=== PATIENT | female | born 1945 | race Caucasian/White ===

== ENCOUNTER 2017-10-03 12:34 | Observation (INO) | payer MEDICARE, BC ==
[2017-10-03 14:29] LABS: Basophils # (A) 0.1 k/uL (0-0.2); Basophils % (A) 1 %; Eosinophils # (A) 0.3 k/uL (0-0.7); Eosinophils % (A) 3 %; HCT 47.6 % (34.0-46.0); HGB 15.5 gm/dL (11.4-16.0); Lymphocytes # (A) 1.7 k/uL (1.0-4.8); Lymphocytes % (A) 23 %; MCHC 32.5 g/dL (31.0-37.0); MCV 92.3 fL (80.0-100.0); Mean Platelet Volume 8.2; Monocytes # (A) 0.3 k/uL (0-1.0); Monocytes % (A) 4 %; Neutrophils % (A) 67 %; Platelet Count 227 k/uL (150-450); RBC 5.16 m/uL (3.80-5.40); RDW 14.6 % (11.5-15.5); WBC 7.5 k/uL (3.8-10.6)
[2017-10-03 14:33] LABS: Partial Thromboplastin Time 23.4 sec (22.0-30.0); Prothrombin Time 9.9 sec (9.0-12.0)
[2017-10-03 14:35] LABS: Appearance,Urine Clear (Clear); Bacteria,Urine Moderate /hpf; Bilirubin,Urine Negative (Negative); Blood,Urine Negative (Negative); Color,Urine Yellow; Glucose,Urine (UA) Negative (Negative); Ketones,Urine Negative (Negative); Leukocyte Esterase,Urine Large (Negative); Mucus,Urine Rare /hpf; Nitrite,Urine Negative (Negative); PH, Urine 6.5 (5.0-8.0); Protein,Urine Negative (Negative); RBC,Urine 5 /hpf (0-5); Urobilinogen,Urine <2.0 mg/dL (<2.0); WBC,Urine 22 /hpf (0-5)
[2017-10-03 14:38] LABS: ALT 31 U/L (9-52); AST 33 U/L (14-36); Albumin 4.5 g/dL (3.5-5.0); Alkaline Phosphatase 73 U/L (38-126); Anion Gap 10 mmol/L; Blood Urea Nitrogen 18 mg/dL (7-17); Calcium 9.7 mg/dL (8.4-10.2); Carbon Dioxide 26 mmol/L (22-30); Chloride 103 mmol/L (98-107); Glucose 93 mg/dL (74-99); Magnesium 1.9 mg/dL (1.6-2.3); Sodium 139 mmol/L (137-145); Total Bilirubin 0.7 mg/dL (0.2-1.3); Total Protein 7.3 g/dL (6.3-8.2)
[2017-10-03 14:42] LABS: Potassium 4.9 mmol/L (3.5-5.1)
[2017-10-03 14:45] LABS: Creatine Kinase 116 U/L (30-135)
--- NOTE | 2017-10-03 14:51 | ED ---
Neuro HPI - General Chief Complaint: Neuro Symptoms/Deficit Stated Complaint: Numbness in side of face and arm Time Seen by Provider: 10/03/17 14:30 Source: patient, RN notes reviewed Mode of arrival: wheelchair Limitations: no limitations - History of Present Illness Is the patient presenting with stroke symptoms?: No Initial Comments: This is a 71-year-old female who states she had an episode of numbness her left leg left arm and left side of her face starting about 11 AM this morning. Lasted about 15 minutes and resolve she has similar episode one or 2 weeks ago which lasted about the same period time. She has no prior history of strokes or TIAs she does states she had not her neck from washing her dog earlier in the week. She denies any blurry vision headache loss of function to her upper or lower extremities at this time no other complaints - Related Data Home Medications: Home Medications Medication Instructions Recorded Confirmed Flurbiprofen [Ansaid] 100 mg PO HS 10/06/15 10/03/17 Fluticasone/Salmeterol [Advair 1 inhalation PO RT-BID 10/06/15 10/03/17 500-50 Diskus] Venlafaxine HCl ER [Effexor Xr] 37.5 mg PO HS 10/06/15 10/03/17 Albuterol Inhaler [Ventolin Hfa 2 puff INHALATION RT-Q6H PRN 10/03/17 10/03/17 Inhaler] Albuterol Nebulized [Ventolin 2.5 mg INHALATION RT-Q6H PRN 10/03/17 10/03/17 Nebulized] Ascorbic Acid [Vitamin C] 250 mg PO DAILY 10/03/17 10/03/17 Cholecalciferol [Vitamin D3] 5,000 unit PO DAILY 10/03/17 10/03/17 Multivitamin/Iron/Folic Acid 1 tab PO DAILY 10/03/17 10/03/17 [Centrum Complete Multivit Tab] Tiotropium 18 Mcg/Puff [Spiriva] 1 cap INHALATION RT-DAILY 10/03/17 10/03/17 Allergies/Adverse Reactions: Allergies Allergy/AdvReac Type Severity Reaction Status Date / Time sulfamethoxazole Allergy Unknown Unknown Verified 10/03/17 14:05 [From Bactrim] trimethoprim [From Bactrim] Allergy Unknown Unknown Verified 10/03/17 14:05 Review of Systems ROS Statement: Those systems with pertinent positive or pertinent negative responses have been documented in the HPI. ROS Other: All systems not noted in ROS Statement are negative. General Exam - General Exam Comments Initial Comments: This is a well-developed well-nourished awake alert oriented 3 female Limitations: no limitations General appearance: alert, in no apparent distress Head exam: Present: atraumatic, normocephalic, normal inspection Eye exam: Present: normal appearance, PERRL, EOMI. Absent: scleral icterus, conjunctival injection, periorbital swelling ENT exam: Present: normal exam, mucous membranes moist Neck exam: Present: normal inspection. Absent: tenderness, meningismus, lymphadenopathy Respiratory exam: Present: normal lung sounds bilaterally. Absent: respiratory distress, wheezes, rales, rhonchi, stridor Cardiovascular Exam: Present: regular rate, normal rhythm, normal heart sounds. Absent: systolic murmur, diastolic murmur, rubs, gallop, clicks GI/Abdominal exam: Present: soft, normal bowel sounds. Absent: distended, tenderness, guarding, rebound, rigid Extremities exam: Present: normal inspection, full ROM, normal capillary refill. Absent: tenderness, pedal edema, joint swelling, calf tenderness Back exam: Present: normal inspection Neurological exam: Present: alert, oriented X3, CN II-XII intact Psychiatric exam: Present: normal affect, normal mood Skin exam: Present: warm, dry, intact, normal color. Absent: rash Stroke [facility] - Lab Data Result diagrams: 10/03/17 14:13 10/03/17 14:13 Lab Results 10/03/17 10/03/17 10/03/17 Range/Units 14:13 14:13 14:13 WBC 7.5 (3.8-10.6) k/uL RBC 5.16 (3.80-5.40) m/uL Hgb 15.5 (11.4-16.0) gm/dL Hct 47.6 H (34.0-46.0) % MCV 92.3 (80.0-100.0) fL MCH 30.0 (25.0-35.0) pg MCHC 32.5 (31.0-37.0) g/dL RDW 14.6 (11.5-15.5) % Plt Count 227 (150-450) k/uL Neutrophils % 67 % Lymphocytes % 23 % Monocytes % 4 % Eosinophils % 3 % Basophils % 1 % Neutrophils # 5.0 (1.3-7.7) k/uL Lymphocytes # 1.7 (1.0-4.8) k/uL Monocytes # 0.3 (0-1.0) k/uL Eosinophils # 0.3 (0-0.7) k/uL Basophils # 0.1 (0-0.2) k/uL PT (9.0-12.0) sec INR (<1.2) APTT (22.0-30.0) sec Sodium 139 (137-145) mmol/L Potassium 4.9 (3.5-5.1) mmol/L Chloride 103 (98-107) mmol/L Carbon Dioxide 26 (22-30) mmol/L Anion Gap 10 mmol/L BUN 18 H (7-17) mg/dL Creatinine 0.64 (0.52-1.04) mg/dL Est GFR (MDRD) Af Amer >60 (>60 ml/min/1.73 sqM) Est GFR (MDRD) Non-Af >60 (>60 ml/min/1.73 sqM) Glucose 93 (74-99) mg/dL Calcium 9.7 (8.4-10.2) mg/dL Magnesium 1.9 (1.6-2.3) mg/dL Total Bilirubin 0.7 (0.2-1.3) mg/dL AST 33 (14-36) U/L ALT 31 (9-52) U/L Alkaline Phosphatase 73 (38-126) U/L Total Creatine Kinase 116 (30-135) U/L CK-MB (CK-2) 1.8 (0.0-2.4) ng/mL CK-MB (CK-2) Rel Index 1.6 Troponin I <0.012 (0.000-0.034) ng/mL Total Protein 7.3 (6.3-8.2) g/dL Albumin 4.5 (3.5-5.0) g/dL Urine Color Urine Appearance (Clear) Urine pH (5.0-8.0) Ur Specific Engelhard (1.001-1.035) Urine Protein (Negative) Urine Glucose (UA) (Negative) Urine Ketones (Negative) Urine Blood (Negative) Urine Nitrite (Negative) Urine Bilirubin (Negative) Urine Urobilinogen (<2.0) mg/dL Ur Leukocyte Esterase (Negative) Urine RBC (0-5) /hpf Urine WBC (0-5) /hpf Urine Bacteria (None) /hpf Urine Mucus (None) /hpf 10/03/17 10/03/17 Range/Units 14:13 14:13 WBC (3.8-10.6) k/uL RBC (3.80-5.40) m/uL Hgb (11.4-16.0) gm/dL Hct (34.0-46.0) % MCV (80.0-100.0) fL MCH (25.0-35.0) pg MCHC (31.0-37.0) g/dL RDW (11.5-15.5) % Plt Count (150-450) k/uL Neutrophils % % Lymphocytes % % Monocytes % % Eosinophils % % Basophils % % Neutrophils # (1.3-7.7) k/uL Lymphocytes # (1.0-4.8) k/uL Monocytes # (0-1.0) k/uL Eosinophils # (0-0.7) k/uL Basophils # (0-0.2) k/uL PT 9.9 (9.0-12.0) sec INR 1.0 (<1.2) APTT 23.4 (22.0-30.0) sec Sodium (137-145) mmol/L Potassium (3.5-5.1) mmol/L Chloride (98-107) mmol/L Carbon Dioxide (22-30) mmol/L Anion Gap mmol/L BUN (7-17) mg/dL Creatinine (0.52-1.04) mg/dL Est GFR (MDRD) Af Amer (>60 ml/min/1.73 sqM) Est GFR (MDRD) Non-Af (>60 ml/min/1.73 sqM) Glucose (74-99) mg/dL Calcium (8.4-10.2) mg/dL Magnesium (1.6-2.3) mg/dL Total Bilirubin (0.2-1.3) mg/dL AST (14-36) U/L ALT (9-52) U/L Alkaline Phosphatase (38-126) U/L Total Creatine Kinase (30-135) U/L CK-MB (CK-2) (0.0-2.4) ng/mL CK-MB (CK-2) Rel Index Troponin I (0.000-0.034) ng/mL Total Protein (6.3-8.2) g/dL Albumin (3.5-5.0) g/dL Urine Color Yellow Urine Appearance Clear (Clear) Urine pH 6.5 (5.0-8.0) Ur Specific Engelhard 1.010 (1.001-1.035) Urine Protein Negative (Negative) Urine Glucose (UA) Negative (Negative) Urine Ketones Negative (Negative) Urine Blood Negative (Negative) Urine Nitrite Negative (Negative) Urine Bilirubin Negative (Negative) Urine Urobilinogen <2.0 (<2.0) mg/dL Ur Leukocyte Esterase Large H (Negative) Urine RBC 5 (0-5) /hpf Urine WBC 22 H (0-5) /hpf Urine Bacteria Moderate H (None) /hpf Urine Mucus Rare H (None) /hpf - NIH Stroke Scale 1a. Level of Consciousness: (0) alert 1b. LOC Questions: (0) answers correctly 1c. LOC Commands: (0) performs tasks correctly 2. Best Gaze: (0) normal 3. Visual: (0) no visual loss 4. Facial Palsy: (0) normal symmetrical movement 5a. Motor Arm Left: (0) no drift 5b. Motor Arm Right: (0) no drift 6a. Motor Leg Left: (0) no drift 6b. Motor Leg Right: (0) no drift 7. Limb Ataxia: (0) absent 8. Sensory: (0) normal 9. Best Language: (0) no aphasia 10. Dysarthria: (0) normal 11. Extinction/Inattention: (0) no abnormality - Medical Decision Making I did a long discussion with the patient and her regarding the findings and did recommend admission for evaluation of TIA. Patient will be admitted I did discuss the case with Dr. Banuelos. - EKG Data -: EKG Interpreted by Me EKG shows normal: sinus rhythm (Sinus rhythm rate of 78 IL interval 126 QRS duration 94 QT since QTC of 412/469 this is a normal-appearing EKG some artifact is present) Past Medical History Past Medical History: Cancer, COPD Additional Past Medical History / Comment(s): BASAL CELL CA, ARTHRITIS, OXYGEN AT 2-2.5 LITERS AT HS. History of Any Multi-Drug Resistant Organisms: None Reported Additional Past Surgical History / Comment(s): COLONOSCOPY'S, RETINAL TEAR LEFT EYE, CATARACT RIGHT EYE. Past Anesthesia/Blood Transfusion Reactions: No Reported Reaction Past Psychological History: Depression Smoking Status: Current every day smoker Past Alcohol Use History: Occasional Past Drug Use History: None Reported - Past Family History Mother Family Medical History: No Reported History Course Vital Signs 10/03/17 10/03/17 10/03/17 12:37 15:32 16:25 Temperature 97.8 F Pulse Rate 88 81 79 Respiratory 20 18 18 Rate Blood Pressure 177/92 159/100 157/91 O2 Sat by Pulse 96 96 96 Oximetry Disposition Clinical Impression: Transient cerebral ischemia Disposition: ADMITTED IP TO THIS HOSP Condition: Stable Referrals: Jamie Brooks DO [Primary Care Provider] - 1-2 days
[2017-10-03 14:58] LABS: Creatine Kinase MB 1.8 ng/mL (0.0-2.4); Troponin I <0.012 ng/mL (0.000-0.034)
--- NOTE | 2017-10-03 14:59 | CT ---
EXAMINATION TYPE: CT brain wo con DATE OF EXAM: 10/03/2017 COMPARISON: NONE HISTORY: Left sided body numbness lasting about [address] DLP: 981.[address] of the brain was performed. The ventricles, basal cisterns and sulci overlying the cerebral convexities demonstrate mild enlargem ent. Small area of remote insult left frontal lobe. There is no evidence for intracranial hemorrhage or sulcal effacement. There is decreased attenuation about the periventricular white matter and deep white matter of both c erebral hemispheres, compatible with chronic small vessel ischemia. Differential diagnosis does inclu de demyelination. No mass effects are seen.No midline shift. Osseous calvarium is intact. If symptoms persist consider MRI. IMPRESSION: 1. Age related atrophic and chronic small vessel ischemic change without acute intracranial process s een at this time.
--- NOTE | 2017-10-03 15:00 | XR ---
EXAMINATION TYPE: XR chest 2V DATE OF EXAM: 10/03/2017 COMPARISON: 01/06/2017 TECHNIQUE: PA and lateral views submitted. HISTORY: Left-sided numbness FINDINGS: The lungs are clear and there is no pneumothorax, pleural effusion, or focal pneumonia. Degenerativ e change of the spine. Hyperinflation suggests COPD. Atherosclerotic change of the aorta. IMPRESSION: 1. No acute process.
[2017-10-03] MEDS ORDERED: SODIUM CHLORIDE 0.9% 1,000 ML IV SCH (16:30)
[2017-10-03] MEDS ORDERED: ALBUTEROL NEBULIZED 2.5 MG/3 ML INHALATION PRN (16:31)
[2017-10-03] MEDS: SYMBICORT 160-4.5 MCG INHALER INHALATION SCH (19:12)
[2017-10-03 20:33] VITALS: RESP 16; BMI 23.6
[2017-10-03] MEDS ORDERED: FLURBIPROFEN 100 MG PO SCH (21:00)
[2017-10-03] MEDS ORDERED: VENLAFAXINE HCL ER 37.5 MG CAP PO SCH (21:00)
[2017-10-03] MEDS ORDERED: ALPRAZolam 0.25 MG TAB PO PRN (22:19)
[2017-10-03] MEDS ORDERED: TEMAZEPAM 15 MG CAP PO PRN (22:19)
[2017-10-03] MEDS ORDERED: VENLAFAXINE HCL ER 37.5 MG CAP PO ONE (23:50)
--- NOTE | 2017-10-04 03:42 | HP ---
HISTORY AND PHYSICAL DATE OF SERVICE: 10/03/2017 CHIEF COMPLAINT: Numbness of the left side, including the face. HISTORY OF PRESENT ILLNESS: This 71-year-old woman with a past medical history of multiple medical problems, including history of COPD, history of basal cell carcinoma, history of depression, nicotine dependence, being followed by Dr. Brooks in the outpatient setting, apparently had episodes of numbness about 4 days ago, with initial numbness of the leg and subsequently it radiated to the arm and subsequently to the left side of the face lasted about 10 minutes, then subsequently patient was doing fine. Today again she had almost recurrent symptoms and this lasted again for 10 minutes, and the patient came to [facility] and was admitted for further evaluation treatment. CBC and BMP were within normal limits. UA showed some evidence of UTI. CT scan of the brain showed age-related atrophic changes without any focal lesions. There is no history of fever, rigor or chills, no history of headache , loss of consciousness, seizures. PAST MEDICAL HISTORY: 1. History of COPD. 2. History of basal cell carcinoma. 3. History of cataracts. 4. History of depression. HOME MEDICATIONS: 1. Albuterol HFA 2 puffs q.6 p.r.n. 2. Spiriva 1 puff 1 cap daily. 3. Ventolin 2.5 q.6 p.r.n. 4. Effexor XR 37.5 mg at bedtime. 5. Multivitamins 1 p.o. daily. 6. Vitamin D3 5000 daily. 7. Vitamin C 250 mg p.o. daily. 8. Advair 500/50 one puff b.i.d. 9. Ibuprofen 100 mg p.o. at bedtime. ALLERGIES: BACTRIM. FAMILY HISTORY: No history of heart disease or strokes in the family. SOCIAL HISTORY: History of smoking on a daily basis. No history of alcohol intake. REVIEW OF SYSTEMS: ENT: As mentioned earlier. No diminished hearing. No diminished vision. CARDIOVASCULAR SYSTEM: No angina, palpitations. RESPIRATORY SYSTEM: No cough, hemoptysis. GI: No nausea, vomiting. : No dysuria or retention. NERVOUS SYSTEM: As mentioned earlier. ALLERGY/IMMUNOLOGY: No asthma, hayfever. MUSCULOSKELETAL: As mentioned earlier. HEMATOLOGY/ONCOLOGY: No history of anemia. ENDOCRINE: No history of diabetes, hypothyroidism. CONSTITUTIONAL: As mentioned earlier. DERMATOLOGY: Negative. RHEUMATOLOGY: Negative. PSYCHIATRY: As mentioned earlier. PHYSICAL EXAMINATION: The patient is alert and oriented x3. Pulse is 81, blood pressure 140/60, respiration 16, temperature 97.2, pulse ox 92% on room air. HEENT: Conjunctivae normal. NECK: No jugular venous distention. CARDIOVASCULAR SYSTEM: S1, S2 muffled. RESPIRATORY SYSTEM: Breath sounds diminished at the bases. No rhonchi. No crackles. ABDOMEN: Soft, non-tender. No mass palpable. LEGS: No edema. No swelling. NERVOUS SYSTEM: Higher functions as mentioned earlier. Cranial nerves 2 through 12 grossly intact. No focal motor or sensory deficit. No signs of cerebellar dysfunction. LYMPHATICS: No lymph node palpable in neck, axillae or groin. JOINTS: No active deforming arthropathy. SKIN: No ulcer, rash, bleeding. LABS/INVESTIGATIONS: At this time CBC is within normal limits and BUN is 18. UA shows possible UTI. ASSESSMENT: 1. Numbness of the left side of the body; possible acute transient ischemic attack involving the right hemisphere. 2. Urinary tract infection, acute. 3. History of chronic obstructive pulmonary disease. 4. History of basal cell carcinoma. 5. History of degenerative joint disease. 6. Chronic hypoxic respiratory failure. 7. History of retinal tear in the left eye. 8. Depression. 9. History of continued ongoing nicotine dependence. RECOMMENDATIONS AND DISCUSSION: In this 71-year-old woman who presented with multiple complex medical issues, we will monitor the patient closely, continue the current medications, continue with symptomatic treatment. Will recommend neuro checks and neurovascular workup and neurology evaluation. Otherwise, antiplatelet agents. Resume the home medications. Check cholesterol. Guarded prognosis because of multiple complex medical issues. Further recommendations to follow. MMODL / IJN: [id number] / MTDMaryam
[2017-10-04 06:29] LABS: Basophils # (A) 0.1 k/uL (0-0.2); Basophils % (A) 1 %; Eosinophils # (A) 0.3 k/uL (0-0.7); Eosinophils % (A) 5 %; HCT 45.5 % (34.0-46.0); HGB 14.5 gm/dL (11.4-16.0); Lymphocytes # (A) 1.9 k/uL (1.0-4.8); Lymphocytes % (A) 30 %; MCH 29.5 pg (25.0-35.0); MCHC 31.8 g/dL (31.0-37.0); MCV 92.7 fL (80.0-100.0); Mean Platelet Volume 7.9; Monocytes # (A) 0.3 k/uL (0-1.0); Monocytes % (A) 5 %; Neutrophils # (A) 3.7 k/uL (1.3-7.7); Neutrophils % (A) 57 %; Platelet Count 220 k/uL (150-450); RBC 4.91 m/uL (3.80-5.40); RDW 15.2 % (11.5-15.5); WBC 6.4 k/uL (3.8-10.6)
[2017-10-04 06:42] LABS: Anion Gap 11 mmol/L; Blood Urea Nitrogen 17 mg/dL (7-17); Calcium 9.4 mg/dL (8.4-10.2); Carbon Dioxide 26 mmol/L (22-30); Chloride 103 mmol/L (98-107); Cholesterol 196 mg/dL (<200); Glucose 105 mg/dL (74-99); HDL Cholesterol 91 mg/dL (40-60); LDL Cholesterol,Calculated 91 mg/dL (0-99); Sodium 140 mmol/L (137-145); Triglycerides 70 mg/dL (<150)
[2017-10-04] MEDS ORDERED: PANTOPRAZOLE 40 MG TABLET PO SCH (07:30)
[2017-10-04] MEDS: NICOTINE 14MG/24HR PATCH TRANSDERM SCH ×2 (08:33→08:37)
[2017-10-04 08:39] VITALS: BP 157/87; TEMP 97.3
[2017-10-04] MEDS ORDERED: CHOLECALCIFEROL 1,000 UNIT TAB PO SCH (09:00)
[2017-10-04] MEDS ORDERED: ASCORBIC ACID 500 MG TAB PO SCH (09:00)
[2017-10-04] MEDS: SYMBICORT 160-4.5 MCG INHALER INHALATION SCH (09:02)
[2017-10-04] MEDS: IPRATROPIUM 0.5 MG/2.5 ML NEBU INHALATION SCH ×3 (09:02→15:37)
--- NOTE | 2017-10-04 11:16 | US ---
EXAMINATION TYPE: US carotid duplex BILAT DATE OF EXAM: 10/04/2017 COMPARISON: NONE CLINICAL HISTORY: stenosis. Left side numbness, no hx of tia EXAM MEASUREMENTS: RIGHT: Peak Systolic Velocity (PSV) cm/sec ----- Right CCA: 52.9 ----- Right ICA: 40.9 ----- Right ECA: 68.6 ICA/CCA ratio: 0.8 RIGHT: End Diastole cm/sec ----- Right CCA: 15.4 ----- Right ICA: 14.0 ----- Right ECA: 17.1 LEFT: Peak Systolic Velocity (PSV) cm/sec ----- Left CCA: 53.9 ----- Left ICA: 56.7 ----- Left ECA: 70.4 ICA/CCA ratio: 1.1 LEFT: End Diastole cm/sec ----- Left CCA: 18.2 ----- Left ICA: 15.4 ----- Left ECA: 15.4 VERTEBRALS (direction of flow): Right Vertebral: Antegrade Left Vertebral: Antegrade Rhythm: Normal No elevated velocities or significant stenosis. Left CCA wall thickening. Plaque seen in bilateral b ulbs. Grayscale, color Doppler, spectral Doppler imaging performed of the carotid arteries. IMPRESSION: No hemodynamic significant stenosis of the proximal internal carotid arteries bilaterall y by Doppler criteria, an indirect measurement of carotid stenosis
[2017-10-04] MEDS ORDERED: LEVOFLOXACIN 500MG-D5W PMX 500 MG in DEXTROSE/WATER 1 100ML.BAG IVPB SCH (12:00)
[2017-10-04] MEDS ORDERED: MULTIVITAMINS, THERA 1 EACH TAB PO SCH (12:00)
[2017-10-04] MEDS ORDERED: ASPIRIN 325 MG TAB PO SCH (12:00)
[2017-10-04 12:38] VITALS: PULSE 88
--- NOTE | 2017-10-04 13:59 | ECHOF ---
Referral Reason:Stroke MEASUREMENTS -------- HEIGHT: 162.6 cm WEIGHT: 62.6 kg BP: 143/93 IVSd: 1.2 cm (0.6 - 1.1) LVIDd: 3.8 cm (3.9 - 5.3) LVPWd: 1.3 cm (0.6 - 1.1) IVSs: 1.5 cm LVIDs: 3.1 cm LVPWs: 1.6 cm LAESV Index (A-L): 19.76 ml/m Ao Diam: 2.9 cm (2.0 - 3.7) AV Cusp: 1.8 cm (1.5 - 2.6) LA Diam: 2.5 cm (2.7 - 3.8) MV EXCURSION: 17.918 mm (> 18.000) MV EF SLOPE: 39 mm/s (70 - 150) EPSS: 0.5 cm MV E Awais: 1.07 m/s MV DecT: 166 ms MV A Awais: 1.05 m/s MV E/A Ratio: 1.03 AR PHT: 166 ms RAP: 5.00 mmHg RVSP: 29.24 mmHg FINDINGS -------- Sinus rhythm. This was a technically good study. The left ventricular size is normal. There is mild concentric left ventricular hypertrophy. Overa ll left ventricular systolic function is moderately impaired with, an EF between 35 - 40 %. Basal a nterior LV wall motion is hypokinetic. Mid anterior LV wall motion is hypokinetic. Inferiorlate ral Hypokinesis The right ventricle is normal in size and function. Normal LA size by volume 22+/-6 ml/m2. The right atrium is normal in size. Aortic valve is trileaflet and is mildly thickened. Trace amount of aortic regurgitation. The mitral valve leaflets are mildly thickened. Mild mitral regurgitation is present. Mild tricuspid regurgitation present. The right ventricular systolic pressure, as measured by Doppl er, is 29.24mmHg. Pulmonic valve appears structurally normal. The aortic root size is normal. Normal inferior vena cava with normal inspiratory collapse consistent with estimated right atrial pre ssure of 5 mmHg. CONCLUSIONS -------- 1. Sinus rhythm. 2. This was a technically good study. 3. The left ventricular size is normal. 4. There is mild concentric left ventricular hypertrophy. 5. Basal anterior LV wall motion is hypokinetic. 6. Mid anterior LV wall motion is hypokinetic. 7. Inferiorlateral Hypokinesis 8. The right ventricle is normal in size and function. 9. Normal LA size by volume 22+/-6 ml/m2. 10. The right atrium is normal in size. 11. Aortic valve is trileaflet and is mildly thickened. 12. Trace amount of aortic regurgitation. 13. The mitral valve leaflets are mildly thickened. 14. Mild mitral regurgitation is present. 15. Mild tricuspid regurgitation present. 16. The right ventricular systolic pressure, as measured by Doppler, is 29.24mmHg. 17. Pulmonic valve appears structurally normal. 18. The aortic root size is normal. 19. Normal inferior vena cava with normal inspiratory collapse consistent with estimated right atrial pressure of 5 mmHg. TRANSCRIPTION COORDINATOR: Stacy Ferrer RDCS
[2017-10-04] MEDS ORDERED: ATORVASTATIN 40 MG TAB PO SCH (21:00)
--- NOTE | 2017-10-04 21:31 | P.CNNES ---
History of Present Illness Consult date: 10/04/17 Requesting physician: Pedro Pat Reason for Consult: TIA Chief complaint: Left sided weakness, numbness and tingling History of Present Illness: Neurology is consulting on a 71 year old female that had two events of transient left upper and lower extremity numbness and tingling in the last 7-10 days. Occurrences last up to 15 minutes then self resolve. Patient has no prior CVA. Patient has an intermittent use history of 81 mg aspirin but states that she only takes the aspirin 1-2 times per week. The patient denies being on any anti-hyperlipdemic medications. She denies blurry vision, headache, loss of function in the upper or lower extremities or other neurological deficits. On contact, the patient was AOx4, seated at the edge of the bed eating in no acute distress. Review of Systems All systems not noted in HPI are negative. Past Medical History Past Medical History: Cancer, COPD Additional Past Medical History / Comment(s): BASAL CELL CA, ARTHRITIS, OXYGEN AT 2-2.5 LITERS AT HS. History of Any Multi-Drug Resistant Organisms: None Reported Additional Past Surgical History / Comment(s): COLONOSCOPY'S, RETINAL TEAR LEFT EYE, CATARACT RIGHT EYE. Past Anesthesia/Blood Transfusion Reactions: No Reported Reaction Past Psychological History: Depression Smoking Status: Current every day smoker Past Alcohol Use History: Occasional Additional Past Alcohol Use History / Comment(s): 50 YRS. SMOKES 1/2 PPD Past Drug Use History: None Reported - Past Family History Mother Family Medical History: No Reported History Medications and Allergies Home Medications Medication Instructions Recorded Confirmed Type Flurbiprofen [Ansaid] 100 mg PO HS 10/06/15 10/03/17 History Fluticasone/Salmeterol [Advair 1 inhalation PO RT-BID 10/06/15 10/03/17 History 500-50 Diskus] Venlafaxine HCl ER [Effexor XR] 37.5 mg PO HS 10/06/15 10/03/17 History Albuterol Inhaler [Ventolin Hfa 2 puff INHALATION RT-Q6H PRN 10/03/17 10/03/17 History Inhaler] Albuterol Nebulized [Ventolin 2.5 mg INHALATION RT-Q6H PRN 10/03/17 10/03/17 History Nebulized] Ascorbic Acid [Vitamin C] 250 mg PO DAILY 10/03/17 10/03/17 History Cholecalciferol [Vitamin D3] 5,000 unit PO DAILY 10/03/17 10/03/17 History Multivitamin/Iron/Folic Acid 1 tab PO DAILY 10/03/17 10/03/17 History [Centrum Complete Multivit Tab] Tiotropium 18 Mcg/Puff [Spiriva] 1 cap INHALATION RT-DAILY 10/03/17 10/03/17 History Aspirin EC [Ecotrin Low Dose] 81 mg PO DAILY #30 tablet. 10/04/17 Rx Atorvastatin [Lipitor] 40 mg PO HS #30 tablet 10/04/17 Rx Cefuroxime Axetil [Ceftin] 500 mg PO BID #10 tab 10/04/17 Rx Metoprolol Tartrate [Lopressor] 12.5 mg PO BID #60 dose 10/04/17 Rx Nicotine 14Mg/24Hr Patch [Habitrol] 1 patch TRANSDERM DAILY #30 patch 10/04/17 Rx Allergies Allergy/AdvReac Type Severity Reaction Status Date / Time sulfamethoxazole Allergy Unknown Unknown Verified 10/03/17 14:05 [From Bactrim] trimethoprim [From Bactrim] Allergy Unknown Unknown Verified 10/03/17 14:05 Physical Examination - Vital Signs Vital Signs: Vital Signs Temp Pulse Pulse Resp BP Pulse Ox 10/04/17 12:37 88 10/04/17 12:27 84 10/04/17 08:00 97.3 F L 93 16 157/87 93 L 10/04/17 04:00 97.0 F L 83 16 143/93 92 L 10/04/17 00:00 97.0 F L 82 16 138/85 96 Intake and Output 10/04/17 10/04/17 10/04/17 06:59 14:59 22:59 Intake Total 160 240 Balance 160 240 Intake: IV 160 Sodium Chloride 0.9% 1, 160 000 ml @ 20 mls/hr IV . Q24H [facility] Rx#:[id number] Oral 240 Other: Voiding Method Toilet # Voids 2 1 Weight 62.6 kg Constitutional: AOx4, cooperative HEENT: NC/AT, no facial asymmetry is seen. Throat: Supple, no masses Respiratory: No increased work of breathing Cardiac: Regular rate and Rhythm GI: non tender, non distended Musculoskeletal: Commercial Airline Pilot strengths are equal bilaterally 5-/5, Lower extremity strengths are equal bilaterally at 5-/5. Neurological: CN II-XII in tact, patient was AOx4, speech and language are normal, no unilateralizing weakness, no seizure activity note on physical exam. Sensation was normal. Integementary: no rash, no erythema Psychiatric: mood and affect appropriate Results CT Brain: age related chronic small vessel ischemic disease wihtout an acute intracranial process seen. Carotid doppler: No hemodynamically significant carotid stenosis. - Laboratory Findings CBC and BMP: 10/04/17 06:13 10/04/17 06:13 Abnormal Lab Findings: Abnormal Labs 10/03/17 10/03/17 10/03/17 14:13 14:13 14:13 Hct 47.6 H BUN 18 H Glucose HDL Cholesterol Ur Leukocyte Esterase Large H Urine WBC 22 H Urine Bacteria Moderate H Urine Mucus Rare H 10/04/17 06:13 Hct BUN Glucose 105 H HDL Cholesterol 91 H Ur Leukocyte Esterase Urine WBC Urine Bacteria Urine Mucus Assessment and Plan (1) Transient cerebral ischemia Status: Acute Code(s): G45.9 - TRANSIENT CEREBRAL ISCHEMIC ATTACK, UNSPECIFIED SNOMED Code(s): 346327015 (2) Encephalopathy Status: Acute Code(s): G93.40 - ENCEPHALOPATHY, UNSPECIFIED SNOMED Code(s): 01549026 Plan: 1. TIA 2. Encephalopathy secondary to infectious process Patient does appear to have experienced two episodes of TIA in the last 10 days involving the left upper and lower extremity with associated numbness and tingling. Patient has no current symptoms and has remained symptom free since the past occurrence which necessitated her presentation at the ED on 10/03/17. Patient was placed back on 81 mg aspirin daily by neurology and lipitor 40 mg due to multiple TIA/CVA event history consistent with updated guidelines, despite lipid panel results with only noted elevated HDL's. Patient was explained the importance of medication adherence for risk reduction. Patient expressed understanding. Patient has an infrequent use of aspirin in the past. Patient also appears to have encephalopathy secondary to infectious process as noted in her urine WBC results at 22. Correct underlying etiology. Hospitalist wanted to discharge patient. Given resolution of the TIA symptoms, the patient can have EEG performed out patient. Status: Patient can be cleared for discharged from a neurological standpoint. Joey Turner, TYPE PHOTOGRAPHY SUPERVISOR-C Neurology For Dr Koby Frankel I discussed the patient's pertinent medical information with Dr. Frankel. He agrees with the plan of care as implemented.
[2017-10-05] MEDS ORDERED: ASPIRIN 81 MG PO SCH (09:00)
--- NOTE | 2017-10-05 09:00 | DS ---
DISCHARGE SUMMARY DATE OF SERVICE: 10/04/2017. FINAL DIAGNOSES: 1. Numbness of the left side of the body, possible acute transient ischemic attack involving the right hemisphere. 2. Urinary tract infection, acute. 3. History of chronic obstructive pulmonary disease. 4. History of basal cell carcinoma. 5. History of degenerative joint disease. 6. Chronic hypoxic respiratory failure. 7. History of retinal tear in the left eye. 8. Depression. 9. Continued ongoing nicotine dependence. 10.Congestive heart failure with chronic systolic dysfunction, ejection fraction 30% to 40%. DISCHARGE DISPOSITION: The patient will be discharged in stable condition with guarded prognosis. HISTORY OF PRESENT ILLNESS: This 71-year-old woman with past medical history of multiple medical problems admitted with numbness of the left side of the body. Neurologically, the patient was free and initial neurovascular workup was negative also. The patient will be discharged in stable condition with guarded prognosis. A 2-D echo showed ejection fraction about 30% to 40%. Carotid Doppler showed no hemodynamically significant stenosis. On exam, vitals are stable. No focal deficits. CHEST: Clear. DISCHARGE ADVICE: 1. Diet is cardiac. 2. Activity limited until followup. 3. Follow up with Dr. French in 2 to 3 days. 4. Follow up with Dr. Frankel as advised. 5. Follow up with Cardiology as recommended. Medications are: 1. Ventolin HFA 2 puffs q.6 p.r.n. 2. Albuterol q.i.d. and p.r.n. 3. Vitamin C 250 mg daily. 4. Ecotrin 81 mg daily. 5. Lipitor 40 mg q.h.s. 6. Ceftin 500 mg p.o. b.i.d. for 5 days. 7. Vitamin D3, 5000. 8. Ansaid 100 mg p.o. q.h.s. 9. Fluticasone salmeterol, Advair, one puff b.i.d. 10.Multivitamins 1 daily. 11.Habitrol 14 daily. 12.Spiriva 1 puff daily. 13.Effexor XR 37 5 mg p.o. q.h.s. 14.Lopressor 12.5 mg b.i.d. Once again, the patient will be discharged in a stable condition with guarded prognosis. MMODL / IJN: [id number] /
--- NOTE | 2017-10-10 16:17 | CDI ---
Outpatient Documentation Clarification Form Date: 10/10/17 CDS/Clinical Science Liaison Name: ROSANNE VANEGAS Phone: If you have question, contact Nguyen Jordan Plunger Scoop Operator at M-F 8:30 am to 6pm. Patient Name: DARIA CARNEY Admit Date: 10/03/17 Discharge Date: 10/04/17 ATTENTION: The Clinical Documentation Specialists (CDI) and [facility] Coding Staff appreciate your assistance in clarifying documentation. Please respond to the clarification below the line at the bottom and electronically sign. The CDI & [facility] Coding staff will review the response and follow-up if needed. Please note: Queries are made part of the Legal Health Record. If you have any questions, please contact the author of this message via ITS or call the Plunger Scoop Operator. Dr. Banuelos, In order to capture the most accurate diagnosis for billing this account, please clarify the following. Your discharge summary diagnosis states Numbness of the left side of the body, possible acute TIA Database Design Analyst diagnosis states TIA and Encephalopathy secondary to infectious process Please clarify if the patient did have a TIA or is only possible and not confirmed. Thank you for your time! Rosanne Vanegas, CCS possible acute TIA MTDD
== END 2017-10-04 16:29 ==
LOC: EC 12:34 → 6SEL 16:29 → 4MS4W 10-04 11:25
PROVIDERS: ADMIT Hospitalist; ATTEND Hospitalist
DX: R20.0 Anesthesia of skin (principal); N39.0 Urinary tract infection, site not specified; J44.9 Chronic obstructive pulmonary disease, unspecified; M19.90 Unspecified osteoarthritis, unspecified site; J96.11 Chronic respiratory failure with hypoxia; F32.9 Major depressive disorder, single episode, unspecified; F17.200 Nicotine dependence, unspecified, uncomplicated; I50.22 Chronic systolic (congestive) heart failure; F17.210 Nicotine dependence, cigarettes, uncomplicated; Z85.828 Personal history of other malignant neoplasm of skin; Z79.51 Long term (current) use of inhaled steroids; Z79.899 Other long term (current) drug therapy; Z88.1 Allergy status to other antibiotic agents; Z88.2 Allergy status to sulfonamides
CPT/HCPCS: 99285; 36415; 94640 ×2; 93005; 93306; 97161; 92523; 80061; 80053; 80048; 82550; 82553; 83735; 84484; 85025 ×2; 85610; 85730; 81001; 87086; 87077; 87186; 71046; 93880; 70450; G0378 ×3

== ENCOUNTER 2018-09-16 22:00 | Emergency (ER) | payer MEDICARE, BC ==
--- NOTE | 2018-09-16 22:56 | XR ---
EXAMINATION TYPE: XR wrist complete LT DATE OF EXAM: 09/16/2018 COMPARISON: NONE HISTORY: Pain after a fall TECHNIQUE: 3 views FINDINGS: There is impacted comminuted transverse fracture of the distal radial metaphysis. There is no dislocation. Carpal bones are intact. Distal ulna shows nondisplaced fracture of the ulnar styloid process. IMPRESSION: Acute fractures of the distal radius and ulna with slight impaction of the radius.
--- NOTE | 2018-09-16 23:55 | ED ---
General Adult HPI - General Source: patient, RN notes reviewed, old records reviewed Mode of arrival: ambulatory Limitations: no limitations <Leonardo Antunez - Last Filed: 09/17/18 11:32> <Zuri Burris - Last Filed: 09/18/18 09:43> - General Chief complaint: Extremity Injury, Upper Stated complaint: Arm injury - History of Present Illness Initial comments: 72-year-old female patient with past medical history of COPD presents to ED after sustaining a mechanical fall and injury to her left wrist earlier today. Patient states that she was walking on her hardwood floors with socks and when she slipped and fell forward. Patient states that she fell on her outstretched left arm. Patient complains of left wrist pain. Patient denies any trauma to head or neck. Patient denies loss of consciousness. Patient has use of blood thinners. Patient is ambulatory. She denies injury to any other extremity. Patient denies other complaints. Patient denies chest pain, shows breath, abdominal pain, nausea vomiting diarrhea. Systemic: Pt denies fatigue, myalgia, fever/chills, rash. Pt denies weakness, night sweats, weight loss. Neuro: Pt denies headache, visual disturbances, syncope or pre-syncope. HEENT: Pt denies ocular discharge or irritation, otalgia, rhinorrhea, pharyngitis or notable lymphadenopathy. Cardiopulmonary: Pt denies chest pain, SOB, heart palpitations, dyspnea on exertion. Abdominal/GI: Pt denies abdominal pain, n/v/d. : Pt denies dysuria, burning w/ urination, frequency/urgency. Denies new onset urinary or bowel incontinence. MSK: Pt denies myalgia. Neuro: Pt denies new onset weakness, paresthesias. (Leonadro Antunez) - Related Data Home Medications Medication Instructions Recorded Confirmed Flurbiprofen [Ansaid] 100 mg PO HS 10/06/15 10/03/17 Fluticasone/Salmeterol [Advair 1 inhalation PO RT-BID 10/06/15 10/03/17 500-50 Diskus] Venlafaxine HCl ER [Effexor XR] 37.5 mg PO HS 10/06/15 10/03/17 Albuterol Inhaler [Ventolin Hfa 2 puff INHALATION RT-Q6H PRN 10/03/17 10/03/17 Inhaler] Albuterol Nebulized [Ventolin 2.5 mg INHALATION RT-Q6H PRN 10/03/17 10/03/17 Nebulized] Ascorbic Acid [Vitamin C] 250 mg PO DAILY 10/03/17 10/03/17 Cholecalciferol [Vitamin D3] 5,000 unit PO DAILY 10/03/17 10/03/17 Multivitamin/Iron/Folic Acid 1 tab PO DAILY 10/03/17 10/03/17 [Centrum Complete Multivit Tab] Tiotropium 18 Mcg/Puff [Spiriva] 1 cap INHALATION RT-DAILY 10/03/17 10/03/17 Previous Rx's Medication Instructions Recorded Aspirin EC [Ecotrin Low Dose] 81 mg PO DAILY #30 tablet. 10/04/17 Atorvastatin [Lipitor] 40 mg PO HS #30 tablet 10/04/17 Cefuroxime Axetil [Ceftin] 500 mg PO BID #10 tab 10/04/17 Metoprolol Tartrate [Lopressor] 12.5 mg PO BID #60 dose 10/04/17 Nicotine 14Mg/24Hr Patch [Habitrol] 1 patch TRANSDERM DAILY #30 patch 10/04/17 Famotidine [Pepcid] 20 mg PO BID #10 tablet 12/31/17 diphenhydrAMINE [Benadryl] 50 mg PO QID PRN #20 capsule 12/31/17 predniSONE 60 mg PO DAILY #30 tab 12/31/17 Allergies Allergy/AdvReac Type Severity Reaction Status Date / Time sulfamethoxazole Allergy Unknown Unknown Verified 09/16/18 22:29 [From Bactrim] trimethoprim [From Bactrim] Allergy Unknown Unknown Verified 09/16/18 22:29 Review of Systems ROS Other: All systems not noted in ROS Statement are negative. <Leonardo Antunez - Last Filed: 09/17/18 11:32> ROS Other: All systems not noted in ROS Statement are negative. <Zuri Burris - Last Filed: 09/18/18 09:43> ROS Statement: Those systems with pertinent positive or pertinent negative responses have been documented in the HPI. Past Medical History Past Medical History: Cancer, COPD Additional Past Medical History / Comment(s): BASAL CELL CA, ARTHRITIS, OXYGEN AT 2-2.5 LITERS AT HS. History of Any Multi-Drug Resistant Organisms: None Reported Additional Past Surgical History / Comment(s): COLONOSCOPY'S, RETINAL TEAR LEFT EYE, CATARACT RIGHT EYE. Past Anesthesia/Blood Transfusion Reactions: No Reported Reaction Past Psychological History: Depression Smoking Status: Current every day smoker Past Alcohol Use History: Occasional Past Drug Use History: None Reported - Past Family History Mother Family Medical History: No Reported History <Leonardo Antunez - Last Filed: 09/17/18 11:32> General Exam Limitations: no limitations <Leonardo Antunez - Last Filed: 09/17/18 11:32> <Mark Burrisssrae Barker - Last Filed: 09/18/18 09:43> - General Exam Comments Initial Comments: Constitutional: NAD, AOX3, Pt has pleasant affect. HEENT: NC/AT, trachea midline, neck supple, no lymphadenopathy. Posterior pharynx non erythematous, without exudates. External ears appear normal, without discharge. Mucous membranes moist. Eyes PERRLA, EOM intact. There is no scleral icterus. No pallor noted. Cardiopulmonary: RRR, no murmurs, rubs or gallops, no JVD noted. Lungs CTAB in anterior and posterior carey. No peripheral edema. Abdominal exam: Abdomen soft and non-distended. Abdomen non-tender to palpation in all 4 quadrants. Bowel sounds active in LLQ. No hepatosplenomegaly. No ecchymosis Neuro: CN II-XII grossly intact. No nuchal rigidity. MSK: Patient has a mild amount of tenderness to palpation to L distal ulna and distal radius. Pt has full ROM of all digits. Pt sensation intact. Pt has mildly decreased ROM of L wrist due to pain, pt still able to flex/extend, radial and ulnar deviate. No posterior calf tenderness bilaterally, homans sign negative bilaterally. Posterior tibialis and radial pulse +2 bilaterally, capillary refill <2 seconds on all digits. Sensation intact in upper and lower extremities. Full active ROM in upper and lower extremities with exception to wrist, 5/5 strength. (Leonardo Antunez) Vital Signs 09/16/18 09/17/18 22:26 00:13 Temperature 98.2 F 99.1 F Pulse Rate 105 H 70 Respiratory 16 18 Rate Blood Pressure 159/69 155/95 O2 Sat by Pulse 93 L 94 L Oximetry Medical Decision Making <Leonardo Antunez - Last Filed: 09/17/18 11:32> <Zuri Burris - Last Filed: 09/18/18 09:43> - Medical Decision Making 72-year-old female patient with past medical history of COPD presents to ED after sustaining a mechanical fall and injury to her left wrist earlier today. No head or neck trauma, no other injury. Physical exam displayed: Patient has a mild amount of tenderness to palpation to L distal ulna and distal radius. Pt has full ROM of all digits. Pt sensation intact. Pt has mildly decreased ROM of L wrist due to pain, pt still able to flex/extend, radial and ulnar deviate. Radial pulse +2, capillary refill <2 seconds on all digits. Plain film of left wrist displayed acute fracture of the distal radius and ulna with slight impaction and radius. Findings were explained patient length. Patient was placed in a volar splint of left wrist. Patient neurovascularly intact before and after splint placement. Pt rx tylenol 3 starter pack from ED. Patient to follow with orthopedics in 1-2 days. Patient to follow with PCP in 1-2 days. Patient to return to ED if new signs symptoms develop or if condition worsens. Case discussed with Dr. Burris. (Leonardo Antunez) I was available for consultation in the emergency department. The history and physical exam were done by the midlevel provider. I was consulted for this patient's care. I reviewed the case with the midlevel provider and based on their presentation of the patient, I agree with the assessment, medical decision making and plan of care as documented. (Zuri Burris) Disposition Is patient prescribed a controlled substance at d/c from ED?: No <Leonardo Antunez - Last Filed: 09/17/18 11:32> <Zuri Burris - Last Filed: 09/18/18 09:43> Clinical Impression: Fracture of distal end of left radius and ulna Disposition: HOME SELF-CARE Condition: Good Instructions: Wrist Injury (ED), Arm Fracture in Adults (ED) Additional Instructions: Patient to adhere to previously discussed treatment plan and will take medication(s) as directed. Patient to follow up with PCP in 1-2 days. Patient to return to ED if symptoms do not improve. Referrals: Jamie Brooks DO [Primary Care Provider] - 1-2 days Kristian Hutchison MD [STAFF PHYSICIAN] - 1-2 days
[2018-09-17] MEDS ORDERED: ACET/COD 300 MG/30 MG STARTER PACK 6 TAB BTL PO STA (00:09)
[2018-09-17 00:14] VITALS: BP 155/95; PULSE 70; RESP 18; TEMP 99.1
== END 2018-09-17 00:14 | disposition home or self-care (01) ==
LOC: EC 22:00
DX: S52.592A Other fractures of lower end of left radius, initial encounter for closed fracture (principal); S52.615A Nondisplaced fracture of left ulna styloid process, initial encounter for closed fracture; F17.200 Nicotine dependence, unspecified, uncomplicated; J44.9 Chronic obstructive pulmonary disease, unspecified; F32.9 Major depressive disorder, single episode, unspecified; Z79.51 Long term (current) use of inhaled steroids; Z79.899 Other long term (current) drug therapy; Z99.81 Dependence on supplemental oxygen; Z88.2 Allergy status to sulfonamides; Z85.828 Personal history of other malignant neoplasm of skin; W01.0XXA Fall on same level from slipping, tripping and stumbling without subsequent striking against object, initial encounter; Y92.009 Unspecified place in unspecified non-institutional (private) residence as the place of occurrence of the external cause
CPT/HCPCS: 29125; 99284

== ENCOUNTER 2018-09-21 09:51 | Day surgery (SDC) | payer MEDICARE, BC ==
[~2018-09-21 09:51] MED LIST: ceFAZolin IN SWFI 2 GM/20 ML SYRINGE IVP ONE
[2018-09-21] MEDS ORDERED: LACTATED RINGERS 1,000 ML IV ONE ×2 (10:27→14:05)
[2018-09-21] MEDS ORDERED: LIDOCAINE 1% 20 ML VIAL (10MG/ML) FOR IV START INTRADERMA ONE (10:37)
[2018-09-21] MEDS ORDERED: MIDAZOLAM 2 MG/2 ML VIAL IVP ONE (11:02)
[2018-09-21] MEDS ORDERED: DEXAMETHASONE SOD PHOS (MDV) 100 MG/10 ML VIAL IVP ONE (11:16)
[2018-09-21] MEDS ORDERED: ONDANSETRON 4 MG/2 ML VIAL IVP ONE (11:16)
[2018-09-21] MEDS ORDERED: PROPOFOL 10 MG/ML 20 ML VIAL IV ONE (12:41)
[2018-09-21] MEDS ORDERED: LIDOCAINE 1% INJ 10MG/ML (20 ML MDV) ONE (12:41)
[2018-09-21] MEDS ORDERED: ROPIVACAINE 5 MG/ML 30 ML VIAL ONE (12:41)
[2018-09-21] MEDS ORDERED: MIDAZOLAM 2 MG/2 ML VIAL ONE (12:41)
[2018-09-21] MEDS ORDERED: SUCCINYLCHOLINE CHLORIDE 100 MG/5 ML SYR IV ONE (12:41)
[2018-09-21] MEDS ORDERED: PHENYLEPHRINE-0.9% NACL SYG 1 MG/10 ML SYRINGE ONE (12:41)
[2018-09-21] MEDS ORDERED: fentaNYL (PF) 50 MCG/ML 2 ML AMP ONE (12:41)
--- NOTE | 2018-09-21 13:54 | P.ONQ ---
Anesthesiology Proc Note - PNB - Peripheral Nerve Block Performed Left Supraclavicular Single Time Out Performed: Yes Procedure Start Time: 11:02 Procedure Stop Time: 11:10 Indication: Requested by physician Specifically requested for management of pain by DrGerber: Benny Arreola Sedation Type: Sedate with meaningful contact maintained Preparation: Sterile Prep Needle Types: Other (see comment) Needle Size: 100mm (4") Needle Gauge: 21 (Pujunk) Technique: Ultrasound Injectate: 0.5% Ropivacaine (see comment for volume) (20 ml) Blood Aspirated: No Pain Paresthesia on Injection Noted: No Resistance on Injection: Normal Events: Uneventful and Well Tolerated
[2018-09-21] MEDS ORDERED: BUPIVACAIN-EPI 0.25%-1:200,000 30 ML VIAL SQ ONE ×2 (14:10)
--- NOTE | 2018-09-21 14:33 | FL ---
Fluoroscopy HISTORY: Wrist fracture 19 seconds fluoroscopy time supplied to the referring clinician. 3 intraoperative C-arm images docum ent the procedure. See dictated report from orthopedic surgery.
--- NOTE | 2018-09-21 14:34 | XR ---
Limited left wrist HISTORY: Wrist fracture 3 intraoperative C-arm images document the procedure.
[2018-09-21 14:49] VITALS: TEMP 96.8
[2018-09-21 14:51] VITALS: RESP 16
[2018-09-21 16:47] VITALS: BP 119/70
[2018-09-21 17:18] VITALS: PULSE 107
--- NOTE | 2018-09-22 11:04 | P.OP ---
Date of Procedure: 09/21/18 Preoperative Diagnosis: Displaced extra-articular left distal radius fracture Postoperative Diagnosis: Displaced extra-articular left distal radius fracture Procedure(s) Performed: Open reduction and internal fixation of left extra-articular left distal radius fracture (2-part) Implants: Acumed AcuLoc 2 locking volar distal radius plate (left, standard) with locking and cortical screws Anesthesia: other (General plus regional block) Surgeon: Benny Arreola Estimated Blood Loss (ml): 10 Pathology: none sent Condition: stable Disposition: PACU Indications for Procedure: The patient is a 72 year-old female who experienced a mechanical fall and sustained a displaced left distal radius fracture. Surgical treatment was recommended. Risks and benefits were reviewed in the office including (but not limited to) the risks of infection, bleeding, nonunion, malunion, injury to tendons and neurovascular structures, stiffness, chronic pain and the possible need for additional surgery. The patient expressed understanding and was in agreement to proceed. The operative site was confirmed and marked preoperatively and consents were signed. Description of Procedure: The patient was administered a regional nerve block by the anesthesia team then brought to the operating suite. General anesthesia was administered uneventfully. The patient was positioned supine with the operative limb on an arm board. All bony prominences were well padded. A tourniquet was placed on the left arm which was then prepped and draped in usual sterile fashion. Prophylactic IV antibiotics had been administered. A standard timeout was performed which confirmed the patient, the operative side, the site and the procedure to be performed. All team members were in agreement. The limb was exsanguinated with an Esmarch and the tourniquet was inflated. A standard volar FCR approach was utilized. The skin was sharply incised and superficial vessels were coagulated as needed with electrocautery. The FCR sheath was sharply incised and the tendon was mobilized. The median nerve was seen in the operative field in a more radial position than is usually encountered. The palmar cutaneous nerve branch was identified and a thenar branch was found crossing the surgical field. This was carefully mobilized proximally and distally and protected throughout the case. The floor of the sheath was released and blunt spreading dissection proceeded down to the pronator quadratus. This was incised on its radial border and elevated off the metaphysis ulnarly. The fracture site was identified. The fracture was manually reduced using a combination of axial traction, ulnar deviation and palmar translation. Intraoperative fluoroscopy was used to confirm acceptable reduction. A volar plate was selected, inserted and provisionally fixed in place with K- wires. The plate position was confirmed on orthogonal imaging. A cortical screw was drilled, measured and inserted into the oblong hole in the shaft. The provisional K-wires were removed to optimize the implant position on the bone and then reinserted to secure the plate distally. Satisfactory position of the plate was confirmed on AP & lateral views. The distal locking screws were drilled, measured and inserted. The K-wires were removed. Two additional cortical screws was drilled & inserted to secure the plate to the metaphysis. Final x-rays were obtained which showed good reduction of the fracture with improvement in radial height, inclination and volar tilt. A 20-degree inclined lateral view was obtained which confirmed extra-articular screw placement. The final construct was then ranged under live fluoroscopy -- no motion at the fracture site was appreciated. The tourniquet was released and good hemostasis was obtained with electrocautery. The wound was thoroughly irrigated and the incision closed with interrupted nylon sutures. Marcaine with epinephrine was injected into the surrounding tissues for postoperative pain control and hemostasis. A sterile dressing was applied followed by a volar plaster splint. All sponge and needle counts were correct at the end of the case. The patient tolerated the procedure well. Anesthesia was reversed uneventfully and the patient was taken to recovery in stable condition.
== END 2018-09-21 17:25 | disposition home or self-care (01) ==
LOC: OR 09:51
PROVIDERS: ATTEND Orthopaedic Surgery
DX: S52.552A Other extraarticular fracture of lower end of left radius, initial encounter for closed fracture (principal); W19.XXXA Unspecified fall, initial encounter; I10 Essential (primary) hypertension; E78.5 Hyperlipidemia, unspecified; F17.200 Nicotine dependence, unspecified, uncomplicated; J44.9 Chronic obstructive pulmonary disease, unspecified; F17.210 Nicotine dependence, cigarettes, uncomplicated; Z99.81 Dependence on supplemental oxygen; M19.91 Primary osteoarthritis, unspecified site; Z85.828 Personal history of other malignant neoplasm of skin; Z79.2 Long term (current) use of antibiotics; Z79.82 Long term (current) use of aspirin; Z79.52 Long term (current) use of systemic steroids; Z79.899 Other long term (current) drug therapy; Z88.1 Allergy status to other antibiotic agents
CPT/HCPCS: 73100; 25607; C1713; J2250; J2405; J2001; J3010; J1100; J2795; J2370; J0330; J2704; J0690

== ENCOUNTER → 2018-11-09 | Outpatient (CLI) | payer MEDICARE, BC ==
[2018-11-09 15:07] LABS: Blood Urea Nitrogen 19 mg/dL (7-17)
--- NOTE | 2018-11-09 16:09 | CT ---
EXAMINATION TYPE: CT chest w con DATE OF EXAM: 11/09/2018 COMPARISON: 12/31/2017 HISTORY: lung nodules, COPD CT DLP: 327 mGycm Automated exposure control for dose reduction was used. CONTRAST: CT scan of the chest is performed with IV Contrast, patient injected with 100 mL of Isovue 300. FINDINGS: LUNGS: Chronic interstitial changes with emphysematous changes throughout the lungs. 8 mm x 7 mm x 8. 9 mm soft tissue density subpleural region posterior basal segment right lower lobe (is stable). No a dditional nodules are identified. Pleural space: Unremarkable. No of pleural effusion. No pneumothora x. MEDIASTINUM: There are no greater than 1 cm hilar or mediastinal lymph nodes. No pericardial effusi on is seen. OTHER: Numerous hepatic hypodensities are compatible simple cysts the largest measuring 5 cm and 6 H [place] units. Incidental note is made of calcifications along the lower margin of the liver indete rminate nodule within the left kidney measuring less than 1 cm likely in the basis of a cyst. IMPRESSION: 1. Stable 8 x 7 x 8.9 mm lower lobe pulmonary nodule. Consider PET scan. 2. Diffuse COPD. 3. Hepatic cysts. 4. Probable cyst involving the upper pole the left kidney.
== END | disposition home or self-care (01) ==
LOC: RADCTMAIN 14:25
PROVIDERS: ATTEND Internal Medicine
DX: R91.1 Solitary pulmonary nodule (principal); J44.9 Chronic obstructive pulmonary disease, unspecified; Z88.2 Allergy status to sulfonamides
CPT/HCPCS: 82565; 84520; 71260; 36415; Q9967

== ENCOUNTER → 2019-07-09 | Outpatient (CLI) | payer MEDICARE, BC ==
--- NOTE | 2019-07-09 16:58 | CT ---
EXAMINATION TYPE: CT chest w con DATE OF EXAM: 07/09/2019 COMPARISON: 11/09/2018 and 12/31/2017 HISTORY: 73-year-old female Lung nodule TECHNIQUE: Contiguous axial scanning of the chest after the administration of 100 mL of Isovue 300. Coronal/sagittal reconstructions performed. CT DLP: 288mGycm. Automatic exposure control utilized for a dose reduction. FINDINGS: Heart normal size without pericardial effusion. Aorta normal caliber with a conventional arch vessel branching anatomy and mild atherosclerotic arch calcifications. No thoracic lymphadenopathy. Moderate to advanced upper to midlung predominant centrilobular emphysema with mild diffuse bronchial wall thickening. 8 mm posterior right lower lobe pulmonary nodule stable, previously measuring 9 mm. No new pulmonary nodules, consolidation, or pleural effusion. Hepatic cysts measuring up to 5.2 cm redemonstrated. Lateral upper pole left renal cortical cyst amber ures 1.1 cm. Bones: Slight levoconvex scoliosis with mild to moderate mid thoracic spine degenerative disc disease . IMPRESSION: 1. COPD with moderately advanced emphysema. 2. 8 mm right lower lobe pulmonary nodule is stable for 1.5 years. A benign etiology is suggested. An additional one-year follow-up recommended as a precautionary measure.
== END | disposition home or self-care (01) ==
LOC: RADCTMAIN 14:28
PROVIDERS: ATTEND Internal Medicine
DX: J43.9 Emphysema, unspecified (principal); R91.1 Solitary pulmonary nodule; R91.8 Other nonspecific abnormal finding of lung field; Z88.2 Allergy status to sulfonamides
CPT/HCPCS: 82565; 84520; 71260; 36415; Q9967

== ENCOUNTER 2020-08-16 12:42 | Emergency (ER) | payer MEDICARE, BC ==
[2020-08-16 12:50] VITALS: TEMP 98
[2020-08-16] MEDS ORDERED: IPRATROPIUM-ALBUTEROL 3 ML NEB INHALATION STA (12:53)
[2020-08-16] MEDS ORDERED: DEXAMETHASONE SOD PHOSPHATE 10 MG/ML 1 ML VIAL IV STA (12:53)
--- NOTE | 2020-08-16 12:57 | ED ---
General Adult HPI - General Chief complaint: Shortness of Breath Stated complaint: SOB Time Seen by Provider: 08/16/20 12:43 Source: patient, EMS Mode of arrival: EMS Limitations: no limitations - History of Present Illness Initial comments: Dictation was produced using [employer] dictation software. please excuse any grammatical, word or spelling errors. This patient was cared for during a federal and state declared state of emergency secondary to Covid 19 Chief Complaint: 74-year-old female past medical history of COPD presents with shortness of breath 1 day. History of Present Illness: Every 4-year-old female she has past medical history of COPD. 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 Since yesterday she is had development of slight shortness of breath. This morning she woke up with nonproductive cough and worsening dyspnea. Patient has oxygen supplement at home however she only uses as she feels she needs it. Typically with this happens she with herself on oxygen and feels immensely better. However this morning she had her oxygen on and wasn't feeling much improved. EMS was called patient brought to the emergency department. Patient was found have some wheezing. No interventions were provided by prehospital EMS. Patient states she feels slightly better after given her self breathing treatment. She denies any fever, chills or night sweats. She has no complaints. The ROS documented in this emergency department record has been reviewed and confirmed by me. Those systems with pertinent positive or negative responses have been documented in the HPI. All other systems are other negative and/or noncontributory. PHYSICAL EXAM: General Impression: Alert and oriented x3, not in acute distress HEENT: Normocephalic atraumatic, extra-ocular movements intact, pupils equal and reactive to light bilaterally, mucous membranes moist. Cardiovascular: Heart regular rate and rhythm Chest: Able to complete full sentences, no retractions, no tachypnea, diffuse and expiratory wheezing Abdomen: abdomen soft, non-tender, non-distended, no organomegaly Musculoskeletal: Pulses present and equal in all extremities, no peripheral edema Motor: no focal deficits noted Neurological: CN II-XII grossly intact, no focal motor or sensory deficits noted Skin: Intact with no visualized rashes Psych: Normal affect and mood ED course: 74-year-old female presents today with dyspnea. Clinical presentation consistent with COPD exacerbation. Vital signs upon arrival shows 9% on 3 L nasal cannula. Laboratory evaluation obtained. CBC and rectal. Cardiac panel is negative. Metabolic panel is negative. Current virus rapid test is negative. Chest x-ray shows no acute processes.Patient reevaluated bedside is found to be stable medical condition. Disposition options were discussed with her and she is agreeable for discharge. Patient is well-appearing not showing any signs of significant respiratory distress. She does appear to have all the medications and equipment at home. She is instructed to provide herself with a breathing treatment every 4 hours for the next 48-72 hours. She is also given prescription for prednisone. She is encouraged to follow up with her furniture delivery driver and primary care physician. Return parameters discussed. Patient agreeable to discharge. EKG interpretation: Ventricular rate 77, normal sinus rhythm,. Interval 124, QRS 90, QTC 469. No LA prolongation, no QTC prolongation, no ST or T-wave changes noted. EKG compared to 12/31/2017 showing no changes. Overall, this EKG is unremarkable - Related Data Home Medications Medication Instructions Recorded Confirmed Flurbiprofen [Ansaid] 100 mg PO HS 10/06/15 09/21/18 Fluticasone/Salmeterol [Advair 1 inhalation PO RT-BID 10/06/15 09/21/18 500-50 Diskus] Venlafaxine HCl ER [Effexor XR] 37.5 mg PO HS 10/06/15 09/21/18 Albuterol Inhaler (Mhu) [Ventolin 2 puff INHALATION RT-Q6H PRN 10/03/17 09/21/18 Hfa Inhaler (Mhu)] Albuterol Nebulized [Ventolin 2.5 mg INHALATION RT-Q6H PRN 10/03/17 09/21/18 Nebulized] Ascorbic Acid [Vitamin C] 250 mg PO DAILY 10/03/17 09/21/18 Cholecalciferol [Vitamin D3 (25 5,000 unit PO DAILY 10/03/17 09/21/18 Mcg = 1000 Iu)] Multivitamin/Iron/Folic Acid 1 tab PO DAILY 10/03/17 09/21/18 [Centrum Complete Multivit Tab] Tiotropium 18 Mcg/Puff [Spiriva] 1 cap INHALATION RT-DAILY 10/03/17 09/21/18 Previous Rx's Medication Instructions Recorded Aspirin EC [Ecotrin Low Dose] 81 mg PO DAILY #30 tablet. 10/04/17 Atorvastatin [Lipitor] 40 mg PO HS #30 tablet 10/04/17 Cefuroxime Axetil [Ceftin] 500 mg PO BID #10 tab 10/04/17 Metoprolol Tartrate [Lopressor] 12.5 mg PO BID #60 dose 10/04/17 Nicotine 14Mg/24Hr Patch [Habitrol] 1 patch TRANSDERM DAILY #30 patch 10/04/17 Famotidine [Pepcid] 20 mg PO BID #10 tablet 12/31/17 diphenhydrAMINE [Benadryl] 50 mg PO QID PRN #20 capsule 12/31/17 predniSONE 60 mg PO DAILY #30 tab 12/31/17 HYDROcodone/APAP 5-325MG [[place] 1 tab PO Q4HR PRN 3 Days #18 tab 09/21/18 5-325] predniSONE 50 mg PO DAILY 4 Days #4 tab 08/16/20 Allergies Allergy/AdvReac Type Severity Reaction Status Date / Time sulfamethoxazole Allergy Unknown Unknown Verified 08/16/20 12:51 [From Bactrim] trimethoprim [From Bactrim] Allergy Unknown Unknown Verified 08/16/20 12:51 Review of Systems ROS Statement: Those systems with pertinent positive or pertinent negative responses have been documented in the HPI. ROS Other: All systems not noted in ROS Statement are negative. Past Medical History Past Medical History: Cancer, COPD Additional Past Medical History / Comment(s): BASAL CELL CA, ARTHRITIS, OXYGEN AT 2-2.5 LITERS AT HS. History of Any Multi-Drug Resistant Organisms: None Reported Past Surgical History: Orthopedic Surgery Additional Past Surgical History / Comment(s): COLONOSCOPY'S, RETINAL TEAR LEFT EYE, CATARACT RIGHT EYE. Past Anesthesia/Blood Transfusion Reactions: No Reported Reaction Past Psychological History: Depression Smoking Status: Current every day smoker Past Alcohol Use History: Occasional Past Drug Use History: None Reported - Past Family History Mother Family Medical History: No Reported History General Exam Limitations: no limitations Course Vital Signs 08/16/20 08/16/20 08/16/20 12:46 13:23 13:39 Temperature 98 F Pulse Rate 99 103 H 107 H Respiratory 20 Rate Blood Pressure 139/81 O2 Sat by Pulse 99 Oximetry Medical Decision Making - Lab Data Result diagrams: 08/16/20 13:57 08/16/20 13:10 Lab Results 08/16/20 08/16/20 08/16/20 Range/Units 13:10 13:10 13:10 WBC (3.8-10.6) k/uL RBC (3.80-5.40) m/uL Hgb (11.4-16.0) gm/dL Hct (34.0-46.0) % MCV (80.0-100.0) fL MCH (25.0-35.0) pg MCHC (31.0-37.0) g/dL RDW (11.5-15.5) % Plt Count (150-450) k/uL MPV Neutrophils % % Lymphocytes % % Monocytes % % Eosinophils % % Basophils % % Neutrophils # (1.3-7.7) k/uL Lymphocytes # (1.0-4.8) k/uL Monocytes # (0-1.0) k/uL Eosinophils # (0-0.7) k/uL Basophils # (0-0.2) k/uL PT (9.0-12.0) sec INR (<1.2) APTT (22.0-30.0) sec Sodium 138 (137-145) mmol/L Potassium 4.1 (3.5-5.1) mmol/L Chloride 106 (98-107) mmol/L Carbon Dioxide 26 (22-30) mmol/L Anion Gap 6 mmol/L BUN 15 (7-17) mg/dL Creatinine 0.64 (0.52-1.04) mg/dL Est GFR (CKD-EPI)AfAm >90 (>60 ml/min/1.73 sqM) Est GFR (CKD-EPI)NonAf 89 (>60 ml/min/1.73 sqM) Glucose 101 H (74-99) mg/dL Calcium 9.1 (8.4-10.2) mg/dL Total Bilirubin 0.5 (0.2-1.3) mg/dL AST 34 (14-36) U/L ALT 23 (4-34) U/L Alkaline Phosphatase 74 (38-126) U/L Troponin I <0.012 (0.000-0.034) ng/mL NT-Pro-B Natriuret Pep pg/mL Total Protein 7.3 (6.3-8.2) g/dL Albumin 4.1 (3.5-5.0) g/dL Coronavirus (PCR) Not Detected (Not Detectd) 08/16/20 08/16/20 08/16/20 Range/Units 13:57 13:57 13:57 WBC 6.0 (3.8-10.6) k/uL RBC 4.69 (3.80-5.40) m/uL Hgb 14.6 (11.4-16.0) gm/dL Hct 43.9 (34.0-46.0) % MCV 93.5 (80.0-100.0) fL MCH 31.1 (25.0-35.0) pg MCHC 33.3 (31.0-37.0) g/dL RDW 13.5 (11.5-15.5) % Plt Count 206 (150-450) k/uL MPV 8.1 Neutrophils % 67 % Lymphocytes % 22 % Monocytes % 4 % Eosinophils % 4 % Basophils % 1 % Neutrophils # 4.0 (1.3-7.7) k/uL Lymphocytes # 1.3 (1.0-4.8) k/uL Monocytes # 0.3 (0-1.0) k/uL Eosinophils # 0.2 (0-0.7) k/uL Basophils # 0.1 (0-0.2) k/uL PT 9.9 (9.0-12.0) sec INR 1.0 (<1.2) APTT 24.9 (22.0-30.0) sec Sodium (137-145) mmol/L Potassium (3.5-5.1) mmol/L Chloride (98-107) mmol/L Carbon Dioxide (22-30) mmol/L Anion Gap mmol/L BUN (7-17) mg/dL Creatinine (0.52-1.04) mg/dL Est GFR (CKD-EPI)AfAm (>60 ml/min/1.73 sqM) Est GFR (CKD-EPI)NonAf (>60 ml/min/1.73 sqM) Glucose (74-99) mg/dL Calcium (8.4-10.2) mg/dL Total Bilirubin (0.2-1.3) mg/dL AST (14-36) U/L ALT (4-34) U/L Alkaline Phosphatase (38-126) U/L Troponin I (0.000-0.034) ng/mL NT-Pro-B Natriuret Pep 254 pg/mL Total Protein (6.3-8.2) g/dL Albumin (3.5-5.0) g/dL Coronavirus (PCR) (Not Detectd) Disposition Clinical Impression: COPD exacerbation Disposition: HOME SELF-CARE Condition: Fair Instructions (If sedation given, give patient instructions): COPD (Chronic Obstructive Pulmonary Disease) (ED) Prescriptions: predniSONE 50 mg PO DAILY 4 Days #4 tab Is patient prescribed a controlled substance at d/c from ED?: No Referrals: Jamie Brooks DO [Primary Care Provider] - 1-2 days Rocio Razo MD [STAFF PHYSICIAN] - 1-2 days Time of Disposition: 14:47
[2020-08-16 13:36] LABS: ALT 23 U/L (4-34); AST 34 U/L (14-36); African American GFR (CKD) >90 (>60 ml/min/1.73 sqM); Albumin 4.1 g/dL (3.5-5.0); Alkaline Phosphatase 74 U/L (38-126); Anion Gap 6 mmol/L; Blood Urea Nitrogen 15 mg/dL (7-17); Calcium 9.1 mg/dL (8.4-10.2); Carbon Dioxide 26 mmol/L (22-30); Chloride 106 mmol/L (98-107); Glucose 101 mg/dL (74-99); Non-African American GFR(CKD) 89 (>60 ml/min/1.73 sqM); Potassium 4.1 mmol/L (3.5-5.1); Sodium 138 mmol/L (137-145); Total Bilirubin 0.5 mg/dL (0.2-1.3); Total Protein 7.3 g/dL (6.3-8.2)
[2020-08-16 14:04] LABS: Basophils # (A) 0.1 k/uL (0-0.2); Basophils % (A) 1 %; Eosinophils # (A) 0.2 k/uL (0-0.7); Eosinophils % (A) 4 %; HCT 43.9 % (34.0-46.0); HGB 14.6 gm/dL (11.4-16.0); Lymphocytes # (A) 1.3 k/uL (1.0-4.8); Lymphocytes % (A) 22 %; MCH 31.1 pg (25.0-35.0); MCHC 33.3 g/dL (31.0-37.0); MCV 93.5 fL (80.0-100.0); Mean Platelet Volume 8.1; Monocytes # (A) 0.3 k/uL (0-1.0); Monocytes % (A) 4 %; Neutrophils % (A) 67 %; Platelet Count 206 k/uL (150-450); RBC 4.69 m/uL (3.80-5.40); RDW 13.5 % (11.5-15.5)
[2020-08-16 14:13] LABS: Partial Thromboplastin Time 24.9 sec (22.0-30.0); Prothrombin Time 9.9 sec (9.0-12.0)
--- NOTE | 2020-08-16 14:39 | XR ---
EXAMINATION TYPE: XR chest 2V DATE OF EXAM: 08/16/2020 COMPARISON: 09/20/2018 HISTORY: Short of breath TECHNIQUE: FINDINGS: There is pulmonary hyperinflation with flattening of the diaphragm. Heart size is normal. T here are no hilar masses. Mediastinum is normal. Bony thorax is intact. There are chest leads. IMPRESSION: COPD. No acute lung disease. No change.
[2020-08-16 15:14] VITALS: BP 114/69; PULSE 99; RESP 19
== END 2020-08-16 15:14 | disposition home or self-care (01) ==
LOC: EC 12:42
DX: J44.1 Chronic obstructive pulmonary disease with (acute) exacerbation (principal); M19.90 Unspecified osteoarthritis, unspecified site; F32.9 Major depressive disorder, single episode, unspecified; F17.200 Nicotine dependence, unspecified, uncomplicated; Z79.1 Long term (current) use of non-steroidal anti-inflammatories (NSAID); Z79.51 Long term (current) use of inhaled steroids; Z79.899 Other long term (current) drug therapy; Z88.2 Allergy status to sulfonamides; Z88.1 Allergy status to other antibiotic agents; Z85.828 Personal history of other malignant neoplasm of skin; Z20.828 Contact with and (suspected) exposure to other viral communicable diseases
CPT/HCPCS: 36415; 94640; 83880; 80053; 84484; 85025; 85610; 85730; 87635; 71046; 99285; 96374; J1100; 93005

== ENCOUNTER 2020-09-23 02:39 | Inpatient (IN) | payer BC, MEDICARE ==
[2020-09-23] MEDS ORDERED: SODIUM CHLORIDE 0.9% 1,000 ML IV STA ×3 (02:44→03:44)
[2020-09-23] MEDS ORDERED: LORazepam 2 MG/ML INJ IV STA (02:44)
[2020-09-23] MEDS ORDERED: ALBUTEROL NEBULIZED 2.5 MG/3 ML INHALATION STA (02:44)
[2020-09-23] MEDS ORDERED: AZITHROMYCIN 500 MG in SODIUM CHLORIDE 0.9% 250 ML IVPB STA (02:44)
[2020-09-23] MEDS ORDERED: IPRATROPIUM 0.5 MG/2.5 ML NEBU INHALATION STA (02:44)
[2020-09-23] MEDS ORDERED: methylPREDNISolone SOD SUCCI 125 MG/2 ML VIAL IV STA (02:44)
--- NOTE | 2020-09-23 02:45 | ED ---
SOB HPI - General Stated Complaint: KEL Time Seen by Provider: 09/23/20 02:44 Source: RN notes reviewed, old records reviewed Limitations: no limitations - History of Present Illness Initial Comments: This is a 74 year old female to the ER who complains of shortness of breath, patient with severe history of COPD and revent admission, no pain currentl. Patient is increasing weakness. Increasing shortness of breath. No recent travel history, patient does have inpatient hospitalization was in the past month. Shortness of breath his been increasing despite home treatment. MD Complaint: shortness of breath, cough -: days(s) Severity: severe Severity scale (1-10): 8 Quality: aching Consistency: constant Improves With: nothing Worsens With: nothing Known History Of: COPD Context: recent URI Associated Symptoms: chest pain, cough, sputum production, palpitations Treatments Prior to Arrival: none - Related Data Home Medications Medication Instructions Recorded Confirmed Flurbiprofen [Ansaid] 100 mg PO HS 10/06/15 09/21/18 Fluticasone/Salmeterol [Advair 1 inhalation PO RT-BID 10/06/15 09/21/18 500-50 Diskus] Venlafaxine HCl ER [Effexor XR] 37.5 mg PO HS 10/06/15 09/21/18 Albuterol Inhaler (Mhu) [Ventolin 2 puff INHALATION RT-Q6H PRN 10/03/17 09/21/18 Hfa Inhaler (Mhu)] Albuterol Nebulized [Ventolin 2.5 mg INHALATION RT-Q6H PRN 10/03/17 09/21/18 Nebulized] Ascorbic Acid [Vitamin C] 250 mg PO DAILY 10/03/17 09/21/18 Cholecalciferol [Vitamin D3 (25 5,000 unit PO DAILY 10/03/17 09/21/18 Mcg = 1000 Iu)] Multivitamin/Iron/Folic Acid 1 tab PO DAILY 10/03/17 09/21/18 [Centrum Complete Multivit Tab] Tiotropium 18 Mcg/Puff [Spiriva] 1 cap INHALATION RT-DAILY 10/03/17 09/21/18 Previous Rx's Medication Instructions Recorded Aspirin EC [Ecotrin Low Dose] 81 mg PO DAILY #30 tablet. 10/04/17 Atorvastatin [Lipitor] 40 mg PO HS #30 tablet 10/04/17 Cefuroxime Axetil [Ceftin] 500 mg PO BID #10 tab 10/04/17 Metoprolol Tartrate [Lopressor] 12.5 mg PO BID #60 dose 10/04/17 Nicotine 14Mg/24Hr Patch [Habitrol] 1 patch TRANSDERM DAILY #30 patch 10/04/17 Famotidine [Pepcid] 20 mg PO BID #10 tablet 12/31/17 diphenhydrAMINE [Benadryl] 50 mg PO QID PRN #20 capsule 12/31/17 predniSONE 60 mg PO DAILY #30 tab 12/31/17 HYDROcodone/APAP 5-325MG [[place] 1 tab PO Q4HR PRN 3 Days #18 tab 09/21/18 5-325] predniSONE 50 mg PO DAILY 4 Days #4 tab 08/16/20 Allergies Allergy/AdvReac Type Severity Reaction Status Date / Time sulfamethoxazole Allergy Unknown Unknown Verified 09/23/20 02:50 [From Bactrim] trimethoprim [From Bactrim] Allergy Unknown Unknown Verified 09/23/20 02:50 Review of Systems ROS Statement: Those systems with pertinent positive or pertinent negative responses have been documented in the HPI. ROS Other: All systems not noted in ROS Statement are negative. Past Medical History Past Medical History: Cancer, COPD Additional Past Medical History / Comment(s): BASAL CELL CA, ARTHRITIS, OXYGEN AT 2-2.5 LITERS AT HS. History of Any Multi-Drug Resistant Organisms: None Reported Past Surgical History: Orthopedic Surgery Additional Past Surgical History / Comment(s): COLONOSCOPY'S, RETINAL TEAR LEFT EYE, CATARACT RIGHT EYE. Past Anesthesia/Blood Transfusion Reactions: No Reported Reaction Past Psychological History: Depression Smoking Status: Current every day smoker Past Alcohol Use History: Occasional Past Drug Use History: None Reported - Past Family History Mother Family Medical History: No Reported History General Exam General appearance: alert, anxious, in distress, cachectic Head exam: Present: atraumatic, normocephalic, normal inspection Eye exam: Present: normal appearance, PERRL, EOMI. Absent: scleral icterus, conjunctival injection, periorbital swelling ENT exam: Present: normal exam, mucous membranes moist Neck exam: Present: normal inspection. Absent: tenderness, meningismus, lymphadenopathy Respiratory exam: Present: respiratory distress, wheezes, accessory muscle use, decreased breath sounds, prolonged expiratory. Absent: rales, rhonchi, stridor Cardiovascular Exam: Present: tachycardia, normal heart sounds. Absent: systolic murmur, diastolic murmur, rubs, gallop, clicks GI/Abdominal exam: Present: soft, normal bowel sounds. Absent: distended, tenderness, guarding, rebound, rigid Extremities exam: Present: normal inspection, full ROM, normal capillary refill. Absent: tenderness, pedal edema, joint swelling, calf tenderness Back exam: Present: normal inspection Neurological exam: Present: alert, oriented X3, CN II-XII intact Psychiatric exam: Present: normal affect, normal mood Skin exam: Present: warm, dry, intact, normal color. Absent: rash Course Vital Signs 09/23/20 09/23/20 09/23/20 02:40 02:51 03:36 Temperature 98.0 F Pulse Rate 112 H 100 106 H Respiratory 30 H Rate Blood Pressure 115/89 O2 Sat by Pulse 88 L Oximetry - Reevaluation(s) Reevaluation #1: 09/23/20 03:54 Medical record is reviewed Reevaluation #2: 09/23/20 03:54 Patient still feeling significantly short of breath fatigue from breathing so hard. Reevaluation #3: 09/23/20 03:54 Patient informed results questions are answered - Consultations Consultation #1: Spoke with agrees to admit this patient Medical Decision Making - Medical Decision Making 74 female DF for evaluation patient has severe COPD exacerbation with hypoxia, patient will be admitted for continued breathing treatment steroids and supportive care pulse oximetry monitor - Lab Data Result diagrams: 09/23/20 03:12 09/23/20 03:12 Lab Results 09/23/20 09/23/20 09/23/20 Range/Units 03:12 03:12 03:12 WBC 6.8 (3.8-10.6) k/uL RBC 4.66 (3.80-5.40) m/uL Hgb 13.8 (11.4-16.0) gm/dL Hct 43.6 (34.0-46.0) % MCV 93.5 (80.0-100.0) fL MCH 29.6 (25.0-35.0) pg MCHC 31.7 (31.0-37.0) g/dL RDW 14.0 (11.5-15.5) % Plt Count 184 (150-450) k/uL MPV 8.1 Neutrophils % 61 % Lymphocytes % 26 % Monocytes % 5 % Eosinophils % 6 % Basophils % 1 % Neutrophils # 4.1 (1.3-7.7) k/uL Lymphocytes # 1.7 (1.0-4.8) k/uL Monocytes # 0.3 (0-1.0) k/uL Eosinophils # 0.4 (0-0.7) k/uL Basophils # 0.1 (0-0.2) k/uL PT 10.3 (9.0-12.0) sec INR 1.0 (<1.2) APTT 24.4 (22.0-30.0) sec Sodium 139 (137-145) mmol/L Potassium 4.0 (3.5-5.1) mmol/L Chloride 106 (98-107) mmol/L Carbon Dioxide 28 (22-30) mmol/L Anion Gap 5 mmol/L BUN 18 H (7-17) mg/dL Creatinine 0.73 (0.52-1.04) mg/dL Est GFR (CKD-EPI)AfAm >90 (>60 ml/min/1.73 sqM) Est GFR (CKD-EPI)NonAf 82 (>60 ml/min/1.73 sqM) Glucose 96 (74-99) mg/dL Calcium 9.4 (8.4-10.2) mg/dL Magnesium 1.8 (1.6-2.3) mg/dL Total Bilirubin 0.4 (0.2-1.3) mg/dL AST 34 (14-36) U/L ALT 24 (4-34) U/L Alkaline Phosphatase 68 (38-126) U/L Lactate Dehydrogenase 453 (313-618) U/L Creatine Kinase 219 H (30-135) U/L Troponin I (0.000-0.034) ng/mL C-Reactive Protein <5.0 (<10.0) mg/L NT-Pro-B Natriuret Pep pg/mL Total Protein 6.9 (6.3-8.2) g/dL Albumin 4.1 (3.5-5.0) g/dL 09/23/20 09/23/20 Range/Units 03:12 03:12 WBC (3.8-10.6) k/uL RBC (3.80-5.40) m/uL Hgb (11.4-16.0) gm/dL Hct (34.0-46.0) % MCV (80.0-100.0) fL MCH (25.0-35.0) pg MCHC (31.0-37.0) g/dL RDW (11.5-15.5) % Plt Count (150-450) k/uL MPV Neutrophils % % Lymphocytes % % Monocytes % % Eosinophils % % Basophils % % Neutrophils # (1.3-7.7) k/uL Lymphocytes # (1.0-4.8) k/uL Monocytes # (0-1.0) k/uL Eosinophils # (0-0.7) k/uL Basophils # (0-0.2) k/uL PT (9.0-12.0) sec INR (<1.2) APTT (22.0-30.0) sec Sodium (137-145) mmol/L Potassium (3.5-5.1) mmol/L Chloride (98-107) mmol/L Carbon Dioxide (22-30) mmol/L Anion Gap mmol/L BUN (7-17) mg/dL Creatinine (0.52-1.04) mg/dL Est GFR (CKD-EPI)AfAm (>60 ml/min/1.73 sqM) Est GFR (CKD-EPI)NonAf (>60 ml/min/1.73 sqM) Glucose (74-99) mg/dL Calcium (8.4-10.2) mg/dL Magnesium (1.6-2.3) mg/dL Total Bilirubin (0.2-1.3) mg/dL AST (14-36) U/L ALT (4-34) U/L Alkaline Phosphatase (38-126) U/L Lactate Dehydrogenase (313-618) U/L Creatine Kinase (30-135) U/L Troponin I <0.012 (0.000-0.034) ng/mL C-Reactive Protein (<10.0) mg/L NT-Pro-B Natriuret Pep 241 pg/mL Total Protein (6.3-8.2) g/dL Albumin (3.5-5.0) g/dL - EKG Data -: EKG Interpreted by Me (EKG is sinus tach 102, [place] 132 QRS 98 QTc 471) - Radiology Data Radiology results: report reviewed (Chest x-rays negative for acute disease), image reviewed Critical Care Time Critical Care Time: Yes Total Critical Care Time: 31 Disposition Clinical Impression: Acute exacerbation of chronic obstructive pulmonary disease, Hypoxia Disposition: ADMITTED IP TO THIS [facility] Condition: Fair Is patient prescribed a controlled substance at d/c from ED?: No Referrals: Jamie Brooks DO [Primary Care Provider] - 1-2 days
[2020-09-23 03:28] LABS: Basophils # (A) 0.1 k/uL (0-0.2); Basophils % (A) 1 %; Eosinophils # (A) 0.4 k/uL (0-0.7); Eosinophils % (A) 6 %; HCT 43.6 % (34.0-46.0); HGB 13.8 gm/dL (11.4-16.0); Lymphocytes # (A) 1.7 k/uL (1.0-4.8); Lymphocytes % (A) 26 %; MCH 29.6 pg (25.0-35.0); MCHC 31.7 g/dL (31.0-37.0); MCV 93.5 fL (80.0-100.0); Mean Platelet Volume 8.1; Monocytes # (A) 0.3 k/uL (0-1.0); Monocytes % (A) 5 %; Neutrophils # (A) 4.1 k/uL (1.3-7.7); Neutrophils % (A) 61 %; Platelet Count 184 k/uL (150-450); RBC 4.66 m/uL (3.80-5.40); WBC 6.8 k/uL (3.8-10.6)
[2020-09-23 03:40] LABS: Partial Thromboplastin Time 24.4 sec (22.0-30.0); Prothrombin Time 10.3 sec (9.0-12.0)
[2020-09-23 03:43] LABS: ALT 24 U/L (4-34); AST 34 U/L (14-36); African American GFR (CKD) >90 (>60 ml/min/1.73 sqM); Albumin 4.1 g/dL (3.5-5.0); Alkaline Phosphatase 68 U/L (38-126); Anion Gap 5 mmol/L; Blood Urea Nitrogen 18 mg/dL (7-17); C Reactive Protein <5.0 mg/L (<10.0); Calcium 9.4 mg/dL (8.4-10.2); Carbon Dioxide 28 mmol/L (22-30); Chloride 106 mmol/L (98-107); Creatine Kinase 219 U/L (30-135); Glucose 96 mg/dL (74-99); LDH 453 U/L (313-618); Magnesium 1.8 mg/dL (1.6-2.3); Non-African American GFR(CKD) 82 (>60 ml/min/1.73 sqM); Sodium 139 mmol/L (137-145); Total Bilirubin 0.4 mg/dL (0.2-1.3); Total Protein 6.9 g/dL (6.3-8.2)
--- NOTE | 2020-09-23 03:59 | XR ---
EXAM: XR Chest, 1 View CLINICAL HISTORY: ITS.REASON XR Reason: sob TECHNIQUE: Frontal view of the chest. COMPARISON: 08/16/2020 FINDINGS: Lungs: No consolidation or mass. Pleural space: No acute findings Heart: No cardiomegaly. Bones/joints: No acute findings. IMPRESSION: No acute cardiopulmonary process.
[2020-09-23] MEDS: methylPREDNISolone SOD SUCCI 125 MG/2 ML VIAL IV SCH ×2 (05:22→12:45)
[2020-09-23] MEDS ORDERED: ALBUTEROL NEBULIZED 2.5 MG/3 ML INHALATION SCH (08:00)
[2020-09-23] MEDS: ENOXAPARIN 40 MG/0.4 ML SYRINGE SQ SCH (08:16)
[2020-09-23] MEDS: BUDESONIDE 1 MG/2 ML NEBU INHALATION SCH ×2 (11:21→20:04)
[2020-09-23] MEDS: IPRATROPIUM-ALBUTEROL 3 ML NEB INHALATION SCH ×4 (11:21→23:34)
[2020-09-23] MEDS: FORMOTEROL FUMARATE 20 MCG/2 ML NEBU INHALATION SCH ×2 (11:31→20:04)
[2020-09-23 13:10] VITALS: BMI 18.8
--- NOTE | 2020-09-23 15:41 | P.CNPUL ---
History of Present Illness Consult date: 09/23/20 Requesting physician: Malcom Lugo Reason for consult: dyspnea, cough, COPD, hypoxemia Chief complaint: Shortness of breath. History of present illness: 74-year-old female with a known history of COPD. She asked cc one of my partners in the office. She has stage III chronic obstructive pulmonary disease, with an FEV1 that is 36% of predicted. Unfortunately, the patient continues to smoke. The patient comes into the emergency room complaining of a couple days worth of increasing shortness of breath, tightness in the chest, chest congestion, cough, and some phlegm production. She's not producing much phlegm. She also has increasing weakness. She denies any fever or chills. She tried treating herself at home. She states that she has a nebulizer machine, and Advair at home. In addition, she has oxygen at home and she uses it "as needed". She was last seen by my partner in December 2019. As I mentioned above, unfortunately, she does continue to smoke. In addition to COPD, she has a history of skin cancer, chronic hypoxemic respiratory failure, arthritis, hyperlipidemia, hypertension, and gastroesophageal reflux disease. Review of Systems REVIEW OF SYSTEMS: CONSTITUTIONAL: Weakness. NEUROLOGIC: [ Negative.] HEENT: [ Negative.] CARDIAC: [Negative.] PULMONARY: Shortness of breath, chest tightness, wheezing, cough, phlegm production. GI: [Negative.] : [Negative.] RHEUMATOLOGIC: [ Negative.] IMMUNOLOGIC: [ Negative.] ENDOCRINE: [Negative. ] DERMATOLOGIC: [Negative.] Past Medical History Past Medical History: Cancer, COPD Additional Past Medical History / Comment(s): BASAL CELL CA, ARTHRITIS, OXYGEN AT 2-2.5 LITERS AT HS. History of Any Multi-Drug Resistant Organisms: None Reported Past Surgical History: Orthopedic Surgery Additional Past Surgical History / Comment(s): COLONOSCOPY'S, RETINAL TEAR LEFT EYE, CATARACT RIGHT EYE. Past Anesthesia/Blood Transfusion Reactions: No Reported Reaction Past Psychological History: Depression Smoking Status: Current every day smoker Past Alcohol Use History: Occasional Additional Past Alcohol Use History / Comment(s): 50 YRS. SMOKES 1/2 PPD Past Drug Use History: None Reported - Past Family History Mother Family Medical History: No Reported History Medications and Allergies Home Medications Medication Instructions Recorded Confirmed Type Tiotropium 18 Mcg/Puff [Spiriva] 1 cap INHALATION RT-DAILY 10/03/17 09/23/20 History Albuterol Inhaler [Ventolin Hfa 1 - 2 puff INHALATION RT-Q4H PRN 09/23/20 09/23/20 History Inhaler] Fluticasone Propion/Salmeterol 1 puff INHALATION RT-BID 09/23/20 09/23/20 History [Wixela 500-50 Inhub] Ipratropium-Albuterol Nebulize 3 ml INHALATION RT-Q6H PRN 09/23/20 09/23/20 History [Duoneb 0.5 mg-3 mg/3 ml Soln] Venlafaxine HCl [Effexor XR] 75 mg PO DAILY 09/23/20 09/23/20 History diphenhydrAMINE [Benadryl] 50 mg PO Q4H PRN 09/23/20 09/23/20 History guaiFENesin [Mucinex] 600 mg PO Q12H PRN 09/23/20 09/23/20 History Allergies Allergy/AdvReac Type Severity Reaction Status Date / Time sulfamethoxazole Allergy Unknown Unknown Verified 09/23/20 02:50 [From Bactrim] trimethoprim [From Bactrim] Allergy Unknown Unknown Verified 09/23/20 02:50 Physical Exam Osteopathic Statement: *. No significant issues noted on an osteopathic structural exam other than those noted in the History and Physical/Consult. Vitals: Vital Signs Temp Pulse Pulse Resp BP BP Pulse Ox 09/23/20 14:00 98.0 F 115 H 19 115/75 90 L 09/23/20 11:33 104 H 09/23/20 11:22 104 H 09/23/20 08:27 108 H 09/23/20 08:09 120 H 09/23/20 08:00 98.6 F 113 H 21 131/77 94 L 09/23/20 05:00 98.1 F 108 H 19 135/78 94 L 09/23/20 04:00 100 18 132/90 100 09/23/20 03:36 106 H 09/23/20 02:51 100 09/23/20 02:40 98.0 F 112 H 30 H 115/89 88 L Intake and Output 09/23/20 09/23/20 09/23/20 06:59 14:59 22:59 Intake Total 130 Balance 130 Intake: Intake, IV Titration 130 Amount Sodium Chloride 0.9% 1, 130 000 ml @ 130 mls/hr IV . Q7H42M STA Rx#:[id number] Other: Voiding Method Diaper Weight 49.895 kg 49.895 kg No acute distress, oriented 3. Currently, not on any supplemental oxygen. HEENT examination is grossly unremarkable. Mucous membranes are moist. No oral lesions. Neck supple. Full range of motion. No adenopathy thyromegaly or neck vein distention. Cardiovascular examination reveals regular rhythm rate. S1-S2 normal. No S3 or S4. No discernible murmur noted. Heart sounds are distant and heart rate is 1 04 bpm. Lungs reveal severely diminished bilateral breath sounds. There are expiratory wheezes and rhonchi. No crackles. Breath sounds are equal bilaterally. There is prolongation. Abdomen soft bowel sounds are heard. No masses or tenderness. Extremities are intact. No cyanosis clubbing or edema. Skin is without rash or lesion. Neurologic examination is brief but nonfocal. Results - Laboratory Findings CBC and BMP: 09/23/20 03:12 09/23/20 03:12 PT/INR, D-dimer PT 10.3 sec (9.0-12.0) 09/23/20 03:12 INR 1.0 (<1.2) 09/23/20 03:12 Abnormal lab findings: Abnormal Labs 09/23/20 03:12 BUN 18 H Creatine Kinase 219 H Assessment and Plan Assessment: Acute exacerbation of COPD, without significant pneumonia and/or purulent tracheobronchitis. History of ongoing tobacco use with nicotine addiction. Chronic hypoxemic respiratory failure, with home O2. History of hyperlipidemia. History of hypertension. History of basal cell skin cancer. History of arthritis. Plan: Plan dated 09/23/2020. The patient will be placed on albuterol sulfate and ipratropium bromide updrafts, 4 times a day and when necessary. In addition, we start the patient on Pulmicort, 1 mg, mixed with fomoterol, 20 g, to be used twice a day. In addition, the patient is placed on corticosteroids in the form of Solu-Medrol, 60 mg every 6 hours. The patient should receive a nicotine patch is not ready done. The patient likely doesn't need antibiotics or if antibiotics are adequate, short course of oral antibiotics would be appropriate. The patient is counseled about smoking cessation. We'll make sure the patient is seen by my partner post discharge. Time with Patient: Greater than 30
[2020-09-23 17:00] LABS: Glucose,Whole Blood 142 mg/dL (75-99)
[2020-09-23] MEDS: INSULIN ASPART (NovoLOG) 100 UNIT/ML VIAL SQ SCH ×2 (17:19→20:57)
[2020-09-23] MEDS: methylPREDNISolone SOD SUCCI 40 MG/ML 1 ML VIAL IV SCH ×2 (17:19→23:32)
[2020-09-23] MEDS: VENLAFAXINE HCL ER 75 MG CAP PO SCH (18:06)
[2020-09-23] MEDS ORDERED: BUDESONIDE 1 MG/2 ML NEBU INHALATION SCH (20:00)
[2020-09-23] MEDS ORDERED: FORMOTEROL FUMARATE 20 MCG/2 ML NEBU INHALATION SCH (20:00)
--- NOTE | 2020-09-23 20:39 | P.HPIM ---
History of Present Illness H&P Date: 09/23/20 Chief Complaint: Short of breath History of presenting complaint: This is a pleasant 74-year-old patient of Dr. Brooks. Chronic stable medical conditions include arthritis, home oxygen 2-2.5 L, basal cell cancer, depression, patient continues to smoke. Patient's chronically short of breath but more shows short of breath and loss to 3 days. Some wheezing. Dry cough. No fever no chills. No edema. Appetite is fair. No perspiration. Admitted with COPD exacerbation. Review of systems: GEN.: Tired EYES: None HEENT: None NECK: None RESPIRATORY: As above CARDIOVASCULAR: None GASTROINTESTINAL: None GENITOURINARY: Urinary incontinence MUSCULOSKELETAL: None LYMPHATICS: None HEMATOLOGICAL: None PSYCHIATRY: None NEUROLOGICAL: None Past medical history to include: Basal cell cancer, COPD, osteoarthritis, home oxygen 2-2.5 L, depression Social history: . Smokes half a pack a day for close to 50 years. Alcohol occasional. Family history: Reviewed, noncontributory to presentation Physical examination: VITAL SIGNS: 98, 112, 30, 115/89, 88% room air GENERAL: BMI 18.9, sitting at edge of bed, slightly short of breath. EYES: Pupils equal. Conjunctiva normal. HEENT: External appearance of nose and ears normal, oral cavity grossly normal. NECK: JVD not raised; masses not palpable. HEART: First and second heart sounds are normal; no edema. LUNGS: Respiratory rate increased, decreased breaths on some wheezing. ABDOMEN: Soft, nontender, liver spleen not palpable, no masses palpable. PSYCH: Alert and oriented x3; mood and affect normal MUSCULAR skeletal: Evidence of OA in the hands. NEUROLOGICAL: Cranial nerves grossly intact; no facial asymmetry, power and sensation grossly intact. LYMPHATICS: No lymph nodes palpable in the axilla and neck INVESTIGATIONS, reviewed in the clinical context: White count 6.8 hemoglobin 13.8 platelets 184 potassium 4 creatinine 0.73 Troponin I less than 0.012 CRP. Less than 5 proBNP 241 EKG tracing personally reviewed by me-normal sinus rhythm, nonspecific ST segment changes Chest x-ray film personally reviewed by al-xoolvecr-dh obvious infiltrates Assessment: -Acute COPD exacerbation in a current smoker -Chronic nicotine dependence patient cigarette smoker -Chronic hypoxic respiratory failure from lying COPD patient uses 2-2.5 oxygen at home -Depression otherwise specified - Plan: She is put on nebulized overnight as every 4 hours, long-acting inhaled and agonist and inhaled steroids. IV Solu-Medrol. Home medications resumed. Lovenox for DVT prophylaxis. Nicotine patch. Pulmonary consulted. Care discussed with the patient Past Medical History Past Medical History: Cancer, COPD Additional Past Medical History / Comment(s): BASAL CELL CA, ARTHRITIS, OXYGEN AT 2-2.5 LITERS AT HS. History of Any Multi-Drug Resistant Organisms: None Reported Past Surgical History: Orthopedic Surgery Additional Past Surgical History / Comment(s): COLONOSCOPY'S, RETINAL TEAR LEFT EYE, CATARACT RIGHT EYE. Past Anesthesia/Blood Transfusion Reactions: No Reported Reaction Past Psychological History: Depression Smoking Status: Current every day smoker Past Alcohol Use History: Occasional Additional Past Alcohol Use History / Comment(s): 50 YRS. SMOKES 1/2 PPD Past Drug Use History: None Reported - Past Family History Mother Family Medical History: No Reported History Medications and Allergies Home Medications Medication Instructions Recorded Confirmed Type Tiotropium 18 Mcg/Puff [Spiriva] 1 cap INHALATION RT-DAILY 10/03/17 09/23/20 History Albuterol Inhaler [Ventolin Hfa 1 - 2 puff INHALATION RT-Q4H PRN 09/23/20 09/23/20 History Inhaler] Fluticasone Propion/Salmeterol 1 puff INHALATION RT-BID 09/23/20 09/23/20 History [Wixela 500-50 Inhub] Ipratropium-Albuterol Nebulize 3 ml INHALATION RT-Q6H PRN 09/23/20 09/23/20 History [Duoneb 0.5 mg-3 mg/3 ml Soln] Venlafaxine HCl [Effexor XR] 75 mg PO DAILY 09/23/20 09/23/20 History diphenhydrAMINE [Benadryl] 50 mg PO Q4H PRN 09/23/20 09/23/20 History guaiFENesin [Mucinex] 600 mg PO Q12H PRN 09/23/20 09/23/20 History Allergies Allergy/AdvReac Type Severity Reaction Status Date / Time sulfamethoxazole Allergy Unknown Unknown Verified 09/23/20 02:50 [From Bactrim] trimethoprim [From Bactrim] Allergy Unknown Unknown Verified 09/23/20 02:50 Physical Exam Vitals: Vital Signs Temp Pulse Pulse Resp BP BP Pulse Ox 09/23/20 08:27 108 H 09/23/20 08:09 120 H 09/23/20 08:00 98.6 F 113 H 21 131/77 94 L 09/23/20 05:00 98.1 F 108 H 19 135/78 94 L 09/23/20 04:00 100 18 132/90 100 09/23/20 03:36 106 H 09/23/20 02:51 100 09/23/20 02:40 98.0 F 112 H 30 H 115/89 88 L Intake and Output 09/22/20 09/23/20 09/23/20 22:59 06:59 14:59 Intake Total 130 Balance 130 Intake: Intake, IV Titration 130 Amount Sodium Chloride 0.9% 1, 130 000 ml @ 130 mls/hr IV . Q7H42M STA Rx#:[id number] Other: Voiding Method Diaper Weight 49.895 kg Results CBC & Chem 7: 09/23/20 03:12 09/23/20 03:12 Labs: Abnormal Lab Results - Last 24 Hours (Table) 09/23/20 Range/Units 03:12 BUN 18 H (7-17) mg/dL Creatine Kinase 219 H (30-135) U/L Thrombosis Risk Factor Assmnt - Choose All That Apply Each Risk Factor Represents 2 Points: Age 61-74 years Thrombosis Risk Factor Assessment Total Risk Factor Score: 2 Thrombosis Risk Factor Assessment Level: Low Risk
[2020-09-23 20:51] LABS: Glucose,Whole Blood 142 mg/dL (75-99)
[2020-09-23] MEDS: AMOXIC-POT CLAV 875-125MG 1 EACH TAB PO SCH (20:59)
[2020-09-23] MEDS: HALOPERIDOL LACTATE 5 MG/ML 1 ML VIAL IM PRN ×2 (22:18→22:35)
[2020-09-24] MEDS ORDERED: HALOPERIDOL LACTATE 5 MG/ML 1 ML VIAL IM PRN (00:35)
[2020-09-24] MEDS: HALOPERIDOL LACTATE 5 MG/ML 1 ML VIAL IM PRN (00:55)
[2020-09-24] MEDS ORDERED: NICOTINE 21MG/24HR PATCH TRANSDERM STA (01:00)
[2020-09-24] MEDS: IPRATROPIUM-ALBUTEROL 3 ML NEB INHALATION SCH ×5 (03:19→19:40)
[2020-09-24 07:26] LABS: Glucose,Whole Blood 123 mg/dL (75-99)
[2020-09-24] MEDS: INSULIN ASPART (NovoLOG) 100 UNIT/ML VIAL SQ SCH ×4 (07:27→21:15)
[2020-09-24] MEDS: methylPREDNISolone SOD SUCCI 40 MG/ML 1 ML VIAL IV SCH (07:44)
[2020-09-24] MEDS: ENOXAPARIN 40 MG/0.4 ML SYRINGE SQ SCH (07:44)
[2020-09-24] MEDS: AMOXIC-POT CLAV 875-125MG 1 EACH TAB PO SCH ×2 (07:44→22:33)
[2020-09-24] MEDS: VENLAFAXINE HCL ER 75 MG CAP PO SCH (07:44)
[2020-09-24] MEDS: FORMOTEROL FUMARATE 20 MCG/2 ML NEBU INHALATION SCH ×2 (07:55→19:40)
[2020-09-24] MEDS: BUDESONIDE 1 MG/2 ML NEBU INHALATION SCH ×2 (07:55→19:40)
[2020-09-24 11:38] LABS: Glucose,Whole Blood 123 mg/dL (75-99)
[2020-09-24] MEDS ORDERED: predniSONE 20 MG TAB PO SCH (13:00)
--- NOTE | 2020-09-24 14:09 | P.PN ---
Subjective Progress Note Date: 09/24/20 Principal diagnosis: COPD exacerbation 74-year-old female with a known history of COPD. She asked cc one of my partners in the office. She has stage III chronic obstructive pulmonary disease, with an FEV1 that is 36% of predicted. Unfortunately, the patient continues to smoke. The patient comes into the emergency room complaining of a couple days worth of increasing shortness of breath, tightness in the chest, chest congestion, cough, and some phlegm production. She's not producing much phlegm. She also has increasing weakness. She denies any fever or chills. She tried treating herself at home. She states that she has a nebulizer machine, and Advair at home. In addition, she has oxygen at home and she uses it "as needed". She was last seen by my partner in December 2019. As I mentioned above, unfortunately, she does continue to smoke. In addition to COPD, she has a history of skin cancer, chronic hypoxemic respiratory failure, arthritis, hyperlipidemia, hypertension, and gastroesophageal reflux disease. On 09/24/2020 patient seen in follow-up on medical floor still short of breath with any exertion, but sounds better today's exam, lung sounds are diminished, no wheezing, vital signs have been stable, currently on 4 L of oxygen pulse ox of 93%, tachycardic, with the heart rate in the 120s, she is afebrile, remains on nebulized bronchodilators, empiric antibiotics in the form of Augmentin, and IV steroids. Chest x-ray did not show any acute cardiopulmonary process, patient is being treated for acute exacerbation of COPD. Objective - Vital Signs Vital signs: Vital Signs Temp 97.7 F 09/24/20 08:00 Pulse 116 H 09/24/20 11:16 Resp 24 09/24/20 08:00 BP 164/83 09/24/20 08:00 Pulse Ox 93 L 09/24/20 08:00 Intake & Output 09/23/20 09/24/20 09/24/20 18:59 06:59 18:59 Intake Total 540 540 Balance 540 540 Weight 49.895 kg Intake: Oral 540 540 Other: Voiding Method Diaper Diaper # Voids 3 1 # Bowel Movements 1 - Exam GENERAL EXAM: Alert, very pleasant, 74-year-old white female, on 4 L oxygen with pulse ox of 93% comfortable in no apparent distress. HEAD: Normocephalic/atraumatic. EYES: Normal reaction of pupils, equal size. Conjunctiva pink, sclera white. NOSE: Clear with pink turbinates. THROAT: No erythema or exudates. NECK: No masses, no JVD, no thyroid enlargement, no adenopathy. CHEST: No chest wall deformity. Symmetrical expansion. LUNGS: Equal air entry with diminished sounds with minimal wheezing CVS: Regular rate and rhythm, normal S1 and S2, no gallops, no murmurs, no rubs ABDOMEN: Soft, nontender. No hepatosplenomegaly, normal bowel sounds, no guar ding or rigidity. EXTREMITIES: No clubbing, no edema, no cyanosis, 2+ pulses and upper and lower extremities. MUSCULOSKELETAL: Muscle strength and tone normal. SPINE: No scoliosis or deformity SKIN: No rashes CENTRAL NERVOUS SYSTEM: Alert and oriented -3. No focal deficits, tone is normal in all 4 extremities. PSYCHIATRIC: Alert and oriented -3. Appropriate affect. Intact judgment and insight. - Labs CBC & Chem 7: 09/23/20 03:12 09/23/20 03:12 Labs: Abnormal Lab Results - Last 24 Hours (Table) 09/23/20 09/23/20 09/24/20 Range/Units 16:59 20:50 07:18 POC Glucose (mg/dL) 142 H 142 H 123 H (75-99) mg/dL 09/24/20 Range/Units 11:27 POC Glucose (mg/dL) 123 H (75-99) mg/dL Assessment and Plan Plan: Assessment: #1. Acute exacerbation of COPD, without significant pneumonia and/or purulent tracheobronchitis. #2. History of ongoing tobacco use with nicotine addiction. #3. Chronic hypoxemic respiratory failure, with home O2. #4. History of hyperlipidemia. #5. History of hypertension. #6. History of basal cell skin cancer. #7. History of arthritis. Plan: Continue nebulized bronchodilators, empiric antibiotics, continue steroids, starla ent is improving, breathing easier, still has exertional dyspnea, not quite ready for discharge, need another 24 hours of inpatient treatment, continue to follow I performed a history & physical examination of the patient and discussed their management with my nurse practitioner, Nery Dunaway. I reviewed the nurse practitioner's note and agree with the documented findings and plan of care. Irma ng sounds are positive for diminished sounds with minimal wheezing. The findings and the impression was discussed with the patient. I attest to the documentation by the nurse practitioner. Time with Patient: Less than 30
[2020-09-24 17:09] LABS: Glucose,Whole Blood 133 mg/dL (75-99)
--- NOTE | 2020-09-24 20:52 | P.PN ---
Progress Note - Text Progress Note Date: 09/24/20 Chief Complaint: Short of breath History of presenting complaint: This is a pleasant 74-year-old patient of Dr. Brooks. Chronic stable medical conditions include arthritis, home oxygen 2-2.5 L, basal cell cancer, depression, patient continues to smoke. Patient's chronically short of breath but more shows short of breath and loss to 3 days. Some wheezing. Dry cough. No fever no chills. No edema. Appetite is fair. No perspiration. Admitted with COPD exacerbation. Started IV Solu-Medrol, bronchodilators. Today-last night patient became delirious. Had to be given Haldol. This afternoon. More restful. Breathing better. Oral intake about 50%. Review of systems: Was done for constitutional, cardiovascular, GI, pulmonary. relevant finding as above Active Medications Albuterol/Ipratropium (Ipratropium-Albuterol 3 Ml Neb) 3 ml INHALATION RT-Q4H PRN PRN Reason: Shortness Of Breath Or Wheezing Albuterol/Ipratropium (Ipratropium-Albuterol 3 Ml Neb) 3 ml INHALATION RT-Q4H [facility] Last Admin: 09/24/20 19:40 Dose: 3 ml Documented by: Amoxicillin/Clavulanate Potassium (Amoxic-Pot Clav 875-125mg 1 Each Tab) 1 each PO Q12HR [facility] Last Admin: 09/24/20 07:44 Dose: 1 each Documented by: Budesonide (Budesonide 1 Mg/2 Ml Nebu) 1 mg INHALATION RT-BID [facility] Last Admin: 09/24/20 19:40 Dose: 1 mg Documented by: Enoxaparin Sodium (Enoxaparin 40 Mg/0.4 Ml Syringe) 40 mg SQ DAILY [facility] Last Admin: 09/24/20 07:44 Dose: 40 mg Documented by: Formoterol Fumarate (Formoterol Fumarate 20 Mcg/2 Ml Nebu) 20 mcg INHALATION RT-BID [facility] Last Admin: 09/24/20 19:40 Dose: 20 mcg Documented by: Haloperidol Lactate (Haloperidol Lactate 5 Mg/Ml 1 Ml Vial) 5 mg IM ONCE PRN PRN Reason: Agitation or Acute Psychosis Last Admin: 09/23/20 22:18 Dose: 5 mg Documented by: Haloperidol Lactate (Haloperidol Lactate 5 Mg/Ml 1 Ml Vial) 5 mg IM ONCE PRN PRN Reason: Agitation or Acute Psychosis Last Admin: 09/24/20 01:03 Dose: 5 mg Documented by: Insulin Aspart (Insulin Aspart (Novolog) 100 Unit/Ml Vial) 0 unit SQ [facility]; Protocol Last Admin: 09/24/20 17:28 Dose: Not Given Documented by: Prednisone (Prednisone 20 Mg Tab) 40 mg PO DAILY [facility] Last Admin: 09/24/20 13:16 Dose: 40 mg Documented by: Venlafaxine HCl (Venlafaxine Hcl Er 75 Mg Cap) 75 mg PO DAILY [facility] Last Admin: 09/24/20 07:44 Dose: 75 mg Documented by: Past medical history to include: Basal cell cancer, COPD, osteoarthritis, home oxygen 2-2.5 L, depression Social history: . Smokes half a pack a day for close to 50 years. Alcohol occasional. Family history: Reviewed, noncontributory to presentation Physical examination: VITAL SIGNS: 97.6, 114, 22, 164/83, 93% on 4 L GENERAL: Laying in bed, tired EYES: Pupils equal. Conjunctiva normal. HEENT: External appearance of nose and ears normal, oral cavity grossly normal. NECK: JVD not raised; masses not palpable. HEART: First and second heart sounds are normal; no edema. LUNGS: Respiratory rate increased, decreased breaths-improve air entry. ABDOMEN: Soft, nontender, liver spleen not palpable, no masses palpable. PSYCH: Answering questions, tired MUSCULAR skeletal: Evidence of OA in the hands. INVESTIGATIONS, reviewed in the clinical context: White count 6.8 hemoglobin 13.8 platelets 184 potassium 4 creatinine 0.73 Troponin I less than 0.012 CRP. Less than 5 proBNP 241 EKG tracing personally reviewed by me-normal sinus rhythm, nonspecific ST segment changes Chest x-ray film personally reviewed by vm-xbedzirs-vy obvious infiltrates Assessment: -Acute COPD exacerbation in a current smoker-improving -Chronic nicotine dependence patient cigarette smoker -Chronic hypoxic respiratory failure from lying COPD patient uses 2-2.5 oxygen at home -Depression otherwise specified -Acute delirium could be from steroids - Plan: Decreased DuoNeb to 4 times a day. DC IV Solu-Medrol. Decreased to prednisone 40 mg today and decreased to 30 mg tomorrow.
[2020-09-24 21:13] LABS: Glucose,Whole Blood 119 mg/dL (75-99)
[2020-09-25] MEDS: IPRATROPIUM-ALBUTEROL 3 ML NEB INHALATION PRN ×2 (00:04→03:55)
[2020-09-25 06:55] LABS: Glucose,Whole Blood 101 mg/dL (75-99)
[2020-09-25] MEDS: INSULIN ASPART (NovoLOG) 100 UNIT/ML VIAL SQ SCH ×2 (07:18→12:37)
[2020-09-25] MEDS: IPRATROPIUM-ALBUTEROL 3 ML NEB INHALATION SCH ×3 (07:40→15:48)
[2020-09-25] MEDS: BUDESONIDE 1 MG/2 ML NEBU INHALATION SCH (07:40)
[2020-09-25] MEDS: FORMOTEROL FUMARATE 20 MCG/2 ML NEBU INHALATION SCH (07:40)
[2020-09-25] MEDS ORDERED: predniSONE 20 MG TAB PO SCH (09:00)
[2020-09-25 09:58] VITALS: BP 153/86; RESP 20; TEMP 98
[2020-09-25] MEDS: VENLAFAXINE HCL ER 75 MG CAP PO SCH (09:58)
[2020-09-25] MEDS: AMOXIC-POT CLAV 875-125MG 1 EACH TAB PO SCH (09:59)
[2020-09-25] MEDS: ENOXAPARIN 40 MG/0.4 ML SYRINGE SQ SCH (10:00)
[2020-09-25 11:28] LABS: Glucose,Whole Blood 100 mg/dL (75-99)
[2020-09-25 11:32] VITALS: PULSE 94
--- NOTE | 2020-09-25 14:23 | P.PN ---
Subjective Progress Note Date: 09/25/20 Principal diagnosis: COPD exacerbation 74-year-old female with a known history of COPD. She asked cc one of my partners in the office. She has stage III chronic obstructive pulmonary disease, with an FEV1 that is 36% of predicted. Unfortunately, the patient continues to smoke. The patient comes into the emergency room complaining of a couple days worth of increasing shortness of breath, tightness in the chest, chest congestion, cough, and some phlegm production. She's not producing much phlegm. She also has increasing weakness. She denies any fever or chills. She tried treating herself at home. She states that she has a nebulizer machine, and Advair at home. In addition, she has oxygen at home and she uses it "as needed". She was last seen by my partner in December 2019. As I mentioned above, unfortunately, she does continue to smoke. In addition to COPD, she has a history of skin cancer, chronic hypoxemic respiratory failure, arthritis, hyperlipidemia, hypertension, and gastroesophageal reflux disease. On 09/24/2020 patient seen in follow-up on medical floor still short of breath with any exertion, but sounds better today's exam, lung sounds are diminished, no wheezing, vital signs have been stable, currently on 4 L of oxygen pulse ox of 93%, tachycardic, with the heart rate in the 120s, she is afebrile, remains on nebulized bronchodilators, empiric antibiotics in the form of Augmentin, and IV steroids. Chest x-ray did not show any acute cardiopulmonary process, patient is being treated for acute exacerbation of COPD. On 09/25/2020 patient seen in follow-up on medical floor, she is doing much better, breathing easier, she's had no acute events overnight, on 4 L of oxygen pulse ox 96%, she's had no fever or chills, any chest x-rays or labs. Patient has been transitioned to oral prednisone, she remains on bronchodilators, she is on empiric antibiotics, she's had no acute events overnight. Breathing easier. Objective - Vital Signs Vital signs: Vital Signs Temp 98.0 F 09/25/20 08:00 Pulse 94 09/25/20 11:31 Resp 20 09/25/20 08:00 BP 153/86 09/25/20 08:00 Pulse Ox 96 09/25/20 08:00 Intake & Output 09/24/20 09/25/20 09/25/20 18:59 06:59 18:59 Intake Total 300 Balance 300 Intake: Oral 300 Other: Voiding Method Diaper Toilet # Voids 1 2 # Bowel Movements 1 - Exam GENERAL EXAM: Alert, very pleasant, 74-year-old white female, on 4 L oxygen with pulse ox of 93% comfortable in no apparent distress. HEAD: Normocephalic/atraumatic. EYES: Normal reaction of pupils, equal size. Conjunctiva pink, sclera white. NOSE: Clear with pink turbinates. THROAT: No erythema or exudates. NECK: No masses, no JVD, no thyroid enlargement, no adenopathy. CHEST: No chest wall deformity. Symmetrical expansion. LUNGS: Equal air entry with diminished sounds with minimal wheezing CVS: Regular rate and rhythm, normal S1 and S2, no gallops, no murmurs, no rubs ABDOMEN: Soft, nontender. No hepatosplenomegaly, normal bowel sounds, no guarding or rigidity. EXTREMITIES: No clubbing, no edema, no cyanosis, 2+ pulses and upper and lower extremities. MUSCULOSKELETAL: Muscle strength and tone normal. SPINE: No scoliosis or deformity SKIN: No rashes CENTRAL NERVOUS SYSTEM: Alert and oriented -3. No focal deficits, tone is normal in all 4 extremities. PSYCHIATRIC: Alert and oriented -3. Appropriate affect. Intact judgment and insight. - Labs CBC & Chem 7: 09/23/20 03:12 09/23/20 03:12 Labs: Abnormal Lab Results - Last 24 Hours (Table) 09/24/20 09/24/20 09/25/20 Range/Units 17:08 21:11 06:50 POC Glucose (mg/dL) 133 H 119 H 101 H (75-99) mg/dL 09/25/20 Range/Units 11:25 POC Glucose (mg/dL) 100 H (75-99) mg/dL Assessment and Plan Plan: Assessment: #1. Acute exacerbation of COPD, without significant pneumonia and/or purulent tracheobronchitis. #2. History of ongoing tobacco use with nicotine addiction. #3. Chronic hypoxemic respiratory failure, with home O2. #4. History of hyperlipidemia. #5. History of hypertension. #6. History of basal cell skin cancer. #7. History of arthritis. Plan: Patient is improving, no worsening dyspnea, no fever or chills, from pulmonary perspective she can be considered for discharge home today on outpatient course of oral antibiotics, prednisone taper, and a large bronchodilators, she can follow up with Dr. Epperson in the office in 2 weeks I performed a history & physical examination of the patient and discussed their management with my nurse practitioner, Nery Dunaway. I reviewed the nurse practitioner's note and agree with the documented findings and plan of care. Lung sounds are positive for diminished sounds with minimal wheezing. The findings and the impression was discussed with the patient. I attest to the documentation by the nurse practitioner. Time with Patient: Less than 30
--- NOTE | 2020-09-25 15:12 | P.DS ---
Providers Date of admission: 09/23/20 03:53 Expected date of discharge: 09/25/20 Attending physician: Malcom Lugo Consults: 09/23/20 03:52 Consult Physician Routine Consulting Provider: Ck Patrick Consult Reason/Comments: copd Do you want consulting provider notified?: Yes Primary care physician: Jamie Brooks [facility] Course: Final diagnosis -Acute COPD exacerbation in a current smoker-improving -Chronic nicotine dependence patient cigarette smoker -Chronic hypoxic respiratory failure from COPD patient uses 2-2.5 oxygen at home -Depression -Acute delirium could be from steroids, improved Discharge disposition Patient is being discharged in a stable condition with guarded prognosis to home. Patient will follow-up with Dr. Brooks in the outpatient setting upon discharge. Patient also instructed to follow-up with Dr. Razo are as discussed and scheduled. Patient will continue on prednisone taper along with oral antibiotics in the form of Augmentin twice daily for the next 5 days to complete the course. Total time taken is greater than 35 minutes. Hospital course This is a 74-year-old female who was recently admitted with shortness of breath and acute COPD exacerbation and was being closely monitored. She was started on IV steroids along with bronchodilators and antibiotics. Patient was seen and evaluated by pulmonary recommending outpatient follow-up in 2 weeks as scheduled. Patient also to continue with bronchodilators along with the prednisone taper and Augmentin twice daily for the next 5 days to complete the course. Patient had some brief episodes of acute delirium at night. Patient continued to remove her oxygen and was found multiple times in the room without any oxygen on and needs continuous redirection on keeping it on. Patient does continue to smoke and has no desire to quit at this point. Instructed once again to refrain from any tobacco use and smoking. Patient is asking to go home today. Currently no reports of chest pain, worsening shortness of breath, or palpitations. Patient is afebrile. No reports of nausea or vomiting and patient is tolerating diet. Patient will be discharged home today. Guarded prognosis On exam vital signs are stable. Temp is 98.0F, pulse is 95, respirations are 20, blood pressure is 153/86, oxygen saturation is 96% on 4 L via nasal cannula. She does have O2 at home as well. Cardio S1, S2 are muffled. Respiratory system shows diminished breath sounds at the bases with no wheezing or rhonchi noted. Abdomen is soft, obese, and nontender. Nervous system shows no focal deficits. Please refer to medication reconciliation sheet for a list of medications. Patient Condition at Discharge: Fair Plan - Discharge Summary Discharge Rx Participant: No New Discharge Prescriptions: New Amoxic-Pot Clav 875-125Mg [Augmentin 875-125] 1 each PO Q12HR 5 Days #10 tab predniSONE 10 mg PO DIRECTED #30 tab Continue Tiotropium 18 Mcg/Puff [Spiriva] 1 cap INHALATION RT-DAILY Albuterol Inhaler [Ventolin Hfa Inhaler] 1 - 2 puff INHALATION RT-Q4H PRN PRN Reason: Shortness Of Breath guaiFENesin [Mucinex] 600 mg PO Q12H PRN PRN Reason: Cough diphenhydrAMINE [Benadryl] 50 mg PO Q4H PRN PRN Reason: Allergy Symptoms Fluticasone Propion/Salmeterol [Wixela 500-50 Inhub] 1 puff INHALATION RT-BID Venlafaxine HCl [Effexor XR] 75 mg PO DAILY Ipratropium-Albuterol Nebulize [Duoneb 0.5 mg-3 mg/3 ml Soln] 3 ml INHALATION RT-Q6H PRN PRN Reason: Shortness Of Breath Discharge Medication List Tiotropium 18 Mcg/Puff [Spiriva] 1 cap INHALATION RT-DAILY 10/03/17 [History] Albuterol Inhaler [Ventolin Hfa Inhaler] 1 - 2 puff INHALATION RT-Q4H PRN 09/23/20 [History] Fluticasone Propion/Salmeterol [Wixela 500-50 Inhub] 1 puff INHALATION RT-BID 09/23/20 [History] Ipratropium-Albuterol Nebulize [Duoneb 0.5 mg-3 mg/3 ml Soln] 3 ml INHALATION RT-Q6H PRN 09/23/20 [History] Venlafaxine HCl [Effexor XR] 75 mg PO DAILY 09/23/20 [History] diphenhydrAMINE [Benadryl] 50 mg PO Q4H PRN 09/23/20 [History] guaiFENesin [Mucinex] 600 mg PO Q12H PRN 01/13/21 [History] Amoxic-Pot Clav 875-125Mg [Augmentin 875-125] 1 each PO Q12HR 5 Days #10 tab 09/25/20 [Rx] predniSONE 10 mg PO DIRECTED #30 tab 09/25/20 [Rx] Follow up Appointment(s)/Referral(s): Rocio Razo MD [STAFF PHYSICIAN] - 11/03/20 9:00 am Jamie Brooks DO [Primary Care Provider] - 09/28/20 2:00 pm Patient Instructions/Handouts: COPD (Chronic Obstructive Pulmonary Disease) (DC), Hypoxia (GEN) Activity/Diet/Wound Care/Special Instructions: Activity Limited until follow-up Follow-up with primary care provider upon discharge Follow-up with pulmonary in 1-2 weeks Continue with antibiotics for the next 5 days to complete the course Continue with prednisone taper Continue current diet Discharge Disposition: HOME SELF-CARE
== END 2020-09-25 17:22 | disposition home or self-care (01) | DRG 191 ==
LOC: EC 02:39 → 4SSUR 03:53
PROVIDERS: ADMIT Hospitalist; ATTEND Hospitalist
DX: J44.1 Chronic obstructive pulmonary disease with (acute) exacerbation (principal); J96.11 Chronic respiratory failure with hypoxia; F05 Delirium due to known physiological condition; M19.90 Unspecified osteoarthritis, unspecified site; H33.312 Horseshoe tear of retina without detachment, left eye; H26.9 Unspecified cataract; F17.210 Nicotine dependence, cigarettes, uncomplicated; I10 Essential (primary) hypertension; F32.9 Major depressive disorder, single episode, unspecified; E78.5 Hyperlipidemia, unspecified; K21.9 Gastro-esophageal reflux disease without esophagitis; T38.0X5A Adverse effect of glucocorticoids and synthetic analogues, initial encounter; R00.2 Palpitations; Y92.230 Patient room in hospital as the place of occurrence of the external cause; Z99.81 Dependence on supplemental oxygen; Z79.899 Other long term (current) drug therapy; Z79.82 Long term (current) use of aspirin; Z79.52 Long term (current) use of systemic steroids; Z85.828 Personal history of other malignant neoplasm of skin; Z88.2 Allergy status to sulfonamides
CPT/HCPCS: 36415; 71045; 80053; 82550; 83615; 83735; 83880; 84484; 85025; 85610; 85730; 86140; 93005; 94640; 94760; 96361; 96365; 96375; 99291

== ENCOUNTER 2020-09-26 01:44 | Inpatient (IN) | payer BC, MEDICARE ==
[2020-09-26] MEDS ORDERED: ALBUTEROL NEBULIZED 2.5 MG/3 ML INHALATION STA (02:07)
[2020-09-26] MEDS ORDERED: IPRATROPIUM 0.5 MG/2.5 ML NEBU INHALATION STA (02:07)
[2020-09-26] MEDS ORDERED: SODIUM CHLORIDE 0.9% 1,000 ML IV STA (02:07)
[2020-09-26] MEDS ORDERED: methylPREDNISolone SOD SUCCI 125 MG/2 ML VIAL IV STA (02:07)
--- NOTE | 2020-09-26 02:09 | ED ---
SOB HPI - General Chief Complaint: Shortness of Breath Stated Complaint: SOB Time Seen by Provider: 09/26/20 01:45 Source: patient, EMS Mode of arrival: EMS Limitations: no limitations - Related Data Home Medications Medication Instructions Recorded Confirmed Tiotropium 18 Mcg/Puff [Spiriva] 1 cap INHALATION RT-DAILY 10/03/17 09/23/20 Albuterol Inhaler [Ventolin Hfa 1 - 2 puff INHALATION RT-Q4H PRN 09/23/20 09/23/20 Inhaler] Fluticasone Propion/Salmeterol 1 puff INHALATION RT-BID 09/23/20 09/23/20 [Wixela 500-50 Inhub] Ipratropium-Albuterol Nebulize 3 ml INHALATION RT-Q6H PRN 09/23/20 09/23/20 [Duoneb 0.5 mg-3 mg/3 ml Soln] Venlafaxine HCl [Effexor XR] 75 mg PO DAILY 09/23/20 09/23/20 diphenhydrAMINE [Benadryl] 50 mg PO Q4H PRN 09/23/20 09/23/20 guaiFENesin [Mucinex] 600 mg PO Q12H PRN 09/23/20 09/23/20 Previous Rx's Medication Instructions Recorded Amoxic-Pot Clav 875-125Mg 1 each PO Q12HR 5 Days #10 tab 09/25/20 [Augmentin 875-125] predniSONE 10 mg PO DIRECTED #30 tab 09/25/20 Allergies Allergy/AdvReac Type Severity Reaction Status Date / Time sulfamethoxazole Allergy Unknown Unknown Verified 09/23/20 02:50 [From Bactrim] trimethoprim [From Bactrim] Allergy Unknown Unknown Verified 09/23/20 02:50 Review of Systems ROS Statement: Those systems with pertinent positive or pertinent negative responses have been documented in the HPI. ROS Other: All systems not noted in ROS Statement are negative. Past Medical History Past Medical History: Cancer, COPD Additional Past Medical History / Comment(s): BASAL CELL CA, ARTHRITIS, OXYGEN AT 2-2.5 LITERS AT HS. History of Any Multi-Drug Resistant Organisms: None Reported Past Surgical History: Orthopedic Surgery Additional Past Surgical History / Comment(s): COLONOSCOPY'S, RETINAL TEAR LEFT EYE, CATARACT RIGHT EYE. Past Anesthesia/Blood Transfusion Reactions: No Reported Reaction Past Psychological History: No Psychological Hx Reported, Depression Smoking Status: Current every day smoker Past Alcohol Use History: Occasional Past Drug Use History: None Reported - Past Family History Mother Family Medical History: No Reported History General Exam Limitations: no limitations Course Vital Signs 09/26/20 09/26/20 01:46 01:51 Temperature 97.7 F Pulse Rate 122 H Respiratory 20 20 Rate Blood Pressure 177/115 O2 Sat by Pulse 98 Oximetry Disposition Referrals: Jamie Brooks DO [Primary Care Provider] - 1-2 days
[2020-09-26] MEDS ORDERED: MORPHINE SULFATE 4 MG/ML SYRINGE IVP PRN (02:13)
[2020-09-26] MEDS ORDERED: MORPHINE SULFATE 4 MG/ML SYRINGE IVP STA (02:13)
--- NOTE | 2020-09-26 02:14 | ED ---
SOB HPI - General Chief Complaint: Shortness of Breath Stated Complaint: SOB Time Seen by Provider: 09/26/20 01:45 Source: patient, EMS, RN notes reviewed, old records reviewed Mode of arrival: EMS Limitations: no limitations - History of Present Illness Initial Comments: This is a 74-year-old female DF for evaluation she presents today for evaluation of severe shortness of breath. She admits recent hospitalization and discharge today and her symptoms S and worse tonight concern by EMS was for a bad oxygen connection or tubing but patient with significant hypoxic on arrival in the 60s per EMS. Patient did improve with supplemental O2 and brought DF. Patient is currently resting comfortably remains persistent tachycardic and short of breath given continues. She will here in the ER patient has no chest pain. No fevers. Increased cough MD Complaint: shortness of breath, cough -: hour(s) Severity: severe Severity scale (1-10): 10 Consistency: constant Improves With: nothing Worsens With: nothing Known History Of: COPD Context: recent URI Associated Symptoms: cough, sputum production, palpitations Treatments Prior to Arrival: oxygen - Related Data Home Medications Medication Instructions Recorded Confirmed Tiotropium 18 Mcg/Puff [Spiriva] 1 cap INHALATION RT-DAILY 10/03/17 09/26/20 Albuterol Inhaler [Ventolin Hfa 1 - 2 puff INHALATION RT-Q4H PRN 09/23/20 09/26/20 Inhaler] Fluticasone Propion/Salmeterol 1 puff INHALATION RT-BID 09/23/20 09/26/20 [Wixela 500-50 Inhub] Ipratropium-Albuterol Nebulize 3 ml INHALATION RT-Q6H PRN 09/23/20 09/26/20 [Duoneb 0.5 mg-3 mg/3 ml Soln] Venlafaxine HCl [Effexor XR] 75 mg PO DAILY 09/23/20 09/26/20 diphenhydrAMINE [Benadryl] 50 mg PO Q4H PRN 09/23/20 09/26/20 guaiFENesin [Mucinex] 600 mg PO Q12H PRN 09/23/20 09/26/20 predniSONE See Taper PO DAILY 09/26/20 09/26/20 Previous Rx's Medication Instructions Recorded Amoxic-Pot Clav 875-125Mg 1 each PO Q12HR 5 Days #10 tab 09/25/20 [Augmentin 875-125] Allergies Allergy/AdvReac Type Severity Reaction Status Date / Time sulfamethoxazole Allergy Unknown Unknown Verified 09/26/20 08:33 [From Bactrim] trimethoprim [From Bactrim] Allergy Unknown Unknown Verified 09/26/20 08:33 Review of Systems ROS Statement: Those systems with pertinent positive or pertinent negative responses have been documented in the HPI. ROS Other: All systems not noted in ROS Statement are negative. Past Medical History Past Medical History: Cancer, COPD Additional Past Medical History / Comment(s): BASAL CELL CA, ARTHRITIS, OXYGEN AT 2-2.5 LITERS AT HS. History of Any Multi-Drug Resistant Organisms: None Reported Past Surgical History: Orthopedic Surgery Additional Past Surgical History / Comment(s): COLONOSCOPY'S, RETINAL TEAR LEFT EYE, CATARACT RIGHT EYE. Past Anesthesia/Blood Transfusion Reactions: No Reported Reaction Past Psychological History: No Psychological Hx Reported, Depression Smoking Status: Current every day smoker Past Alcohol Use History: Occasional Past Drug Use History: None Reported - Past Family History Mother Family Medical History: No Reported History General Exam Limitations: no limitations General appearance: alert, anxious, in distress Head exam: Present: atraumatic, normocephalic, normal inspection Eye exam: Present: normal appearance, PERRL, EOMI. Absent: scleral icterus, conjunctival injection, periorbital swelling ENT exam: Present: normal exam, mucous membranes moist Neck exam: Present: normal inspection. Absent: tenderness, meningismus, l ymphadenopathy Respiratory exam: Present: normal lung sounds bilaterally. Absent: respiratory distress, wheezes, rales, rhonchi, stridor Cardiovascular Exam: Present: normal rhythm, tachycardia, normal heart sounds. Absent: systolic murmur, diastolic murmur, rubs, gallop, clicks GI/Abdominal exam: Present: soft, normal bowel sounds. Absent: distended, tenderness, guarding, rebound, rigid Extremities exam: Present: normal inspection, full ROM, normal capillary refill. Absent: tenderness, pedal edema, joint swelling, calf tenderness Back exam: Present: normal inspection Neurological exam: Present: alert, oriented X3, CN II-XII intact Psychiatric exam: Present: normal affect, normal mood Skin exam: Present: warm, dry, intact, normal color. Absent: rash Course Vital Signs 09/26/20 09/26/20 09/26/20 01:46 01:51 02:24 Temperature 97.7 F Pulse Rate 122 H 112 H Respiratory 20 20 Rate Blood Pressure 177/115 O2 Sat by Pulse 98 Oximetry 09/26/20 09/26/20 02:30 02:53 Temperature Pulse Rate 112 H 117 H Respiratory 20 Rate Blood Pressure 141/98 O2 Sat by Pulse 98 Oximetry - Reevaluation(s) Reevaluation #1: medical record is reviewed Prior hospitalization is been reviewed Patient has persistent shortness of breath and tachycardia Patient is informed of results and questions are answered Medical Decision Making - Medical Decision Making Review female DF for evaluation of severe shortness of breath to be probably pulse ox, monitor O2 tubing at home versus just a continuous and worsening COPD exacerbation. Patient was significantly hypoxic during transport and on EMS arrival at the house. That is improved currently patient is tachycardic and short of breath - Lab Data Result diagrams: 09/26/20 02:11 09/26/20 02:11 Lab Results 09/26/20 09/26/20 09/26/20 Range/Units 02:11 02:11 02:11 WBC 14.2 H (3.8-10.6) k/uL RBC 4.98 (3.80-5.40) m/uL Hgb 14.9 (11.4-16.0) gm/dL Hct 46.9 H (34.0-46.0) % MCV 94.2 (80.0-100.0) fL MCH 29.9 (25.0-35.0) pg MCHC 31.7 (31.0-37.0) g/dL RDW 14.1 (11.5-15.5) % Plt Count 195 (150-450) k/uL MPV 8.6 Neutrophils % 69 % Lymphocytes % 22 % Monocytes % 6 % Eosinophils % 0 % Basophils % 0 % Neutrophils # 9.9 H (1.3-7.7) k/uL Lymphocytes # 3.2 (1.0-4.8) k/uL Monocytes # 0.9 (0-1.0) k/uL Eosinophils # 0.1 (0-0.7) k/uL Basophils # 0.0 (0-0.2) k/uL PT 10.7 (9.0-12.0) sec INR 1.0 (<1.2) APTT 21.4 L (22.0-30.0) sec Sodium 136 L (137-145) mmol/L Potassium 4.1 (3.5-5.1) mmol/L Chloride 98 (98-107) mmol/L Carbon Dioxide 28 (22-30) mmol/L Anion Gap 10 mmol/L BUN 19 H (7-17) mg/dL Creatinine 0.73 (0.52-1.04) mg/dL Est GFR (CKD-EPI)AfAm >90 (>60 ml/min/1.73 sqM) Est GFR (CKD-EPI)NonAf 82 (>60 ml/min/1.73 sqM) Glucose 163 H (74-99) mg/dL Plasma Lactic Acid Roldan (0.7-2.0) mmol/L Calcium 9.5 (8.4-10.2) mg/dL Magnesium 2.0 (1.6-2.3) mg/dL Total Bilirubin 0.6 (0.2-1.3) mg/dL AST 53 H (14-36) U/L ALT 42 H (4-34) U/L Alkaline Phosphatase 64 (38-126) U/L Creatine Kinase 214 H (30-135) U/L Troponin I (0.000-0.034) ng/mL NT-Pro-B Natriuret Pep pg/mL Total Protein 7.6 (6.3-8.2) g/dL Albumin 4.5 (3.5-5.0) g/dL 09/26/20 09/26/20 09/26/20 Range/Units 02:11 02:11 02:11 WBC (3.8-10.6) k/uL RBC (3.80-5.40) m/uL Hgb (11.4-16.0) gm/dL Hct (34.0-46.0) % MCV (80.0-100.0) fL MCH (25.0-35.0) pg MCHC (31.0-37.0) g/dL RDW (11.5-15.5) % Plt Count (150-450) k/uL MPV Neutrophils % % Lymphocytes % % Monocytes % % Eosinophils % % Basophils % % Neutrophils # (1.3-7.7) k/uL Lymphocytes # (1.0-4.8) k/uL Monocytes # (0-1.0) k/uL Eosinophils # (0-0.7) k/uL Basophils # (0-0.2) k/uL PT (9.0-12.0) sec INR (<1.2) APTT (22.0-30.0) sec Sodium (137-145) mmol/L Potassium (3.5-5.1) mmol/L Chloride (98-107) mmol/L Carbon Dioxide (22-30) mmol/L Anion Gap mmol/L BUN (7-17) mg/dL Creatinine (0.52-1.04) mg/dL Est GFR (CKD-EPI)AfAm (>60 ml/min/1.73 sqM) Est GFR (CKD-EPI)NonAf (>60 ml/min/1.73 sqM) Glucose (74-99) mg/dL Plasma Lactic Acid Roldan 3.9 H* (0.7-2.0) mmol/L Calcium (8.4-10.2) mg/dL Magnesium (1.6-2.3) mg/dL Total Bilirubin (0.2-1.3) mg/dL AST (14-36) U/L ALT (4-34) U/L Alkaline Phosphatase (38-126) U/L Creatine Kinase (30-135) U/L Troponin I 0.012 (0.000-0.034) ng/mL NT-Pro-B Natriuret Pep 1030 pg/mL Total Protein (6.3-8.2) g/dL Albumin (3.5-5.0) g/dL - EKG Data -: EKG Interpreted by Me (EKG is sinus tachycardia 110 AK 160 QRS 90 QTC 47) - Radiology Data Radiology results: report reviewed (Chest x-rays negative for acute disease), image reviewed Critical Care Time Critical Care Time: Yes Total Critical Care Time: 31 Disposition Clinical Impression: Acute exacerbation of chronic obstructive pulmonary disease, Hypoxia Disposition: ADMITTED IP TO THIS [facility] Condition: Serious Is patient prescribed a controlled substance at d/c from ED?: No
[2020-09-26] MEDS ORDERED: ALBUTEROL NEB (CONC) 2.5 MG/0.5 ML INHALATION STA (02:18)
[2020-09-26 02:20] LABS: Basophils % (A) 0 %; Eosinophils # (A) 0.1 k/uL (0-0.7); Eosinophils % (A) 0 %; HCT 46.9 % (34.0-46.0); HGB 14.9 gm/dL (11.4-16.0); Lymphocytes # (A) 3.2 k/uL (1.0-4.8); Lymphocytes % (A) 22 %; MCH 29.9 pg (25.0-35.0); MCHC 31.7 g/dL (31.0-37.0); MCV 94.2 fL (80.0-100.0); Mean Platelet Volume 8.6; Monocytes # (A) 0.9 k/uL (0-1.0); Monocytes % (A) 6 %; Neutrophils # (A) 9.9 k/uL (1.3-7.7); Neutrophils % (A) 69 %; Platelet Count 195 k/uL (150-450); RBC 4.98 m/uL (3.80-5.40); RDW 14.1 % (11.5-15.5); WBC 14.2 k/uL (3.8-10.6)
[2020-09-26 02:30] LABS: ALT 42 U/L (4-34); AST 53 U/L (14-36); African American GFR (CKD) >90 (>60 ml/min/1.73 sqM); Albumin 4.5 g/dL (3.5-5.0); Alkaline Phosphatase 64 U/L (38-126); Anion Gap 10 mmol/L; Blood Urea Nitrogen 19 mg/dL (7-17); Calcium 9.5 mg/dL (8.4-10.2); Carbon Dioxide 28 mmol/L (22-30); Chloride 98 mmol/L (98-107); Creatine Kinase 214 U/L (30-135); Glucose 163 mg/dL (74-99); Non-African American GFR(CKD) 82 (>60 ml/min/1.73 sqM); Potassium 4.1 mmol/L (3.5-5.1); Sodium 136 mmol/L (137-145); Total Bilirubin 0.6 mg/dL (0.2-1.3); Total Protein 7.6 g/dL (6.3-8.2)
[2020-09-26 02:38] LABS: Prothrombin Time 10.7 sec (9.0-12.0)
[2020-09-26 02:40] LABS: Partial Thromboplastin Time 21.4 sec (22.0-30.0)
--- NOTE | 2020-09-26 02:54 | XR ---
EXAM: XR Chest, 1 View CLINICAL HISTORY: Shortness of breath. TECHNIQUE: Frontal view of the chest. COMPARISON: September 23, 2020 FINDINGS: Lungs: COPD. The lungs appear clear of acute findings. Pleural space: Unremarkable. No pneumothorax or pleural fluid. Heart: Unremarkable. No cardiomegaly. Mediastinum: Unremarkable. Bones/joints: No acute findings. IMPRESSION: No acute findings in the chest. COPD.
[2020-09-26] MEDS ORDERED: methylPREDNISolone SOD SUCCI 125 MG/2 ML VIAL IV SCH (06:00)
[2020-09-26] MEDS ORDERED: IPRATROPIUM-ALBUTEROL 3 ML NEB INHALATION SCH (08:00)
[2020-09-26] MEDS ORDERED: guaiFENesin 600 MG TABLET.ER PO PRN (09:55)
[2020-09-26] MEDS ORDERED: IPRATROPIUM-ALBUTEROL 3 ML NEB INHALATION PRN (10:48)
--- NOTE | 2020-09-26 11:12 | P.HPIM ---
History of Present Illness Patient is 74-year-old female was discharged yesterday after she was treated for COPD patient usually uses 2.5 L of oxygen. Patient went home started her feeling short of breath came back again. Patient doesn't smoke. Although she denied smoking yesterday. Patient denied any fever chills chest x-ray did not show any pneumonia patient was started back on IV steroids inhalational treatments. He was comparing of cough without sputum production. Review of Systems REVIEW OF SYSTEMS: CONSTITUTIONAL: No fever, no malaise, no fatigue. HEENT: No recent visual problems or hearing problems. Denied any sore throat. CARDIOVASCULAR: No chest pain, orthopnea, PND, no palpitations, no syncope. PULMONARY: no hemoptysis. GASTROINTESTINAL: No diarrhea, no nausea, no vomiting, no abdominal pain. NEUROLOGICAL: No headaches, no weakness, no numbness. HEMATOLOGICAL: Denies any bleeding or petechiae. GENITOURINARY: Denies any burning micturition, frequency, or urgency. MUSCULOSKELETAL/RHEUMATOLOGICAL: Denies any joint pain, swelling, or any muscle pain. ENDOCRINE: Denies any polyuria or polydipsia. The rest of the 14-point review of systems is negative. . Past Medical History Past Medical History: Cancer, COPD Additional Past Medical History / Comment(s): BASAL CELL CA, ARTHRITIS, OXYGEN AT 2-2.5 LITERS AT HS. History of Any Multi-Drug Resistant Organisms: None Reported Past Surgical History: Orthopedic Surgery Additional Past Surgical History / Comment(s): COLONOSCOPY'S, RETINAL TEAR LEFT EYE, CATARACT RIGHT EYE. Past Anesthesia/Blood Transfusion Reactions: No Reported Reaction Past Psychological History: No Psychological Hx Reported, Depression Smoking Status: Current every day smoker Past Alcohol Use History: Occasional Additional Past Alcohol Use History / Comment(s): 50 YRS. SMOKES 1/2 PPD Past Drug Use History: None Reported - Past Family History Mother Family Medical History: No Reported History Medications and Allergies Home Medications Medication Instructions Recorded Confirmed Type Tiotropium 18 Mcg/Puff [Spiriva] 1 cap INHALATION RT-DAILY 10/03/17 09/26/20 H istory Albuterol Inhaler [Ventolin Hfa 1 - 2 puff INHALATION RT-Q4H PRN 09/23/20 09/26/20 History Inhaler] Fluticasone Propion/Salmeterol 1 puff INHALATION RT-BID 09/23/20 09/26/20 History [Wixela 500-50 Inhub] Ipratropium-Albuterol Nebulize 3 ml INHALATION RT-Q6H PRN 09/23/20 09/26/20 History [Duoneb 0.5 mg-3 mg/3 ml Soln] Venlafaxine HCl [Effexor XR] 75 mg PO DAILY 09/23/20 09/26/20 History diphenhydrAMINE [Benadryl] 50 mg PO Q4H PRN 09/23/20 09/26/20 History guaiFENesin [Mucinex] 600 mg PO Q12H PRN 09/23/20 09/26/20 History Amoxic-Pot Clav 875-125Mg 1 each PO Q12HR 5 Days #10 tab 09/25/20 09/26/20 Rx [Augmentin 875-125] predniSONE See Taper PO DAILY 09/26/20 09/26/20 History Allergies Allergy/AdvReac Type Severity Reaction Status Date / Time sulfamethoxazole Allergy Unknown Unknown Verified 09/26/20 08:33 [From Bactrim] trimethoprim [From Bactrim] Allergy Unknown Unknown Verified 09/26/20 08:33 Physical Exam Vitals: Vital Signs Temp Pulse Pulse Resp BP BP Pulse Ox 09/26/20 08:03 120 H 22 09/26/20 07:58 98.4 F 102 H 17 149/86 91 L 09/26/20 07:55 120 H 22 09/26/20 03:27 98.2 F 120 H 159/93 92 L 09/26/20 02:53 117 H 20 141/98 98 09/26/20 02:30 112 H 09/26/20 02:24 112 H 09/26/20 01:51 20 09/26/20 01:46 97.7 F 122 H 20 177/115 98 Intake and Output 09/25/20 09/26/20 09/26/20 22:59 06:59 14:59 Other: # Voids 1 Weight 49.895 kg PHYSICAL EXAMINATION: GENERAL: The patient is alert and oriented x3, not in any acute distress. Thin built female. HEENT: Pupils are round and equally reacting to light. EOMI. No scleral icterus. No conjunctival pallor. Normocephalic, atraumatic. No pharyngeal erythema. No thyromegaly. CARDIOVASCULAR: S1 and S2 present. No murmurs, rubs, or gallops. PULMONARY: Decreased air entry with expiratory wheezing on exam ABDOMEN: Soft, nontender, nondistended, normoactive bowel sounds. No palpable organomegaly. MUSCULOSKELETAL: No joint swelling or deformity. EXTREMITIES: No cyanosis, clubbing, or pedal edema. NEUROLOGICAL: Gross neurological examination did not reveal any focal deficits. SKIN: No rashes Results CBC & Chem 7: 09/26/20 02:11 09/26/20 02:11 Labs: Abnormal Lab Results - Last 24 Hours (Table) 09/26/20 09/26/20 09/26/20 Range/Units 02:11 02:11 02:11 WBC 14.2 H (3.8-10.6) k/uL Hct 46.9 H (34.0-46.0) % Neutrophils # 9.9 H (1.3-7.7) k/uL APTT 21.4 L (22.0-30.0) sec Sodium 136 L (137-145) mmol/L BUN 19 H (7-17) mg/dL Glucose 163 H (74-99) mg/dL Plasma Lactic Acid Roldan (0.7-2.0) mmol/L AST 53 H (14-36) U/L ALT 42 H (4-34) U/L Creatine Kinase 214 H (30-135) U/L 09/26/20 Range/Units 02:11 WBC (3.8-10.6) k/uL Hct (34.0-46.0) % Neutrophils # (1.3-7.7) k/uL APTT (22.0-30.0) sec Sodium (137-145) mmol/L BUN (7-17) mg/dL Glucose (74-99) mg/dL Plasma Lactic Acid Roldan 3.9 H* (0.7-2.0) mmol/L AST (14-36) U/L ALT (4-34) U/L Creatine Kinase (30-135) U/L Thrombosis Risk Factor Assmnt - Choose All That Apply Each Risk Factor Represents 2 Points: Age 61-74 years Thrombosis Risk Factor Assessment Total Risk Factor Score: 2 Thrombosis Risk Factor Assessment Level: Low Risk Assessment and Plan Plan: -Acute on chronic hypercapnic and hypoxic respiratory failure secondary to COPD exacerbation continue with the systemic steroids inhalational treatments extensive nicotine cessation counseling was provided -Depression -dvt prophylaxis: Early ambulation -Nicotine use GI prophylaxis with Pepcid
[2020-09-26] MEDS: IPRATROPIUM-ALBUTEROL 3 ML NEB INHALATION SCH ×3 (11:43→21:06)
--- NOTE | 2020-09-26 12:52 | P.CNPUL ---
History of Present Illness Consult date: 09/26/20 Requesting physician: Ilir Banuelos Reason for consult: dyspnea, cough, COPD, hypoxemia Chief complaint: Shortness of breath. History of present illness: 74-year-old female who I saw in consultation on September 23. The patient was admitted to the hospital on September 23. She is a known history of COPD. She sees one of my partners in the office. She has stage III COPD, with an FEV1 that is 36% of predicted. Unfortunately, this patient continues to smoke. Discharged home yesterday on the , and was readmitted to the hospital. She was readmitted on September 26. The patient states that she complained of increasing shortness of breath, cough, wheezing, chest tightness, and phlegm production. Apparently, she called EMS, and she was brought back to the hospital and readmitted. Currently, the patient is on oxygen therapy. She was feeling wonderful on the day of discharge, and actually wanted to go home. We set her up to follow-up with my partner in the office. I suspect she started smoking again. Currently, she is on 5 L nasal cannula, heart rate is 110, respiratory rate is 22, temperature is 98.4, and her blood pressure is 149/86. Her chest x-ray failed to reveal any acute abnormalities, and just showed her underlying COPD. Review of Systems REVIEW OF SYSTEMS: CONSTITUTIONAL: [Negative.] NEUROLOGIC: [ Negative.] HEENT: [ Negative.] CARDIAC: [Negative.] PULMONARY: Shortness of breath, chest tightness, cough, wheezing, phlegm production. GI: [Negative.] : [Negative.] RHEUMATOLOGIC: [ Negative.] IMMUNOLOGIC: [ Negative.] ENDOCRINE: [Negative. ] DERMATOLOGIC: [Negative.] Past Medical History Past Medical History: Cancer, COPD Additional Past Medical History / Comment(s): BASAL CELL CA, ARTHRITIS, OXYGEN AT 2-2.5 LITERS AT HS. History of Any Multi-Drug Resistant Organisms: None Reported Past Surgical History: Orthopedic Surgery Additional Past Surgical History / Comment(s): COLONOSCOPY'S, RETINAL TEAR LEFT EYE, CATARACT RIGHT EYE. Past Anesthesia/Blood Transfusion Reactions: No Reported Reaction Past Psychological History: No Psychological Hx Reported, Depression Smoking Status: Current every day smoker Past Alcohol Use History: Occasional Additional Past Alcohol Use History / Comment(s): 50 YRS. SMOKES 1/2 PPD Past Drug Use History: None Reported - Past Family History Mother Family Medical History: No Reported History Medications and Allergies Home Medications Medication Instructions Recorded Confirmed Type Tiotropium 18 Mcg/Puff [Spiriva] 1 cap INHALATION RT-DAILY 10/03/17 09/26/20 History Albuterol Inhaler [Ventolin Hfa 1 - 2 puff INHALATION RT-Q4H PRN 09/23/20 09/26/20 History Inhaler] Fluticasone Propion/Salmeterol 1 puff INHALATION RT-BID 09/23/20 09/26/20 History [Wixela 500-50 Inhub] Ipratropium-Albuterol Nebulize 3 ml INHALATION RT-Q6H PRN 09/23/20 09/26/20 History [Duoneb 0.5 mg-3 mg/3 ml Soln] Venlafaxine HCl [Effexor XR] 75 mg PO DAILY 09/23/20 09/26/20 History diphenhydrAMINE [Benadryl] 50 mg PO Q4H PRN 09/23/20 09/26/20 History guaiFENesin [Mucinex] 600 mg PO Q12H PRN 09/23/20 09/26/20 History Amoxic-Pot Clav 875-125Mg 1 each PO Q12HR 5 Days #10 tab 09/25/20 09/26/20 Rx [Augmentin 875-125] predniSONE See Taper PO DAILY 09/26/20 09/26/20 History Allergies Allergy/AdvReac Type Severity Reaction Status Date / Time sulfamethoxazole Allergy Unknown Unknown Verified 09/26/20 08:33 [From Bactrim] trimethoprim [From Bactrim] Allergy Unknown Unknown Verified 09/26/20 08:33 Physical Exam Osteopathic Statement: *. No significant issues noted on an osteopathic structu ral exam other than those noted in the History and Physical/Consult. Vitals: Vital Signs Temp Pulse Pulse Resp BP BP Pulse Ox 09/26/20 11:53 110 H 18 09/26/20 11:43 111 H 18 09/26/20 08:03 120 H 22 09/26/20 07:58 98.4 F 102 H 17 149/86 91 L 09/26/20 07:55 120 H 09/26/20 03:27 98.2 F 120 H 159/93 92 L 09/26/20 02:53 117 H 20 141/98 98 09/26/20 02:30 112 H 09/26/20 02:24 112 H 09/26/20 01:51 20 09/26/20 01:46 97.7 F 122 H 20 177/115 98 Intake and Output 09/25/20 09/26/20 09/26/20 22:59 06:59 14:59 Other: # Voids 1 Weight 49.895 kg The patient is oriented 3, with mild to moderate respiratory difficulty, conversational dyspnea, without audible wheezing or use of accessory muscles. The patient is receiving nasal O2 at 5 L. HEENT examination is grossly unremarkable. Mucous membranes are moist. No oral lesions. Neck supple. Full range of motion. No adenopathy thyromegaly or neck vein distention. Cardiovascular examination reveals regular rhythm rate. S1-S2 normal. No S3 or S4. No discernible murmur noted. Heart sounds are distant. Heart rate is 110 bpm. Lungs reveal severely diminished breath sounds bilaterally. There are high- pitched expiratory wheezes and a few scattered rhonchi. No crackles. Breath sounds are equal bilaterally. Abdomen soft bowel sounds are heard. No masses or tenderness. Extremities are intact. No cyanosis clubbing or edema. Skin is without rash or lesion. Neurologic examination is brief but nonfocal. Results - Laboratory Findings CBC and BMP: 09/26/20 02:11 09/26/20 02:11 PT/INR, D-dimer PT 10.7 sec (9.0-12.0) 09/26/20 02:11 INR 1.0 (<1.2) 09/26/20 02:11 Abnormal lab findings: Abnormal Labs 09/26/20 09/26/20 09/26/20 02:11 02:11 02:11 WBC 14.2 H Hct 46.9 H Neutrophils # 9.9 H APTT 21.4 L Sodium 136 L BUN 19 H Glucose 163 H Plasma Lactic Acid Roldan AST 53 H ALT 42 H Creatine Kinase 214 H 09/26/20 02:11 WBC Hct Neutrophils # APTT Sodium BUN Glucose Plasma Lactic Acid Roldan 3.9 H* AST ALT Creatine Kinase - Diagnostic Findings Chest x-ray: image reviewed Assessment and Plan Assessment: Acute exacerbation of COPD, without significant pneumonia and/or purulent tracheobronchitis. History of ongoing tobacco use, with nicotine addiction. Severe COPD, stage III, with an FEV1 that is 36% of predicted. Chronic hypoxemic respiratory failure, with home O2. History of hyperlipidemia. History of essential hypertension. History of basal cell skin cancer. History of arthritis. Plan: Plan dated 09/26/2020. The patient should resume her albuterol sulfate and ipratropium bromide updrafts 4 times a day and when necessary. In addition, the patient should be on Pulmicort, 1 mg, mixed with fomoterol, 20 g, twice a day. In addition, the patient should be on Solu-Medrol 60 mg every 6 hours, and some consideration could be given to a oral antibiotic for 3-5 days. It does not appear that she has significant infectious bronchitis or pneumonia. The patient should have a nicotine patch placed at 21 mg a day. Additional recommendations and suggestions are forthcoming. Prognosis is guarded. Time with Patient: Greater than 30
[2020-09-26 14:09] VITALS: BMI 18.8
[2020-09-26] MEDS ORDERED: methylPREDNISolone SOD SUCCI 40 MG/ML 1 ML VIAL IV SCH (16:00)
[2020-09-26] MEDS: methylPREDNISolone SOD SUCCI 125 MG/2 ML VIAL IV SCH ×2 (17:19→23:21)
[2020-09-26] MEDS ORDERED: SYMBICORT 160-4.5 MCG INHALER INHALATION SCH (20:00)
[2020-09-26] MEDS ORDERED: NICOTINE 21MG/24HR PATCH TRANSDERM STA (20:14)
[2020-09-26] MEDS: AMOXIC-POT CLAV 875-125MG 1 EACH TAB PO SCH (20:17)
[2020-09-26 20:45] LABS: Glucose,Whole Blood 130 mg/dL (75-99)
[2020-09-27] MEDS: methylPREDNISolone SOD SUCCI 125 MG/2 ML VIAL IV SCH (05:51)
[2020-09-27 06:50] LABS: Glucose,Whole Blood 133 mg/dL (75-99)
[2020-09-27 07:39] LABS: Basophils % (A) 0 %; Eosinophils % (A) 0 %; HCT 43.3 % (34.0-46.0); HGB 14.4 gm/dL (11.4-16.0); Lymphocytes # (A) 0.4 k/uL (1.0-4.8); Lymphocytes % (A) 7 %; MCH 30.9 pg (25.0-35.0); MCHC 33.2 g/dL (31.0-37.0); MCV 93.1 fL (80.0-100.0); Mean Platelet Volume 8.1; Monocytes # (A) 0.3 k/uL (0-1.0); Monocytes % (A) 5 %; Neutrophils # (A) 5.9 k/uL (1.3-7.7); Neutrophils % (A) 88 %; Platelet Count 155 k/uL (150-450); RBC 4.65 m/uL (3.80-5.40); RDW 13.5 % (11.5-15.5); WBC 6.7 k/uL (3.8-10.6)
[2020-09-27] MEDS: AMOXIC-POT CLAV 875-125MG 1 EACH TAB PO SCH (07:40)
[2020-09-27 07:51] VITALS: BP 176/89; TEMP 97.4
[2020-09-27] MEDS: IPRATROPIUM-ALBUTEROL 3 ML NEB INHALATION SCH ×2 (08:33→11:45)
[2020-09-27 08:35] VITALS: RESP 18
[2020-09-27] MEDS ORDERED: VENLAFAXINE HCL ER 75 MG CAP PO SCH (09:00)
[2020-09-27] MEDS ORDERED: NICOTINE 21MG/24HR PATCH TRANSDERM SCH (09:00)
--- NOTE | 2020-09-27 09:58 | P.DS ---
Providers Date of admission: 09/26/20 02:23 Attending physician: Ilir Banuelos Consults: 09/26/20 02:23 Consult Physician Routine Consulting Provider: Pedro Augustine Consult Reason/Comments: known Do you want consulting provider notified?: Yes, Notify in am Primary care physician: [facility] Course: 74-year-old female was discharged yesterday after she was treated for COPD patient usually uses 2.5 L of oxygen. Patient went home started her feeling short of breath came back again. Patient doesn't smoke. Although she denied smoking yesterday. Patient denied any fever chills chest x-ray did not show any pneumonia patient was started back on IV steroids inhalational treatments. He was comparing of cough without sputum production. 09/27/2020 Patient is on 3 L of oxygen today wanted to go home. extensive counseling regarding nicotine cessation was provided it appears like patient have smoked after discharge and ended up coming to the hospital again. Prescription for nicotine patches was provided as well. PHYSICAL EXAMINATION: GENERAL: The patient is alert and oriented x3, not in any acute distress. Thin built female. HEENT: Pupils are round and equally reacting to light. EOMI. No scleral icterus. No conjunctival pallor. Normocephalic, atraumatic. No pharyngeal erythema. No thyromegaly. CARDIOVASCULAR: S1 and S2 present. No murmurs, rubs, or gallops. PULMONARY: Decreased air entry, wheezing improved ABDOMEN: Soft, nontender, nondistended, normoactive bowel sounds. No palpable organomegaly. MUSCULOSKELETAL: No joint swelling or deformity. EXTREMITIES: No cyanosis, clubbing, or pedal edema. NEUROLOGICAL: Gross neurological examination did not reveal any focal deficits. SKIN: No rashes Assessment and Plan Plan: -Acute on chronic hypercapnic and hypoxic respiratory failure secondary to COPD exacerbation -Depression -dvt prophylaxis: Early ambulation -Nicotine use GI prophylaxis with Pepcid Patient Condition at Discharge: Serious Plan - Discharge Summary New Discharge Prescriptions: New Nicotine 21Mg/24Hr Patch [Habitrol] 1 patch TRANSDERM DAILY #14 patch Continue Tiotropium 18 Mcg/Puff [Spiriva] 1 cap INHALATION RT-DAILY Albuterol Inhaler [Ventolin Hfa Inhaler] 1 - 2 puff INHALATION RT-Q4H PRN PRN Reason: Shortness Of Breath guaiFENesin [Mucinex] 600 mg PO Q12H PRN PRN Reason: Cough diphenhydrAMINE [Benadryl] 50 mg PO Q4H PRN PRN Reason: Allergy Symptoms Fluticasone Propion/Salmeterol [Wixela 500-50 Inhub] 1 puff INHALATION RT-BID Venlafaxine HCl [Effexor XR] 75 mg PO DAILY Ipratropium-Albuterol Nebulize [Duoneb 0.5 mg-3 mg/3 ml Soln] 3 ml INHALATION RT-Q6H PRN PRN Reason: Shortness Of Breath Amoxic-Pot Clav 875-125Mg [Augmentin 875-125] 1 each PO Q12HR 5 Days #10 tab predniSONE See Taper PO DAILY Discharge Medication List Tiotropium 18 Mcg/Puff [Spiriva] 1 cap INHALATION RT-DAILY 10/03/17 [History] Albuterol Inhaler [Ventolin Hfa Inhaler] 1 - 2 puff INHALATION RT-Q4H PRN 09/23/20 [History] Fluticasone Propion/Salmeterol [Wixela 500-50 Inhub] 1 puff INHALATION RT-BID 09/23/20 [History] Ipratropium-Albuterol Nebulize [Duoneb 0.5 mg-3 mg/3 ml Soln] 3 ml INHALATION RT-Q6H PRN 09/23/20 [History] Venlafaxine HCl [Effexor XR] 75 mg PO DAILY 09/23/20 [History] diphenhydrAMINE [Benadryl] 50 mg PO Q4H PRN 09/23/20 [History] guaiFENesin [Mucinex] 600 mg PO Q12H PRN 09/23/20 [History] Amoxic-Pot Clav 875-125Mg [Augmentin 875-125] 1 each PO Q12HR 5 Days #10 tab 09/25/20 [Rx] predniSONE See Taper PO DAILY 09/26/20 [History] Nicotine 21Mg/24Hr Patch [Habitrol] 1 patch TRANSDERM DAILY #14 patch 09/27/20 [Rx] Follow up Appointment(s)/Referral(s): Jamie Brooks DO [Primary Care Provider] - 3 Days Pedro Augustine DO [Doctor of Osteopathic Medicine] - 1 Week Discharge Disposition: HOME SELF-CARE
[2020-09-27 11:21] LABS: Glucose,Whole Blood 140 mg/dL (75-99)
[2020-09-27 11:58] VITALS: PULSE 88
[2020-09-27 12:16] LABS: African American GFR (CKD) 99.6 (60.0-200.0); Anion Gap 5.4 mmol/L (4.00-12.00); BUN/Creat Ratio 27.14 Ratio (12.00-20.00); Calcium 9.6 mg/dL (8.7-10.3); Carbon Dioxide 32.6 mmol/L (21.6-31.8); Potassium 4.2 mmol/L (3.5-5.5)
--- NOTE | 2020-09-27 15:48 | P.PN ---
Subjective Progress Note Date: 09/27/20 Principal diagnosis: Acute exacerbation of chronic obstructive pulmonary disease 74-year-old female who I saw in consultation on September 23. The patient was admitted to the hospital on September 23. She is a known history of COPD. She sees one of my partners in the office. She has stage III COPD, with an FEV1 that is 36% of predicted. Unfortunately, this patient continues to smoke. Discharged home yesterday on the , and was readmitted to the hospital. She was readmitted on September 26. The patient states that she complained of increasing shortness of breath, cough, wheezing, chest tightness, and phlegm production. Apparently, she called EMS, and she was brought back to the hospital and readmitted. Currently, the patient is on oxygen therapy. She was feeling wonderful on the day of discharge, and actually wanted to go home. We set her up to follow-up with my partner in the office. I suspect she started smoking again. Currently, she is on 5 L nasal cannula, heart rate is 110, respiratory rate is 22, temperature is 98.4, and her blood pressure is 149/86. Her chest x-ray failed to reveal any acute abnormalities, and just showed her underlying COPD. The patient is seen today 09/27/2020 in follow-up on the regular medical floor. She remains awake and alert in no acute distress. She is breathing a bit easier today compared to yesterday. She is on 3 L/m per nasal cannula. White count 6.7. Hemoglobin 14.4. Sodium 137. Potassium 4.2. Creatinine 0.7. Glucose 120. She remains on DuoNeb inhalations, Symbicort, IV Solu-Medrol. Antibiotics in the form of Augmentin. NicoDerm patch in place. Objective - Vital Signs Vital signs: Vital Signs Temp 97.4 F L 09/27/20 07:49 Pulse 88 09/27/20 11:57 Resp 18 09/27/20 11:57 BP 176/89 09/27/20 07:49 Pulse Ox 96 09/27/20 07:49 Intake & Output 09/26/20 09/27/20 09/27/20 18:59 06:59 18:59 Weight 49.895 kg Other: Voiding Method Toilet Toilet # Voids 6 2 - Exam GENERAL EXAM: Alert, active, pleasant 74-year-old female patient, on 3 L nasal cannula, comfortable in no apparent distress. HEAD: Normocephalic. EYES: Normal reaction of pupils, equal size. NOSE: Clear with pink turbinates. THROAT: No erythema or exudates. NECK: No masses, no JVD. CHEST: No chest wall deformity. LUNGS: Equal air entry with faint end expiratory wheeze, diminished. CVS: S1 and S2 normal with no audible murmur, regular rhythm. ABDOMEN: No hepatosplenomegaly, normal bowel sounds, no guarding or rigidity. SPINE: No scoliosis or deformity SKIN: No rashes CENTRAL NERVOUS SYSTEM: No focal deficits, tone is normal in all 4 extremities. EXTREMITIES: There is no peripheral edema. No clubbing, no cyanosis. Peripheral pulses are intact. - Labs CBC & Chem 7: 09/27/20 07:11 09/27/20 07:11 Labs: Abnormal Lab Results - Last 24 Hours (Table) 09/26/20 09/27/20 09/27/20 Range/Units 20:41 06:49 07:11 Lymphocytes # 0.4 L (1.0-4.8) k/uL Carbon Dioxide (21.6-31.8) mmol/L BUN/Creatinine Ratio (12.00-20.00) Ratio Glucose (70-110) mg/dL POC Glucose (mg/dL) 130 H 133 H (75-99) mg/dL 09/27/20 09/27/20 Range/Units 07:11 11:19 Lymphocytes # (1.0-4.8) k/uL Carbon Dioxide 32.6 H (21.6-31.8) mmol/L BUN/Creatinine Ratio 27.14 H (12.00-20.00) Ratio Glucose 120 H (70-110) mg/dL POC Glucose (mg/dL) 140 H (75-99) mg/dL Assessment and Plan Assessment: 1 Acute exacerbation of COPD, without significant pneumonia and/or purulent tracheobronchitis. 2 History of ongoing tobacco use, with nicotine addiction. 3 Severe COPD, stage III, with an FEV1 that is 36% of predicted. 4 Chronic hypoxemic respiratory failure, with home O2. 5 History of hyperlipidemia. 6 History of essential hypertension. 7 History of basal cell skin cancer. 8 History of arthritis. Plan: The patient was seen and evaluated by Dr. Dr. Augustine Cleared for discharge from the pulmonary standpoint Continue bronchodilators Complete a prednisone taper Educated regarding the importance of complete smoking cessation Follow-up in the office in 1-2 weeks' time I, the cosigning physician, performed a history & physical examination of the patient. Lungs sounds with faint end expiratory wheeze, diminished. Maintaining good O2 saturations in the 90s on 3 L/m per nasal cannula. I discussed the assessment and plan of care with my nurse practitioner, Amy Richards. I attest to the above note as dictated by her.
== END 2020-09-27 14:19 | disposition home or self-care (01) | DRG 190 ==
LOC: EC 01:44 → 4SSUR 02:23
PROVIDERS: ADMIT Hospitalist; ATTEND Hospitalist
DX: J44.1 Chronic obstructive pulmonary disease with (acute) exacerbation (principal); J96.21 Acute and chronic respiratory failure with hypoxia; M19.90 Unspecified osteoarthritis, unspecified site; J96.22 Acute and chronic respiratory failure with hypercapnia; H26.9 Unspecified cataract; H33.312 Horseshoe tear of retina without detachment, left eye; F17.210 Nicotine dependence, cigarettes, uncomplicated; R00.0 Tachycardia, unspecified; F32.9 Major depressive disorder, single episode, unspecified; I10 Essential (primary) hypertension; E78.5 Hyperlipidemia, unspecified; Z79.52 Long term (current) use of systemic steroids; Z88.2 Allergy status to sulfonamides; Z79.899 Other long term (current) drug therapy; Z71.6 Tobacco abuse counseling; Z85.828 Personal history of other malignant neoplasm of skin; Z99.81 Dependence on supplemental oxygen
CPT/HCPCS: 36415; 71045; 80048; 80053; 82550; 83605; 83735; 83880; 84484; 85025; 85610; 85730; 93005; 94640; 96361; 96374; 99291

== ENCOUNTER 2021-02-03 03:05 | Emergency (ER) | payer MEDICARE ==
[2021-02-03 03:18] VITALS: RESP 18
[2021-02-03] MEDS ORDERED: IPRATROPIUM-ALBUTEROL 3 ML NEB INHALATION STA (03:26)
--- NOTE | 2021-02-03 03:32 | ED ---
SOB HPI - General Chief Complaint: Shortness of Breath Stated Complaint: KEL Time Seen by Provider: 02/03/21 03:23 Source: patient, family Mode of arrival: wheelchair Limitations: no limitations - History of Present Illness Initial Comments: This patient is 75-year-old woman with history of COPD who presents with worsening of her breathing. She states that she went to take her evening medication and found that she was out of albuterol. She states that she was thinking she would make it through until the morning when she could obtain a refill of her medication but she became more short of breath. Patient denies new symptoms. No fever or chills. No chest pain or change in her cough. No change in urination or bowel movements. No leg pain or swelling. MD Complaint: shortness of breath -: hour(s) Severity scale (1-10): 0 Consistency: constant Improves With: nothing Worsens With: nothing Known History Of: COPD Associated Symptoms: denies other symptoms - Related Data Home Medications Medication Instructions Recorded Confirmed Tiotropium 18 Mcg/Puff [Spiriva] 1 cap INHALATION RT-DAILY 10/03/17 09/26/20 Albuterol Inhaler [Ventolin Hfa 1 - 2 puff INHALATION RT-Q4H PRN 09/23/20 09/26/20 Inhaler] Fluticasone Propion/Salmeterol 1 puff INHALATION RT-BID 09/23/20 09/26/20 [Wixela 500-50 Inhub] Ipratropium-Albuterol Nebulize 3 ml INHALATION RT-Q6H PRN 09/23/20 09/26/20 [Duoneb 0.5 mg-3 mg/3 ml Soln] Venlafaxine HCl [Effexor XR] 75 mg PO DAILY 09/23/20 09/26/20 diphenhydrAMINE [Benadryl] 50 mg PO Q4H PRN 09/23/20 09/26/20 guaiFENesin [Mucinex] 600 mg PO Q12H PRN 09/23/20 09/26/20 predniSONE See Taper PO DAILY 09/26/20 09/26/20 Previous Rx's Medication Instructions Recorded Amoxic-Pot Clav 875-125Mg 1 each PO Q12HR 5 Days #10 tab 09/25/20 [Augmentin 875-125] Nicotine 21Mg/24Hr Patch [Habitrol] 1 patch TRANSDERM DAILY #14 patch 09/27/20 Allergies Allergy/AdvReac Type Severity Reaction Status Date / Time sulfamethoxazole Allergy Unknown Unknown Verified 02/03/21 03:17 [From Bactrim] trimethoprim [From Bactrim] Allergy Unknown Unknown Verified 02/03/21 03:17 Review of Systems ROS Statement: Those systems with pertinent positive or pertinent negative responses have been documented in the HPI. ROS Other: All systems not noted in ROS Statement are negative. Constitutional: Denies: fever, chills Respiratory: Reports: dyspnea, wheezes. Denies: cough, hemoptysis Cardiovascular: Denies: chest pain, palpitations, edema, syncope Gastrointestinal: Denies: abdominal pain, vomiting, diarrhea, melena, hematochezia Genitourinary: Denies: dysuria, hematuria Musculoskeletal: Denies: back pain Skin: Denies: rash Neurological: Denies: headache, weakness, numbness Past Medical History Past Medical History: Cancer, COPD Additional Past Medical History / Comment(s): BASAL CELL CA, ARTHRITIS, OXYGEN AT 2-2.5 LITERS AT HS. History of Any Multi-Drug Resistant Organisms: None Reported Past Surgical History: Orthopedic Surgery Additional Past Surgical History / Comment(s): COLONOSCOPY'S, RETINAL TEAR LEFT EYE, CATARACT RIGHT EYE. Past Anesthesia/Blood Transfusion Reactions: No Reported Reaction Past Psychological History: No Psychological Hx Reported, Depression Smoking Status: Current every day smoker Past Alcohol Use History: Occasional Past Drug Use History: None Reported - Past Family History Mother Family Medical History: No Reported History General Exam Limitations: no limitations General appearance: alert, in no apparent distress Head exam: Present: atraumatic, normocephalic Eye exam: Present: normal appearance. Absent: scleral icterus, conjunctival injection Neck exam: Present: normal inspection Respiratory exam: Present: wheezes, decreased breath sounds, prolonged expiratory. Absent: rales, rhonchi, stridor, chest wall tenderness, accessory muscle use Cardiovascular Exam: Present: regular rate, normal rhythm, normal heart sounds. Absent: systolic murmur, diastolic murmur, rubs, gallop GI/Abdominal exam: Present: soft. Absent: distended, tenderness, guarding, rebound, rigid, mass Extremities exam: Present: normal inspection, normal capillary refill. Absent: tenderness, pedal edema, calf tenderness Back exam: Present: normal inspection Neurological exam: Present: alert Skin exam: Present: warm, dry, intact, normal color. Absent: rash Course Vital Signs 02/03/21 02/03/21 02/03/21 03:16 04:22 04:35 Temperature 97.3 F L Pulse Rate 93 92 88 Respiratory 18 Rate Blood Pressure 117/57 O2 Sat by Pulse 96 Oximetry Medical Decision Making - Lab Data Result diagrams: 02/03/21 03:33 02/03/21 03:33 Lab Results 02/03/21 02/03/21 02/03/21 Range/Units 03:33 03:33 03:33 WBC 7.1 (3.8-10.6) k/uL RBC 4.92 (3.80-5.40) m/uL Hgb 15.0 (11.4-16.0) gm/dL Hct 45.1 (34.0-46.0) % MCV 91.7 (80.0-100.0) fL MCH 30.5 (25.0-35.0) pg MCHC 33.3 (31.0-37.0) g/dL RDW 13.5 (11.5-15.5) % Plt Count 198 (150-450) k/uL MPV 8.1 Neutrophils % 63 % Lymphocytes % 24 % Monocytes % 5 % Eosinophils % 5 % Basophils % 1 % Neutrophils # 4.5 (1.3-7.7) k/uL Lymphocytes # 1.7 (1.0-4.8) k/uL Monocytes # 0.4 (0-1.0) k/uL Eosinophils # 0.3 (0-0.7) k/uL Basophils # 0.1 (0-0.2) k/uL PT 10.1 (9.0-12.0) sec INR 0.9 (<1.2) APTT 25.0 (22.0-30.0) sec Sodium 136 L (137-145) mmol/L Potassium 4.0 (3.5-5.1) mmol/L Chloride 104 (98-107) mmol/L Carbon Dioxide 25 (22-30) mmol/L Anion Gap 7 mmol/L BUN 16 (7-17) mg/dL Creatinine 0.68 (0.52-1.04) mg/dL Est GFR (CKD-EPI)AfAm >90 (>60 ml/min/1.73 sqM) Est GFR (CKD-EPI)NonAf 86 (>60 ml/min/1.73 sqM) Glucose 127 H (74-99) mg/dL Plasma Lactic Acid Roldan (0.7-2.0) mmol/L Calcium 9.8 (8.4-10.2) mg/dL Total Bilirubin 0.3 (0.2-1.3) mg/dL AST 28 (14-36) U/L ALT 14 (4-34) U/L Alkaline Phosphatase 74 (38-126) U/L Troponin I (0.000-0.034) ng/mL Total Protein 7.0 (6.3-8.2) g/dL Albumin 4.5 (3.5-5.0) g/dL 02/03/21 02/03/21 Range/Units 03:33 03:33 WBC (3.8-10.6) k/uL RBC (3.80-5.40) m/uL Hgb (11.4-16.0) gm/dL Hct (34.0-46.0) % MCV (80.0-100.0) fL MCH (25.0-35.0) pg MCHC (31.0-37.0) g/dL RDW (11.5-15.5) % Plt Count (150-450) k/uL MPV Neutrophils % % Lymphocytes % % Monocytes % % Eosinophils % % Basophils % % Neutrophils # (1.3-7.7) k/uL Lymphocytes # (1.0-4.8) k/uL Monocytes # (0-1.0) k/uL Eosinophils # (0-0.7) k/uL Basophils # (0-0.2) k/uL PT (9.0-12.0) sec INR (<1.2) APTT (22.0-30.0) sec Sodium (137-145) mmol/L Potassium (3.5-5.1) mmol/L Chloride (98-107) mmol/L Carbon Dioxide (22-30) mmol/L Anion Gap mmol/L BUN (7-17) mg/dL Creatinine (0.52-1.04) mg/dL Est GFR (CKD-EPI)AfAm (>60 ml/min/1.73 sqM) Est GFR (CKD-EPI)NonAf (>60 ml/min/1.73 sqM) Glucose (74-99) mg/dL Plasma Lactic Acid Roldan 1.0 (0.7-2.0) mmol/L Calcium (8.4-10.2) mg/dL Total Bilirubin (0.2-1.3) mg/dL AST (14-36) U/L ALT (4-34) U/L Alkaline Phosphatase (38-126) U/L Troponin I <0.012 (0.000-0.034) ng/mL Total Protein (6.3-8.2) g/dL Albumin (3.5-5.0) g/dL - EKG Data -: EKG Interpreted by [facility] EKG shows normal: sinus rhythm, axis (Normal), intervals (Normal), QRS complexes (Normal), ST-T waves (Normal) Rate: tachycardia (Rate 106 bpm) Disposition Clinical Impression: Acute exacerbation of chronic obstructive pulmonary disease Disposition: HOME SELF-CARE Condition: Good Instructions (If sedation given, give patient instructions): COPD (Chronic Obstructive Pulmonary Disease) (ED) Is patient prescribed a controlled substance at d/c from ED?: No Referrals: Jamie Brooks DO [Primary Care Provider] - 1-2 days
[2021-02-03 03:44] LABS: Basophils # (A) 0.1 k/uL (0-0.2); Basophils % (A) 1 %; Eosinophils # (A) 0.3 k/uL (0-0.7); Eosinophils % (A) 5 %; HCT 45.1 % (34.0-46.0); Lymphocytes # (A) 1.7 k/uL (1.0-4.8); Lymphocytes % (A) 24 %; MCH 30.5 pg (25.0-35.0); MCHC 33.3 g/dL (31.0-37.0); MCV 91.7 fL (80.0-100.0); Mean Platelet Volume 8.1; Monocytes # (A) 0.4 k/uL (0-1.0); Monocytes % (A) 5 %; Neutrophils # (A) 4.5 k/uL (1.3-7.7); Neutrophils % (A) 63 %; Platelet Count 198 k/uL (150-450); RBC 4.92 m/uL (3.80-5.40); RDW 13.5 % (11.5-15.5); WBC 7.1 k/uL (3.8-10.6)
[2021-02-03 03:54] LABS: ALT 14 U/L (4-34); AST 28 U/L (14-36); African American GFR (CKD) >90 (>60 ml/min/1.73 sqM); Albumin 4.5 g/dL (3.5-5.0); Alkaline Phosphatase 74 U/L (38-126); Anion Gap 7 mmol/L; Blood Urea Nitrogen 16 mg/dL (7-17); Calcium 9.8 mg/dL (8.4-10.2); Carbon Dioxide 25 mmol/L (22-30); Chloride 104 mmol/L (98-107); Glucose 127 mg/dL (74-99); Non-African American GFR(CKD) 86 (>60 ml/min/1.73 sqM); Sodium 136 mmol/L (137-145); Total Bilirubin 0.3 mg/dL (0.2-1.3)
[2021-02-03 04:03] LABS: INR 0.9 (<1.2); Prothrombin Time 10.1 sec (9.0-12.0)
[2021-02-03] MEDS ORDERED: ALBUTEROL NEBULIZED 2.5 MG/3 ML INHALATION STA (05:03)
[2021-02-03 05:12] VITALS: BP 134/91; PULSE 94; TEMP 98.2
== END 2021-02-03 05:04 | disposition home or self-care (01) ==
LOC: EC 03:05
DX: J44.1 Chronic obstructive pulmonary disease with (acute) exacerbation (principal); F32.9 Major depressive disorder, single episode, unspecified; F17.200 Nicotine dependence, unspecified, uncomplicated; Z79.51 Long term (current) use of inhaled steroids
CPT/HCPCS: 36415; 80053; 83605; 83880; 84484; 85025; 85610; 85730; 93005; 94640; 99285

== ENCOUNTER 2021-02-26 19:54 | Emergency (ER) | payer MEDICARE ==
[2021-02-26 20:00] VITALS: TEMP 98.3
[2021-02-26] MEDS ORDERED: IPRATROPIUM-ALBUTEROL 3 ML NEB INHALATION STA (20:06)
--- NOTE | 2021-02-26 20:09 | ED ---
SOB HPI - General Chief Complaint: Shortness of Breath Stated Complaint: Time Seen by Provider: 02/26/21 20:01 Source: patient, EMS Mode of arrival: EMS Limitations: no limitations - History of Present Illness Initial Comments: 75-year-old female with history of oxygen-dependent COPD on 5 L presents to the emergency department the chief complaint of shortness of breath. Patient reports shortness of breath beginning to occur about 1-2 days ago and gradually increasing severity. States she is currently on a prednisone taper that was prescribed to her by Dr. Razo who is her drosser. Also reports worsening of her exertional dyspnea and dizziness. States this feels typical COPD exacerbation periods also reports a bronchospastic cough that is nonproductive in nature. She denies any fevers or chills nausea vomiting diarrhea. She denies any chest pain. Reports taking 4 albuterol treatments, nebulized earlier today with no significant improvement in symptoms. Patient was brought to the ED via EMS and she was given 125 mg of Solu-Medrol in route. - Related Data Home Medications Medication Instructions Recorded Confirmed Tiotropium 18 Mcg/Puff [Spiriva] 1 cap INHALATION RT-DAILY 10/03/17 09/26/20 Albuterol Inhaler [Ventolin Hfa 1 - 2 puff INHALATION RT-Q4H PRN 09/23/20 09/26/20 Inhaler] Fluticasone Propion/Salmeterol 1 puff INHALATION RT-BID 09/23/20 09/26/20 [Wixela 500-50 Inhub] Ipratropium-Albuterol Nebulize 3 ml INHALATION RT-Q6H PRN 09/23/20 09/26/20 [Duoneb 0.5 mg-3 mg/3 ml Soln] Venlafaxine HCl [Effexor XR] 75 mg PO DAILY 09/23/20 09/26/20 diphenhydrAMINE [Benadryl] 50 mg PO Q4H PRN 09/23/20 09/26/20 guaiFENesin [Mucinex] 600 mg PO Q12H PRN 09/23/20 09/26/20 predniSONE See Taper PO DAILY 09/26/20 09/26/20 Previous Rx's Medication Instructions Recorded Amoxic-Pot Clav 875-125Mg 1 each PO Q12HR 5 Days #10 tab 09/25/20 [Augmentin 875-125] Nicotine 21Mg/24Hr Patch [Habitrol] 1 patch TRANSDERM DAILY #14 patch 09/27/20 Allergies Allergy/AdvReac Type Severity Reaction Status Date / Time sulfamethoxazole Allergy Unknown Unknown Verified 02/26/21 20:00 [From Bactrim] trimethoprim [From Bactrim] Allergy Unknown Unknown Verified 02/26/21 20:00 Review of Systems ROS Statement: Those systems with pertinent positive or pertinent negative responses have been documented in the HPI. ROS Other: All systems not noted in ROS Statement are negative. Past Medical History Past Medical History: Cancer, COPD Additional Past Medical History / Comment(s): BASAL CELL CA, ARTHRITIS, OXYGEN AT 2-2.5 LITERS AT HS. History of Any Multi-Drug Resistant Organisms: None Reported Past Surgical History: Orthopedic Surgery Additional Past Surgical History / Comment(s): COLONOSCOPY'S, RETINAL TEAR LEFT EYE, CATARACT RIGHT EYE. Past Anesthesia/Blood Transfusion Reactions: No Reported Reaction Past Psychological History: No Psychological Hx Reported, Depression Smoking Status: Current every day smoker Past Alcohol Use History: Occasional Past Drug Use History: None Reported - Past Family History Mother Family Medical History: No Reported History General Exam Limitations: no limitations General appearance: alert, in no apparent distress Head exam: Present: atraumatic, normocephalic, normal inspection Eye exam: Present: normal appearance, PERRL, EOMI Pupils: Present: normal accommodation ENT exam: Present: normal exam, normal oropharynx, mucous membranes moist, TM's normal bilaterally, normal external ear exam Neck exam: Present: normal inspection, full ROM. Absent: tenderness Respiratory exam: Present: wheezes (Diffuse bilateral wheezing), decreased breath sounds, prolonged expiratory. Absent: normal lung sounds bilaterally, rales, rhonchi, stridor, chest wall tenderness, accessory muscle use Cardiovascular Exam: Present: regular rate, normal rhythm, normal heart sounds. Absent: systolic murmur Extremities exam: Present: normal inspection, full ROM. Absent: tenderness Back exam: Present: normal inspection, full ROM. Absent: tenderness Neurological exam: Present: alert, oriented X3, normal gait Psychiatric exam: Present: normal affect, normal mood Skin exam: Present: warm, dry, intact, normal color Course Vital Signs 02/26/21 02/26/21 02/26/21 19:58 20:00 20:05 Temperature 98.3 F Pulse Rate 112 H 105 H Respiratory 16 22 25 H Rate Blood Pressure 155/86 145/83 O2 Sat by Pulse 94 L 97 Oximetry 02/26/21 20:55 Temperature Pulse Rate 104 H Respiratory Rate Blood Pressure O2 Sat by Pulse Oximetry Medical Decision Making - Medical Decision Making 75-year-old female with history of oxygen-dependent COPD on 5 L presents to the emergency department the chief complaint of shortness of breath. On physical examination, patient has diffuse bilateral wheezing with decreased breath sounds. Chest x-ray shows COPD but no other acute findings. She states this is her typical COPD exacerbation. She was given 125 mg of Solu-Medrol in route via EMS. Patient was given another breathing treatment in emergency department of [facility]. Physical examination, patient did appear to be slightly improved. Given her the option of admission. States she would rather be discharged and will follow-up with her drosser an outpatient basis. Patient is currently on prednisone so I will not start her on a new course. Return parameters were thoroughly discussed the patient was understanding and agreeable. Case discussed with - Lab Data Result diagrams: 02/26/21 20:14 02/26/21 20:14 Lab Results 02/26/21 02/26/21 02/26/21 Range/Units 20:14 20:14 20:14 WBC 6.8 (3.8-10.6) k/uL RBC 5.15 (3.80-5.40) m/uL Hgb 15.1 (11.4-16.0) gm/dL Hct 47.7 H (34.0-46.0) % MCV 92.5 (80.0-100.0) fL MCH 29.3 (25.0-35.0) pg MCHC 31.7 (31.0-37.0) g/dL RDW 14.1 (11.5-15.5) % Plt Count 216 (150-450) k/uL MPV 8.3 Neutrophils % 54 % Lymphocytes % 33 % Monocytes % 5 % Eosinophils % 5 % Basophils % 1 % Neutrophils # 3.7 (1.3-7.7) k/uL Lymphocytes # 2.2 (1.0-4.8) k/uL Monocytes # 0.3 (0-1.0) k/uL Eosinophils # 0.3 (0-0.7) k/uL Basophils # 0.1 (0-0.2) k/uL PT 10.9 (9.0-12.0) sec INR 1.0 (<1.2) APTT 22.5 (22.0-30.0) sec Sodium 137 (137-145) mmol/L Potassium 4.2 (3.5-5.1) mmol/L Chloride 103 (98-107) mmol/L Carbon Dioxide 25 (22-30) mmol/L Anion Gap 9 mmol/L BUN 14 (7-17) mg/dL Creatinine 0.64 (0.52-1.04) mg/dL Est GFR (CKD-EPI)AfAm >90 (>60 ml/min/1.73 sqM) Est GFR (CKD-EPI)NonAf 88 (>60 ml/min/1.73 sqM) Glucose 149 H (74-99) mg/dL Calcium 9.7 (8.4-10.2) mg/dL Magnesium 1.7 (1.6-2.3) mg/dL Total Bilirubin 0.5 (0.2-1.3) mg/dL AST 29 (14-36) U/L ALT 15 (4-34) U/L Alkaline Phosphatase 72 (38-126) U/L Troponin I (0.000-0.034) ng/mL Total Protein 7.0 (6.3-8.2) g/dL Albumin 4.5 (3.5-5.0) g/dL 02/26/21 Range/Units 20:14 WBC (3.8-10.6) k/uL RBC (3.80-5.40) m/uL Hgb (11.4-16.0) gm/dL Hct (34.0-46.0) % MCV (80.0-100.0) fL MCH (25.0-35.0) pg MCHC (31.0-37.0) g/dL RDW (11.5-15.5) % Plt Count (150-450) k/uL MPV Neutrophils % % Lymphocytes % % Monocytes % % Eosinophils % % Basophils % % Neutrophils # (1.3-7.7) k/uL Lymphocytes # (1.0-4.8) k/uL Monocytes # (0-1.0) k/uL Eosinophils # (0-0.7) k/uL Basophils # (0-0.2) k/uL PT (9.0-12.0) sec INR (<1.2) APTT (22.0-30.0) sec Sodium (137-145) mmol/L Potassium (3.5-5.1) mmol/L Chloride (98-107) mmol/L Carbon Dioxide (22-30) mmol/L Anion Gap mmol/L BUN (7-17) mg/dL Creatinine (0.52-1.04) mg/dL Est GFR (CKD-EPI)AfAm (>60 ml/min/1.73 sqM) Est GFR (CKD-EPI)NonAf (>60 ml/min/1.73 sqM) Glucose (74-99) mg/dL Calcium (8.4-10.2) mg/dL Magnesium (1.6-2.3) mg/dL Total Bilirubin (0.2-1.3) mg/dL AST (14-36) U/L ALT (4-34) U/L Alkaline Phosphatase (38-126) U/L Troponin I <0.012 (0.000-0.034) ng/mL Total Protein (6.3-8.2) g/dL Albumin (3.5-5.0) g/dL Disposition Clinical Impression: Acute exacerbation of chronic obstructive pulmonary disease Disposition: HOME SELF-CARE Condition: Good Instructions (If sedation given, give patient instructions): Chronic Cough (ED) Additional Instructions: Please return to the Emergency Department if symptoms worsen or any other concerns. Is patient prescribed a controlled substance at d/c from ED?: No Referrals: Jamie Brooks DO [Primary Care Provider] - 1-2 days Time of Disposition: 21:23
[2021-02-26 20:25] LABS: Basophils # (A) 0.1 k/uL (0-0.2); Basophils % (A) 1 %; Eosinophils # (A) 0.3 k/uL (0-0.7); Eosinophils % (A) 5 %; HCT 47.7 % (34.0-46.0); HGB 15.1 gm/dL (11.4-16.0); Lymphocytes # (A) 2.2 k/uL (1.0-4.8); Lymphocytes % (A) 33 %; MCH 29.3 pg (25.0-35.0); MCHC 31.7 g/dL (31.0-37.0); MCV 92.5 fL (80.0-100.0); Mean Platelet Volume 8.3; Monocytes # (A) 0.3 k/uL (0-1.0); Monocytes % (A) 5 %; Neutrophils # (A) 3.7 k/uL (1.3-7.7); Neutrophils % (A) 54 %; Platelet Count 216 k/uL (150-450); RBC 5.15 m/uL (3.80-5.40); RDW 14.1 % (11.5-15.5); WBC 6.8 k/uL (3.8-10.6)
[2021-02-26 20:38] LABS: ALT 15 U/L (4-34); AST 29 U/L (14-36); African American GFR (CKD) >90 (>60 ml/min/1.73 sqM); Albumin 4.5 g/dL (3.5-5.0); Alkaline Phosphatase 72 U/L (38-126); Anion Gap 9 mmol/L; Blood Urea Nitrogen 14 mg/dL (7-17); Calcium 9.7 mg/dL (8.4-10.2); Carbon Dioxide 25 mmol/L (22-30); Chloride 103 mmol/L (98-107); Glucose 149 mg/dL (74-99); Magnesium 1.7 mg/dL (1.6-2.3); Non-African American GFR(CKD) 88 (>60 ml/min/1.73 sqM); Potassium 4.2 mmol/L (3.5-5.1); Sodium 137 mmol/L (137-145); Total Bilirubin 0.5 mg/dL (0.2-1.3)
[2021-02-26 20:43] LABS: Partial Thromboplastin Time 22.5 sec (22.0-30.0); Prothrombin Time 10.9 sec (9.0-12.0)
--- NOTE | 2021-02-26 21:02 | XR ---
EXAMINATION TYPE: XR chest 2V DATE OF EXAM: 02/26/2021 COMPARISON: 09/26/2020 HISTORY: Short of breath. Chest pain TECHNIQUE: FINDINGS: Heart is normal. Lungs are clear of consolidation. There are no hilar masses. There is pulm onary hyperinflation with flattening of the diaphragm. There are chest leads. IMPRESSION: No active cardiopulmonary disease. There is probably COPD. No change.
[2021-02-26 21:43] VITALS: BP 133/92; PULSE 105; RESP 16
== END 2021-02-26 21:43 | disposition home or self-care (01) ==
LOC: EC 19:54
DX: J44.1 Chronic obstructive pulmonary disease with (acute) exacerbation (principal); F32.9 Major depressive disorder, single episode, unspecified; F17.200 Nicotine dependence, unspecified, uncomplicated
CPT/HCPCS: 36415; 71046; 80053; 83735; 84484; 85025; 85610; 85730; 93005; 94640; 99285

== ENCOUNTER 2021-05-06 08:51 | Emergency (ER) | payer MEDICARE ==
[2021-05-06 08:57] VITALS: TEMP 97.7
[2021-05-06] MEDS ORDERED: methylPREDNISolone SOD SUCCI 125 MG/2 ML VIAL IV STA (09:00)
[2021-05-06] MEDS ORDERED: IPRATROPIUM-ALBUTEROL 3 ML NEB INHALATION STA (09:00)
--- NOTE | 2021-05-06 09:04 | ED ---
General Adult HPI - General Chief complaint: Shortness of Breath Stated complaint: KEL Time Seen by Provider: 05/06/21 08:55 Source: patient, EMS, RN notes reviewed, old records reviewed Mode of arrival: EMS Limitations: no limitations - History of Present Illness Initial comments: This is a 75-year-old female with past medical history significant for COPD and continues to smoke. Patient states she did not get COVID Vaccine. Patient comes in today because over the last few days when it has been hot she's had more of a difficult time breathing and this morning, much worse so she called the ambulance. Patient states she also started having diarrhea this morning. Patient denies any loss of taste or smell. Patient denies headache patient denies numbness weakness. Patient denies any chest pain or palpitations per patient denies abdominal pain patient denies nausea vomiting. Patient denies having a fever recently she denies any significant cough. Patient denies headache patient denies numbness weakness. Patient denies lightheadedness di zziness or near syncopal episode. - Related Data Home Medications Medication Instructions Recorded Confirmed Tiotropium 18 Mcg/Puff [Spiriva] 1 cap INHALATION RT-DAILY 10/03/17 05/06/21 Albuterol Inhaler [Ventolin Hfa 2 puff INHALATION RT-QID PRN 09/23/20 05/06/21 Inhaler] Ipratropium-Albuterol Nebulize 3 ml INHALATION RT-QID 09/23/20 05/06/21 [Duoneb 0.5 mg-3 mg/3 ml Soln] predniSONE 5 mg PO DAILY 05/06/21 05/06/21 Previous Rx's Medication Instructions Recorded Amoxicillin/Potassium Clav 1 tab PO BID 7 Days #14 tab 05/06/21 [Augmentin 875-125 Tablet] predniSONE [Deltasone] 40 mg PO DAILY #8 tab 05/06/21 Allergies Allergy/AdvReac Type Severity Reaction Status Date / Time sulfamethoxazole Allergy Unknown Unknown Verified 05/06/21 10:07 [From Bactrim] Childhood trimethoprim [From Bactrim] Allergy Unknown Unknown Verified 05/06/21 10:07 Childhood Review of Systems ROS Statement: Those systems with pertinent positive or pertinent negative responses have been documented in the HPI. ROS Other: All systems not noted in ROS Statement are negative. Past Medical History Past Medical History: Cancer, COPD Additional Past Medical History / Comment(s): BASAL CELL CA, ARTHRITIS, OXYGEN AT 2-2.5 LITERS AT HS. History of Any Multi-Drug Resistant Organisms: None Reported Past Surgical History: Orthopedic Surgery Additional Past Surgical History / Comment(s): COLONOSCOPY'S, RETINAL TEAR LEFT EYE, CATARACT RIGHT EYE. Past Anesthesia/Blood Transfusion Reactions: No Reported Reaction Past Psychological History: No Psychological Hx Reported, Depression Smoking Status: Current every day smoker Past Alcohol Use History: Occasional Past Drug Use History: None Reported - Past Family History Mother Family Medical History: No Reported History General Exam - General Exam Comments Initial Comments: GENERAL: Patient is well-developed and well-nourished. Patient is nontoxic and well- hydrated and is in mild distress. ENT: Neck is soft and supple. No significant lymphadenopathy is noted. Oropharynx is clear. Moist mucous membranes. Neck has full range of motion without eliciting any pain. EYES: The sclera were anicteric and conjunctiva were pink and moist. Extraocular movements were intact and pupils were equal round and reactive to light. Eyelids were unremarkable. PULMONARY: Expiratory wheezing CARDIOVASCULAR: There is a regular rate and rhythm without any murmurs gallops or rubs. ABDOMEN: Soft and nontender with normal bowel sounds. SKIN: Skin is clear with no lesions or rashes and otherwise unremarkable. NEUROLOGIC: Patient is alert and oriented x3. Cranial nerves II through XII are grossly intact. Motor and sensory are also intact. Normal speech, volume and content. Symmetrical smile. MUSCULOSKELETAL: Normal extremities with adequate strength and full range of motion. No lower extremity swelling or edema. No calf tenderness. LYMPHATICS: No significant lymphadenopathy is noted PSYCHIATRIC: Normal psychiatric evaluation. Limitations: no limitations Course Vital Signs 05/06/21 05/06/21 05/06/21 08:54 09:47 10:20 Temperature 97.7 F Pulse Rate 98 96 Respiratory 18 18 16 Rate Blood Pressure 155/91 145/66 O2 Sat by Pulse 99 Oximetry Medical Decision Making - Medical Decision Making EKG shows sinus rhythm with occasional PAC at 89 bpm GA interval 218 QRS is 100 QT interval 376 QTC is 457. Patient's EKG shows no ST segment elevation Chest x-ray shows no acute abnormality. Patient received multiple treatments and steroids in the emergency department I went back and reevaluated her she sounded much improved but did have some extra wheezing still patient however refused to be admitted stated she wanted to go home and she would be much better at home. Patient states the reason she got worse yesterday she was away from home and didn't have any of her medications. - Lab Data Result diagrams: 05/06/21 09:03 05/06/21 09:03 Lab Results 05/06/21 05/06/21 05/06/21 Range/Units 09:03 09:03 09:03 WBC 7.3 (3.8-10.6) k/uL RBC 4.77 (3.80-5.40) m/uL Hgb 14.7 (11.4-16.0) gm/dL Hct 45.2 (34.0-46.0) % MCV 94.9 (80.0-100.0) fL MCH 30.9 (25.0-35.0) pg MCHC 32.5 (31.0-37.0) g/dL RDW 13.9 (11.5-15.5) % Plt Count 171 (150-450) k/uL MPV 8.6 Neutrophils % 77 % Lymphocytes % 13 % Monocytes % 4 % Eosinophils % 3 % Basophils % 1 % Neutrophils # 5.6 (1.3-7.7) k/uL Lymphocytes # 1.0 (1.0-4.8) k/uL Monocytes # 0.3 (0-1.0) k/uL Eosinophils # 0.2 (0-0.7) k/uL Basophils # 0.1 (0-0.2) k/uL PT 10.3 (9.0-12.0) sec INR 1.0 (<1.2) APTT 24.6 (22.0-30.0) sec Sodium 138 (137-145) mmol/L Potassium 4.3 (3.5-5.1) mmol/L Chloride 103 (98-107) mmol/L Carbon Dioxide 28 (22-30) mmol/L Anion Gap 7 mmol/L BUN 20 H (7-17) mg/dL Creatinine 0.65 (0.52-1.04) mg/dL Est GFR (CKD-EPI)AfAm >90 (>60 ml/min/1.73 sqM) Est GFR (CKD-EPI)NonAf 88 (>60 ml/min/1.73 sqM) Glucose 108 H (74-99) mg/dL Plasma Lactic Acid Roldan (0.7-2.0) mmol/L Calcium 9.6 (8.4-10.2) mg/dL Magnesium 1.9 (1.6-2.3) mg/dL Total Bilirubin 0.5 (0.2-1.3) mg/dL AST 37 H (14-36) U/L ALT 28 (4-34) U/L Alkaline Phosphatase 63 (38-126) U/L Troponin I (0.000-0.034) ng/mL Total Protein 6.9 (6.3-8.2) g/dL Albumin 4.4 (3.5-5.0) g/dL Coronavirus (PCR) (Not Detectd) 05/06/21 05/06/21 05/06/21 Range/Units 09:03 09:03 09:03 WBC (3.8-10.6) k/uL RBC (3.80-5.40) m/uL Hgb (11.4-16.0) gm/dL Hct (34.0-46.0) % MCV (80.0-100.0) fL MCH (25.0-35.0) pg MCHC (31.0-37.0) g/dL RDW (11.5-15.5) % Plt Count (150-450) k/uL MPV Neutrophils % % Lymphocytes % % Monocytes % % Eosinophils % % Basophils % % Neutrophils # (1.3-7.7) k/uL Lymphocytes # (1.0-4.8) k/uL Monocytes # (0-1.0) k/uL Eosinophils # (0-0.7) k/uL Basophils # (0-0.2) k/uL PT (9.0-12.0) sec INR (<1.2) APTT (22.0-30.0) sec Sodium (137-145) mmol/L Potassium (3.5-5.1) mmol/L Chloride (98-107) mmol/L Carbon Dioxide (22-30) mmol/L Anion Gap mmol/L BUN (7-17) mg/dL Creatinine (0.52-1.04) mg/dL Est GFR (CKD-EPI)AfAm (>60 ml/min/1.73 sqM) Est GFR (CKD-EPI)NonAf (>60 ml/min/1.73 sqM) Glucose (74-99) mg/dL Plasma Lactic Acid Roldan 0.8 (0.7-2.0) mmol/L Calcium (8.4-10.2) mg/dL Magnesium (1.6-2.3) mg/dL Total Bilirubin (0.2-1.3) mg/dL AST (14-36) U/L ALT (4-34) U/L Alkaline Phosphatase (38-126) U/L Troponin I <0.012 (0.000-0.034) ng/mL Total Protein (6.3-8.2) g/dL Albumin (3.5-5.0) g/dL Coronavirus (PCR) Not Detected (Not Detectd) Disposition Clinical Impression: Acute exacerbation of chronic obstructive pulmonary disease (COPD) Disposition: HOME SELF-CARE Condition: Good Instructions (If sedation given, give patient instructions): COPD (Chronic Obstructive Pulmonary Disease) (ED) Prescriptions: Amoxicillin/Potassium Clav [Augmentin 875-125 Tablet] 1 tab PO BID 7 Days #14 tab predniSONE [Deltasone] 40 mg PO DAILY #8 tab Is patient prescribed a controlled substance at d/c from ED?: No Referrals: Jamie Brooks DO [Primary Care Provider] - 1-2 days
[2021-05-06] MEDS ORDERED: ALBUTEROL HFA INHALER INHALATION STA (09:07)
[2021-05-06 09:32] LABS: Basophils # (A) 0.1 k/uL (0-0.2); Basophils % (A) 1 %; Eosinophils # (A) 0.2 k/uL (0-0.7); Eosinophils % (A) 3 %; HCT 45.2 % (34.0-46.0); HGB 14.7 gm/dL (11.4-16.0); Lymphocytes % (A) 13 %; MCH 30.9 pg (25.0-35.0); MCHC 32.5 g/dL (31.0-37.0); MCV 94.9 fL (80.0-100.0); Mean Platelet Volume 8.6; Monocytes # (A) 0.3 k/uL (0-1.0); Monocytes % (A) 4 %; Neutrophils # (A) 5.6 k/uL (1.3-7.7); Neutrophils % (A) 77 %; Platelet Count 171 k/uL (150-450); RBC 4.77 m/uL (3.80-5.40); RDW 13.9 % (11.5-15.5); WBC 7.3 k/uL (3.8-10.6)
[2021-05-06 09:47] LABS: Partial Thromboplastin Time 24.6 sec (22.0-30.0); Prothrombin Time 10.3 sec (9.0-12.0)
--- NOTE | 2021-05-06 09:47 | XR ---
EXAMINATION TYPE: XR chest 2V DATE OF EXAM: 05/06/2021 COMPARISON: Prior chest x-ray 02/26/2021, CT chest 07/09/2019 HISTORY: Difficulty breathing TECHNIQUE: Frontal and lateral views of the chest are obtained. FINDINGS: There is no focal air space opacity, pleural effusion, or pneumothorax seen. The cardiac silhouette size is within normal limits. There are overlying leads. The osseous structures are intac t. Prominent lung volumes suggest underlying COPD. There is a spinal curvature as on prior. Interstit ium is mildly increased as on previous exam. IMPRESSION: No acute cardiopulmonary process. Patient with known emphysema.
[2021-05-06 09:49] LABS: ALT 28 U/L (4-34); AST 37 U/L (14-36); African American GFR (CKD) >90 (>60 ml/min/1.73 sqM); Albumin 4.4 g/dL (3.5-5.0); Alkaline Phosphatase 63 U/L (38-126); Anion Gap 7 mmol/L; Blood Urea Nitrogen 20 mg/dL (7-17); Calcium 9.6 mg/dL (8.4-10.2); Carbon Dioxide 28 mmol/L (22-30); Chloride 103 mmol/L (98-107); Glucose 108 mg/dL (74-99); Magnesium 1.9 mg/dL (1.6-2.3); Non-African American GFR(CKD) 88 (>60 ml/min/1.73 sqM); Potassium 4.3 mmol/L (3.5-5.1); Sodium 138 mmol/L (137-145); Total Bilirubin 0.5 mg/dL (0.2-1.3); Total Protein 6.9 g/dL (6.3-8.2)
[2021-05-06 10:30] VITALS: BP 145/66; RESP 16
[2021-05-06] MEDS ORDERED: ALBUTEROL NEBULIZED 2.5 MG/3 ML INHALATION STA (11:50)
[2021-05-06 12:01] VITALS: PULSE 70
== END 2021-05-06 12:12 | disposition home or self-care (01) ==
LOC: EC 08:51
DX: J44.1 Chronic obstructive pulmonary disease with (acute) exacerbation (principal); F32.9 Major depressive disorder, single episode, unspecified; F17.200 Nicotine dependence, unspecified, uncomplicated; M19.90 Unspecified osteoarthritis, unspecified site
CPT/HCPCS: 99285; 96374; 36415; 94640; 93005; 80053; 83605; 83735; 84484; 85025; 85610; 85730; 87635; 71046; J2930